=== PATIENT | male | born 1960 | race Caucasian/White ===

== ENCOUNTER → 2017-09-04 16:58 | Outpatient (CLI) | payer MEDICARE, SELFPAY | PROVIDERS: Visit Provider Internal Medicine Hematology & Oncology | DX: C90.00 Multiple myeloma not having achieved remission (principal) | CPT/HCPCS: 86850; 86900 ==

== ENCOUNTER 2018-06-25 12:58 | Inpatient (IN) | payer MEDICARE, MEDICAID, SELFPAY ==
[2018-06-25] VITALS (8 sets, daily range): BP systolic 122–134; BP diastolic 69–79; PULSE 81–95; RESP 15–26; TEMP 36.7–37.5; O2SAT 95–98; BMI 25.1; BMI 25.2; BMI 25.4
[2018-06-25] MEDS: 0.9% Normal Saline 1,000 ML 999 ML IV (15:05)
[2018-06-25 15:24] LABS: Absolute Lymphocyte Count 0.74 X10^3/ul (0.83-4.51); Absolute Neutrophil Count 3.9 X10^3/uL (2.0-7.7); Basophil# 0.01 X10^3/uL; Basophil% 0.2 % (0-1); Eosinophil# 0.06 X10^3/uL; Eosinophils% 1.2 % (0-5); Hemoglobin 12.9 g/dl (13.0-16.5); Lymphocyte # 0.74 X10^3/ul (4.0); Lymphocyte % 14.3 % (19-41); Mean Corp Hgb Conc 33.1 g/gl (32-36); Mean Corpuscular Hgb 32.3 pg (27.0-32.0); Mean Corpuscular Volume 97.5 fL (80-94); Mean Platelet Vol. 10.5 fl (6.2-12.0); Monocyte# 0.51 X10^3/uL; Monocyte% 9.8 % (0-10); Neutrophil # 3.86 X10^3/uL (2.7-7.7); Neutrophil % 74.3 % (47-70); Platelet Count 211 K/mm3 (150-450); RBC Distribution Width CV 13.3 % (11.6-14.6); RBC Distribution Width SD 47.5 fl (35.1-43.9); White Blood Count 5.2 K/mm3 (4.4-11.0)
[2018-06-25 15:27] LABS: AST(SGOT) 34 U/L (15-37); Alanine Aminotransfer ALT/SGPT 36 U/L (16-61); Albumin, Serum 3.6 g/dL (3.2-5.0); Alkaline Phosphatase 132 U/L (45-117); Anion Gap 11 (5-15); BUN 20 mg/dL (7-18); Calcium,Total 12.8 mg/dL (8.5-10.1); Chloride 104 mmol/L (98-107); Creatinine, Serum 2.49 mg/dL (0.70-1.30); EST Glomerular Filtration Rate 29 mL/min (>60); Est Glom Filt Rate - Afr Amer 35 mL/min (>60); Estimated Creatinine Clearance 32.73 ml/min; Globulin 3.6 g/dL (2.2-4.2); Glucose 95 mg/dL (74-106); Protein, Total 7.2 g/dL (6.4-8.2); Sodium Level 141 mmol/L (136-145)
[2018-06-25 15:33] LABS: POSITIVE COUNT NO; POSITIVE DIFFERENTIAL NO; POSITIVE MORPHOLOGY NO
--- NOTE | 2018-06-25 15:33 | ED.RN ---
LAB CALLED CRITICAL LAB ON THIS PT CALCIUM OF 12.8, DR STRANGE NOTIFIED, NFO GIVEN AT THIS TIME
--- NOTE | 2018-06-25 15:48 | ED.VISSUMM ---
- ER Visit Summary Date of Service: 06/25/18 Chief Complaint: Acute kidney injury History of Present Illness: The patient is a 57 M who was sent for acute kidney injury. He has a history of multiple myeloma. He has been doing well on his treatment. He had outside labs that showed an elevated creatinine and his calcium was 14.2. He has decreased appetite. Otherwise no symptoms. Physical Examination: Afebrile and vital signs unremarkable. No acute distress. Alert and oriented. Heart regular. Lungs clear. Abdomen soft. Test Results: Hematoma 12.9, BUN 20, creatinine 2.49, total bilirubin 1.3, alkaline phosphatase 132, calcium 12.8. Emergency Department Course and Treatment: Patient was treated with IV fluids. Labs were obtained. He was admitted to the hospitalist. Treatment Plan: As above Disposition: Admission Impression: 1. Acute kidney injury 2. Hypercalcemia 3. Multiple myeloma This note was generated with Speek dictation software. It may contain incorrect words, spelling, and punctuation that were not noted in review of the chart prior to signing ED Disposition - Plan for ED Patient: Chief Complaint: Abn Labs Referrals: Care Physician,No Primary [Primary Care Provider] -
--- NOTE | 2018-06-25 15:51 | ED.DCSUM_ITS ---
- ER Visit Summary Date of Service: 06/25/18 Chief Complaint: Acute kidney injury History of Present Illness: The patient is a 57 M who was sent for acute kidney injury. He has a history of multiple myeloma. He has been doing well on his treatment. He had outside labs that showed an elevated creatinine and his calcium was 14.2. He has decreased appetite. Otherwise no symptoms. Physical Examination: Afebrile and vital signs unremarkable. No acute distress. Alert and oriented. Heart regular. Lungs clear. Abdomen soft. Test Results: Hematoma 12.9, BUN 20, creatinine 2.49, total bilirubin 1.3, alkaline phosphatase 132, calcium 12.8. Emergency Department Course and Treatment: Patient was treated with IV fluids. Labs were obtained. He was admitted to the hospitalist. Treatment Plan: As above Disposition: Admission Impression: 1. Acute kidney injury 2. Hypercalcemia 3. Multiple myeloma This note was generated with CriticalBlue dictation software. It may contain incorrect words, spelling, and punctuation that were not noted in review of the chart prior to signing ED Disposition - Plan for ED Patient: Chief Complaint: Abn Labs Referrals: Care Physician,No Primary [Primary Care Provider] -
--- NOTE | 2018-06-25 16:22 | PCM.HP.STD ---
Problem List (1) DANIEL (acute kidney injury) Status: Acute (2) Hypercalcemia Status: Acute History of Present Illness Date of Admission: 06/25/18 Chief Complaint: weakness The patient is a 57 year old M with multiple myeloma, who is been feeling weak for the past several weeks. Had some lab work today that was alarmed urgency room. In the emergency room, patient was noted to have a calcium of 12.8 and a creatinine of 2.49. No baseline lab work is available in our electronic medical record. Patient's has noted that he has a different speech, that it is more slurred. Patient notes that he has been weaker and requiring the use of a walker. Patient be admitted for further evaluation and treatment of his hypercalcemia and presumed acute kidney injury. [] Past Medical History Medical History: Medical History (Last Updated 06/25/18 @ 16:24 by Clarence Morales DO) Multiple myeloma C90.00 Allergies hydrocodone Adverse Reaction (Verified 06/25/18 12:58) Other Home Medications: Ambulatory Orders Medication Instructions Recorded Aspirin/Caffeine [Back-Body Pain 1 tab PO DAILY 06/25/18 Reliever Caplet] Gabapentin [Neurontin] 300 mg PO TID 06/25/18 Oxycodone HCl/Acetaminophen 2 tab PO Q4H PRN PRN 06/25/18 [Oxycodone-Acetaminophen 5-325] Potassium Chloride 20 meq PO DAILY 06/25/18 Smoking Status: Never smoker Tobacco Use: Non-smoker Alcohol: Occasional Drugs: None - *Family History Maternal History Items: Unknown - Patient is adopted Review of Systems Constitutional: Denies: Anorexia, Chills, Fever Eyes: Denies: Blurred vision, Double vision HEENT: Denies: Head Aches, Sinus Congestion, Sinus Drainage Cardiovascular: Denies: Chest Pain, Palpitations Respiratory: Denies: Cough, Shortness of breath at rest, Sputum production Gastrointestinal: Denies: Abdominal Pain, Nausea, Vomiting Genitourinary: Denies: Dysuria Musculoskeletal: Denies: Joint Pain, Joint Tenderness Skin: Denies: Rash, Wounds Neurological: Reports: Balance problems. Denies: Blurred vision, Double vision Psychiatric: Denies: Anxiety, Depression Endocrine: Denies: Change in Body Habitus, Heat/ Cold Intolerance Hematologic/ Lymphatic: Denies: Easy Bruising, Easy Bleeding, Hx of blood clot Comment: A 10 point review of systems were negative except as mentioned in the history of present illness and the other review of systems. VTE Information - Inpt Only VTE Present on Admission: No VTE Pharm Prophylaxis ordered?: Yes Patient Problems: Active and Suspected Problems DANIEL (acute kidney injury) (Acute) Hypercalcemia (Acute) - Physical Exam General: Alert, Cooperative, No apparent distress HEENT: Atraumatic, PERRLA, EOMI, Normocephalic Oral: Moist Mucosa, - - Edentulous Neck: No Nodes, Thyroid Normal Size and Texture Lungs: Clear to auscultation, Normal air movement, No rhonchi, No wheeze Cardiovascular: Regular rate, Regular Rhythm, Normal S1, Normal S2, No murmurs Abdomen: Bowel Sounds Present, Soft, Non Tender, Non-Distended, No Hepato-splenomegaly Extremities: No edema, No Calf Tenderness Skin: No rashes, No breakdown Musculoskeletal: No Tenderness to Palpation of Joints or Extremities, No Muscle Wasting Neurological: Cranial nerves II-XII grossly intact, Motor Exam 5/5 strength throughout, Muscle tone normal, Sensory exam intact to light touch and pain Psych/Mental Status: Normal Affect, Appropriate Vital Signs Temp Pulse Resp BP Pulse Ox 36.7 C 81 26 H 122/73 H 96 06/25/18 15:30 06/25/18 15:30 06/25/18 15:30 06/25/18 15:30 06/25/18 15:30 Oxygen Delivery Method Room Air Weight: 77.3 kg Body Mass Index (BMI) 25.1 Laboratory Tests Past 24 Hrs 06/25/18 06/25/18 15:04 15:04 WBC 5.2 RBC 4.00 L Hgb 12.9 L Hct 39.0 L MCV 97.5 H MCH 32.3 H MCHC 33.1 RDW 13.3 RDW Differential 47.5 H Plt Count 211 MPV 10.5 Immature Gran % (Auto) 0.200 Neut % (Auto) 74.3 H Lymph % (Auto) 14.3 L [place] % (Auto) 9.8 Eos % (Auto) 1.2 Baso % (Auto) 0.2 Absolute Neuts (auto) 3.9 Absolute Lymphs (auto) 0.74 L Total Counted Not Reportable Sodium 141 Potassium 4.0 Chloride 104 Carbon Dioxide 26.0 Anion Gap 11 BUN 20 H Creatinine 2.49 H Estim Creat Clear Calc 32.73 Est GFR (MDRD) Af Amer 35 L Est GFR (MDRD) Non-Af 29 L BUN/Creatinine Ratio 8.0 L Glucose 95 Calcium 12.8 H* Total Bilirubin 1.30 H AST 34 ALT 36 Alkaline Phosphatase 132 H Total Protein 7.2 Albumin 3.6 Globulin 3.6 Albumin/Globulin Ratio 1.0 Assessment/Plan All Active Problems DANIEL (acute kidney injury) (Acute) Hypercalcemia (Acute) 1. Acute hypercalcemia Likely due to his multiple myeloma Will check parathyroid hormone IV fluids with half-normal saline at 200 cc/h for 2 L 2. Acute kidney injury Presumed new as no baseline labs available to compare to at this time IV fluids Check urine studies Suspect related with the hypercalcemia If worse, consider nephrology consultation. 3. Multiple myeloma Follows with Dr. Soto Hold off on consultation at this time 4. DVT prophylaxis with heparin 5. Advanced care planning: Discussed CPR, intubation and PEG tube with patient. Patient would want all those treatments if necessary. Case discussed with his significant other at bedside. Code Visit Inpatient E&M: 10059 Init Hosp L3
[2018-06-25] MEDS: 0.45% Normal Saline 1,000 ML 200 ML IV ×2 (17:03→22:50)
[2018-06-25 17:12] LABS: PTHIN 33.7 pg/mL (18.4-80.1)
[2018-06-25 18:29] LABS: Bacteria 0 SEEN /hpf (None Seen); Mucous, Urine 0 SEEN /hpf (<or=2+); Red Blood Cells-Urine 0 SEEN /hpf (0-5); Squamous Epithelial Cells - UA 0 SEEN /hpf (0-5)
[2018-06-25 19:10] LABS: Urine Sodium 44 mmol/L (Not Establ.)
[2018-06-25 19:31] LABS: Color, Urine Yellow (Yellow); Glucose, Dipstick Normal (Normal); Ketone-Dipstick Negative (Negative); Leukocyte Esterase-Dipstick Negative /ul (Negative); Nitrite-Dipstick Negative (Negative); Occult Blood-Urine 10 /ul (Negative); Protein-Dipstick 30 mg/dl (Negative); Urine Bilirubin Dipstick Negative (Negative); Urine Clarity Clear (Clear); Urine Urobilinogen Normal (Normal)
[2018-06-25 19:41] LABS: White Blood Cells 0-5 SEEN /hpf (0-5)
[2018-06-25] MEDS: Heparin Injection (Vial) 5,000 UNIT/ML VIAL 5000 UNIT SC (21:21)
[2018-06-25] MEDS: oxyCODONE 5 MG Tablet 10 MG PO (22:58)
[2018-06-26] VITALS (9 sets, daily range): BP systolic 95–126; BP diastolic 50–71; PULSE 69–87; RESP 16–18; TEMP 36.7–37.1; O2SAT 96–97
[2018-06-26] MEDS: Heparin Injection (Vial) 5,000 UNIT/ML VIAL 5000 UNIT SC ×3 (06:17→21:05)
[2018-06-26 07:56] LABS: Anion Gap 12 (5-15); BUN 19 mg/dL (7-18); BUN/Creat Ratio 8.2 RATIO (10-20); Calcium,Total 11.6 mg/dL (8.5-10.1); Chloride 106 mmol/L (98-107); Creatinine, Serum 2.31 mg/dL (0.70-1.30); EST Glomerular Filtration Rate 31 mL/min (>60); Est Glom Filt Rate - Afr Amer 38 mL/min (>60); Estimated Creatinine Clearance 34.13 ml/min; Glucose 88 mg/dL (74-106); Magnesium 1.8 mg/dL (1.6-2.6); Potassium 3.4 mmol/L (3.5-5.1); Sodium Level 143 mmol/L (136-145)
[2018-06-26] MEDS: 0.9% Normal Saline 1,000 ML 150 ML IV ×3 (09:48→23:09)
[2018-06-26] MEDS: Furosemide 40 MG/4 ML Vial IV (09:49)
--- NOTE | 2018-06-26 09:55 | EKG12_ITS ---
Test Reason : ABNORMAL LABS Blood Pressure : / mmHG Vent. Rate : 082 BPM Atrial Rate : 082 BPM P-R Int : 166 ms QRS Dur : 094 ms QT Int : 334 ms P-R-T Axes : 070 044 052 degrees QTc Int : 390 ms Normal sinus rhythm Normal ECG Confirmed by NEAL VALDES, DION ([id number]), editor index PATRICE DENIS ([id number]) on 06/28/2018 11:01:08 AM Referred By: SONIA Confirmed By:DION DE JESUS MD
[2018-06-26 10:06] LABS: Phosphorus 3.8 mg/dL (2.5-4.9)
[2018-06-26 10:14] LABS: Vitamin D,25 Hydroxy 8.6 ng/mL (29.95-100.01)
--- NOTE | 2018-06-26 10:20 | PN_ITS ---
Patient Problems: Active and Suspected Problems (Last Updated 06/25/18 @ 16:24 by Clarence Morales DO) DANIEL (acute kidney injury) (Acute) Hypercalcemia (Acute) Subjective: Chief complaint: Follow-up after admission for acute hypercalcemia and acute kidney injury. Patient seen and examined. No acute events overnight. He denied any significant complaints. He denied abdominal pain, nausea or vomiting. He denied chest pain or shortness of breath. He has been urinating adequately. Denies fever or chills. His vital signs are stable. - Physical Exam General: Alert, Oriented x3, Cooperative, No apparent distress HEENT: Atraumatic, PERRLA, EOMI, Normocephalic Oral: Moist Mucosa, No Gingival or Mucosal Lesions/ Ulcerations Neck: Supple, No JVD, Negative Carotid Bruits, Trachea Midline, Thyroid Normal Size and Texture Lungs: Clear to auscultation, Normal air movement, No rhonchi, No wheeze, No rales Cardiovascular: Regular rate, Regular Rhythm, Normal S1, Normal S2, PMI Normal Abdomen: Bowel Sounds Present, Soft, Non Tender, Non-Distended, No Hepato- splenomegaly Extremities: No clubbing, No cyanosis, No edema Skin: No rashes, No breakdown Lymphatic: No Cervical, Supraclavicular, or Inguinal Adenopathy Neurological: Cranial nerves II-XII grossly intact, Motor Exam 5/5 strength throughout Psych/Mental Status: Normal Affect, Appropriate, Alert and oriented to time, place, person, mood and affect Vital Signs Temp Pulse Resp BP Pulse Ox 98.5 F 84 18 95/50 L 96 06/26/18 09:45 06/26/18 09:45 06/26/18 09:45 06/26/18 09:45 06/26/18 09:45 Oxygen Delivery Method Room Air Weight: 167 lb Body Mass Index (BMI) 25.4 Intake and Output for Last 24 Hours 06/24/18 06/25/18 06/26/18 23:59 23:59 23:59 Intake Total 2664 / 2664 Output Total 550 / 550 Balance 2114 / 2114 Laboratory Tests Past 24 Hrs 06/25/18 06/25/18 06/25/18 15:04 15:04 15:04 WBC 5.2 RBC 4.00 L Hgb 12.9 L Hct 39.0 L MCV 97.5 H MCH 32.3 H MCHC 33.1 RDW 13.3 RDW Differential 47.5 H Plt Count 211 MPV 10.5 Immature Gran % (Auto) 0.200 Neut % (Auto) 74.3 H Lymph % (Auto) 14.3 L [place] % (Auto) 9.8 Eos % (Auto) 1.2 Baso % (Auto) 0.2 Absolute Neuts (auto) 3.9 Absolute Lymphs (auto) 0.74 L Total Counted Not Reportable Eos Smear Total Cells Serum Viscosity Sodium 141 Potassium 4.0 Chloride 104 Carbon Dioxide 26.0 Anion Gap 11 BUN 20 H Creatinine 2.49 H Estim Creat Clear Calc 32.73 Est GFR (MDRD) Af Amer 35 L Est GFR (MDRD) Non-Af 29 L BUN/Creatinine Ratio 8.0 L Glucose 95 Calcium 12.8 H* Ionized Calcium Phosphorus Magnesium Total Bilirubin 1.30 H AST 34 ALT 36 Alkaline Phosphatase 132 H Total Protein 7.2 Total Protein (PEP) Albumin 3.6 Albumin (PEP) Globulin 3.6 Globulin (PEP) Albumin/Globulin Ratio 1.0 Albumin/Globulin (PEP) Rampu-7-Nwdfgitfi Makrt-4-Kifzkvsrd Beta Globulins Gamma Globulins M-Abimael Vitamin D 25-Hydroxy Vit D 1,25-Dihydroxy PTH Intact 33.7 Urine Color Urine Clarity Urine pH Ur Specific [place] Urine Protein Urine Glucose (UA) Urine Ketones Urine Occult Blood Urine Nitrite Urine Bilirubin Urine Urobilinogen Ur Leukocyte Esterase Urine RBC Urine WBC Ur Squamous Epith Cells Urine Bacteria Urine Mucus Ur Random Sodium Urine Creatinine 06/25/18 06/25/18 06/25/18 18:15 18:15 18:15 WBC RBC Hgb Hct MCV MCH MCHC RDW RDW Differential Plt Count MPV Immature Gran % (Auto) Neut % (Auto) Lymph % (Auto) [place] % (Auto) Eos % (Auto) Baso % (Auto) Absolute Neuts (auto) Absolute Lymphs (auto) Total Counted Eos Smear Total Cells Pending Serum Viscosity Sodium Potassium Chloride Carbon Dioxide Anion Gap BUN Creatinine Estim Creat Clear Calc Est GFR (MDRD) Af Amer Est GFR (MDRD) Non-Af BUN/Creatinine Ratio Glucose Calcium Ionized Calcium Phosphorus Magnesium Total Bilirubin AST ALT Alkaline Phosphatase Total Protein Total Protein (PEP) Albumin Albumin (PEP) Globulin Globulin (PEP) Albumin/Globulin Ratio Albumin/Globulin (PEP) Eedll-1-Yfjxktkfo Rpfzk-0-Crwdqfwnz Beta Globulins Gamma Globulins M-Abimael Vitamin D 25-Hydroxy Vit D 1,25-Dihydroxy PTH Intact Urine Color Yellow Urine Clarity Clear Urine pH 6.0 Ur Specific [place] 1.020 Urine Protein 30 H Urine Glucose (UA) Normal Urine Ketones Negative Urine Occult Blood 10 H Urine Nitrite Negative Urine Bilirubin Negative Urine Urobilinogen Normal Ur Leukocyte Esterase Negative Urine RBC 0 SEEN Urine WBC 0-5 SEEN Ur Squamous Epith Cells 0 SEEN Urine Bacteria 0 SEEN Urine Mucus 0 SEEN Ur Random Sodium Urine Creatinine 87.80 06/25/18 06/26/18 06/26/18 18:15 06:47 06:47 WBC RBC Hgb Hct MCV MCH MCHC RDW RDW Differential Plt Count MPV Immature Gran % (Auto) Neut % (Auto) Lymph % (Auto) [place] % (Auto) Eos % (Auto) Baso % (Auto) Absolute Neuts (auto) Absolute Lymphs (auto) Total Counted Eos Smear Total Cells Serum Viscosity Sodium 143 Potassium 3.4 L Chloride 106 Carbon Dioxide 25.0 Anion Gap 12 BUN 19 H Creatinine 2.31 H Estim Creat Clear Calc 34.13 Est GFR (MDRD) Af Amer 38 L Est GFR (MDRD) Non-Af 31 L BUN/Creatinine Ratio 8.2 L Glucose 88 Calcium 11.6 H Ionized Calcium Pending Phosphorus Magnesium 1.8 Total Bilirubin AST ALT Alkaline Phosphatase Total Protein Total Protein (PEP) Albumin Albumin (PEP) Globulin Globulin (PEP) Albumin/Globulin Ratio Albumin/Globulin (PEP) Rzwxr-8-Ebswyaybc Hytji-6-Sgrvxgivm Beta Globulins Gamma Globulins M-Abimael Vitamin D 25-Hydroxy Vit D 1,25-Dihydroxy PTH Intact Urine Color Urine Clarity Urine pH Ur Specific [place] Urine Protein Urine Glucose (UA) Urine Ketones Urine Occult Blood Urine Nitrite Urine Bilirubin Urine Urobilinogen Ur Leukocyte Esterase Urine RBC Urine WBC Ur Squamous Epith Cells Urine Bacteria Urine Mucus Ur Random Sodium 44 Urine Creatinine 06/26/18 06/26/18 06/26/18 06:47 08:04 08:04 WBC RBC Hgb Hct MCV MCH MCHC RDW RDW Differential Plt Count MPV Immature Gran % (Auto) Neut % (Auto) Lymph % (Auto) [place] % (Auto) Eos % (Auto) Baso % (Auto) Absolute Neuts (auto) Absolute Lymphs (auto) Total Counted Eos Smear Total Cells Serum Viscosity Pending Sodium Potassium Chloride Carbon Dioxide Anion Gap BUN Creatinine Estim Creat Clear Calc Est GFR (MDRD) Af Amer Est GFR (MDRD) Non-Af BUN/Creatinine Ratio Glucose Calcium Ionized Calcium Phosphorus 3.8 Magnesium Total Bilirubin AST ALT Alkaline Phosphatase Total Protein Total Protein (PEP) Pending Albumin Albumin (PEP) Pending Globulin Globulin (PEP) Pending Albumin/Globulin Ratio Albumin/Globulin (PEP) Pending Dgwlc-7-Dfouciezv Pending Iwmcc-1-Lnkxtciiq Pending Beta Globulins Pending Gamma Globulins Pending M-Abimael Pending Vitamin D 25-Hydroxy 8.6 L Vit D 1,25-Dihydroxy PTH Intact Urine Color Urine Clarity Urine pH Ur Specific [place] Urine Protein Urine Glucose (UA) Urine Ketones Urine Occult Blood Urine Nitrite Urine Bilirubin Urine Urobilinogen Ur Leukocyte Esterase Urine RBC Urine WBC Ur Squamous Epith Cells Urine Bacteria Urine Mucus Ur Random Sodium Urine Creatinine 06/26/18 08:04 WBC RBC Hgb Hct MCV MCH MCHC RDW RDW Differential Plt Count MPV Immature Gran % (Auto) Neut % (Auto) Lymph % (Auto) [place] % (Auto) Eos % (Auto) Baso % (Auto) Absolute Neuts (auto) Absolute Lymphs (auto) Total Counted Eos Smear Total Cells Serum Viscosity Sodium Potassium Chloride Carbon Dioxide Anion Gap BUN Creatinine Estim Creat Clear Calc Est GFR (MDRD) Af Amer Est GFR (MDRD) Non-Af BUN/Creatinine Ratio Glucose Calcium Ionized Calcium Phosphorus Magnesium Total Bilirubin AST ALT Alkaline Phosphatase Total Protein Total Protein (PEP) Albumin Albumin (PEP) Globulin Globulin (PEP) Albumin/Globulin Ratio Albumin/Globulin (PEP) Zdvkb-1-Cojyskamd Noxmn-6-Cvxpxgarx Beta Globulins Gamma Globulins M-Abimael Vitamin D 25-Hydroxy Vit D 1,25-Dihydroxy Pending PTH Intact Urine Color Urine Clarity Urine pH Ur Specific [place] Urine Protein Urine Glucose (UA) Urine Ketones Urine Occult Blood Urine Nitrite Urine Bilirubin Urine Urobilinogen Ur Leukocyte Esterase Urine RBC Urine WBC Ur Squamous Epith Cells Urine Bacteria Urine Mucus Ur Random Sodium Urine Creatinine Medical Necessity - Tobacco Use Smoking Status: Never smoker Tobacco Use: Non-smoker Assessment/Plan All Active Problems (Last Updated 06/25/18 @ 16:24 by Clarence Morales DO) DANIEL (acute kidney injury) (Acute) Hypercalcemia (Acute) This is a 57 years old male patient presented to the emergency room because of weakness for several weeks duration, had blood work that was done as outpatient and that revealed hypercalcemia and acute kidney injury and he was admitted for treatment. #1 hypercalcemia: In context of history of multiple myeloma, currently on treatment. On admission, calcium was 12.8 mg/dL with normal serum albumin indicating hypercalcemia. Phosphorus and magnesium were normal. PTH was normal as well. Vitamin D 25-hydroxy is 8.6, low. Vitamin D 125 hydroxy is pending. LFT was normal. With IV fluid therapy, calcium came down to 11.6 mg/dL today. Protein electrophoresis and immunoglobulin assay are pending. Plan: Restart IV fluids at 150 cc/h, will give 1 dose of IV Lasix, repeat CBC and BMP tomorrow morning. #2 acute kidney injury: Likely secondary to hypercalcemia. Patient has no past history of chronic kidney disease. Admission creatinine was 2.49, came down to 2.31 today, slightly improved. His urine output satisfactory. Plan to continue IV fluids as above, repeat BMP tomorrow morning. #3 multiple myeloma: Currently on treatment, follows up with Dr. Matthews as outpatient. Workup for active multiple myeloma is pending. #4 peripheral neuropathy: Continue gabapentin. #5 DVT prophylaxis: Subcu heparin. This note was generated with [employer] dictation software. It may contain incorrect words, spelling, and punctuation that were not noted in checking the note before signing. Code Visit Inpatient E&M: 92616 Subs Hosp L2
--- NOTE | 2018-06-26 10:37 | PCA ---
release of medical records faxed over to 's office to obtain patients lab work
--- NOTE | 2018-06-26 10:41 | PCA ---
lab work obtained from 's office and placed on the front of pts chart
--- NOTE | 2018-06-26 11:30 | CASEMGMT ---
REINA FONSECA Face to Face with patient for initial transition planning/care coordination assessment. RN RAYMUNDO introduced self and role at [facility]. Patient lying in bed, alert and oriented, at bedside. Patient willing to participate in assessment and is able to answer all questions appropriately. Care providers, pharmacy, and demographics verified. Patient wishes to discharge home, denies need for home health at this time. Patient states he has no further needs or concerns at this time. CM to follow for discharge planning needs that may arise. PCP: Brittany Specialists: [facility] Pharmacy: [facility] Insurance: [facility] Prescription Benefit: Yes Living Will/HPOA: None LNOK: Living Arrangements: Patient lives with in home with bed and bath on first floor. Transportation: self/ DME/HHC: Patient denies need for DME Disposition Plan: Patient to discharge home with family support and follow-up plans in place. Eliane HARMAN, RN, CM
[2018-06-26] MEDS: Gabapentin 300 MG Capsule PO (17:14)
[2018-06-26] MEDS: Acetaminophen 325 MG Tablet 650 MG PO (18:00)
[2018-06-26] MEDS: oxyCODONE 5 MG Tablet 10 MG PO (18:00)
[2018-06-27] VITALS (7 sets, daily range): BP systolic 116–125; BP diastolic 66–75; PULSE 62–82; RESP 16–18; TEMP 36.7–37.1; O2SAT 95–98
[2018-06-27 04:29] LABS: 24HR. UA Prot. Total Volume 2800 mL; Urine Protein (24 Hour) 133.1 mg/dL (<11.9)
[2018-06-27] MEDS: 0.9% Normal Saline 1,000 ML 150 ML IV ×4 (05:23→23:19)
[2018-06-27] MEDS: Heparin Injection (Vial) 5,000 UNIT/ML VIAL 5000 UNIT SC ×3 (05:23→21:46)
[2018-06-27 07:03] LABS: Absolute Lymphocyte Count 0.57 X10^3/ul (0.83-4.51); Absolute Neutrophil Count 2.3 X10^3/uL (2.0-7.7); Basophil# 0.01 X10^3/uL; Basophil% 0.3 % (0-1); Eosinophil# 0.07 X10^3/uL; Eosinophils% 2.1 % (0-5); Hematocrit 35.7 % (40-54); Hemoglobin 11.7 g/dl (13.0-16.5); Lymphocyte # 0.57 X10^3/ul (4.0); Lymphocyte % 16.8 % (19-41); Mean Corp Hgb Conc 32.8 g/gl (32-36); Mean Corpuscular Hgb 32.3 pg (27.0-32.0); Mean Corpuscular Volume 98.6 fL (80-94); Mean Platelet Vol. 10.5 fl (6.2-12.0); Monocyte# 0.43 X10^3/uL; Monocyte% 12.7 % (0-10); Neutrophil # 2.31 X10^3/uL (2.7-7.7); Neutrophil % 68.1 % (47-70); Platelet Count 160 K/mm3 (150-450); RBC Distribution Width CV 13.4 % (11.6-14.6); RBC Distribution Width SD 48.3 fl (35.1-43.9); Red Blood Count 3.62 M/mm3 (4.6-6.2); White Blood Count 3.4 K/mm3 (4.4-11.0)
[2018-06-27 07:10] LABS: Anion Gap 11 (5-15); BUN 18 mg/dL (7-18); Calcium,Total 11.3 mg/dL (8.5-10.1); Chloride 109 mmol/L (98-107); Creatinine, Serum 2.25 mg/dL (0.70-1.30); EST Glomerular Filtration Rate 32 mL/min (>60); Est Glom Filt Rate - Afr Amer 39 mL/min (>60); Estimated Creatinine Clearance 35.04 ml/min; Glucose 85 mg/dL (74-106); Sodium Level 145 mmol/L (136-145)
[2018-06-27 07:14] LABS: Differential Indicated SCAN CRITERIA MET; POSITIVE COUNT NO; POSITIVE DIFFERENTIAL YES; POSITIVE MORPHOLOGY NO
[2018-06-27] MEDS: Gabapentin 300 MG Capsule PO ×3 (09:03→17:02)
--- NOTE | 2018-06-27 09:26 | PN_ITS ---
Patient Problems: Active and Suspected Problems (Last Updated 06/25/18 @ 16:24 by Clarence Morales DO) DANIEL (acute kidney injury) (Acute) Hypercalcemia (Acute) Subjective: Chief complaint: Follow-up after admission for acute hypercalcemia and acute kidney injury. Patient seen and examined. No acute events overnight. He is asymptomatic, no complaints. His vital signs are stable. - Physical Exam General: Alert, Oriented x3, Cooperative, No apparent distress HEENT: Atraumatic, PERRLA, EOMI, Normocephalic Oral: Moist Mucosa, No Gingival or Mucosal Lesions/ Ulcerations Neck: Supple, No JVD, Negative Carotid Bruits, Trachea Midline, Thyroid Normal Size and Texture Lungs: Clear to auscultation, No rhonchi, No wheeze, No rales, Diminished Cardiovascular: Regular rate, Regular Rhythm, Normal S2, PMI Normal Abdomen: Bowel Sounds Present, Soft, Non Tender, Non-Distended, No Hepato- splenomegaly Extremities: No clubbing, No cyanosis, No edema Skin: No rashes, No breakdown Lymphatic: No Cervical, Supraclavicular, or Inguinal Adenopathy Neurological: Cranial nerves II-XII grossly intact, Neuro grossly intact Psych/Mental Status: Normal Affect, Appropriate, Alert and oriented to time, place, person, mood and affect Vital Signs Temp Pulse Resp BP Pulse Ox 98.2 F 79 18 116/66 98 06/27/18 08:56 06/27/18 08:56 06/27/18 08:56 06/27/18 08:56 06/27/18 08:56 Oxygen Delivery Method Room Air Weight: 167 lb 1.766 oz Body Mass Index (BMI) 25.4 Intake and Output for Last 24 Hours 06/25/18 06/26/18 06/27/18 23:59 23:59 23:59 Intake Total 3008 / 3008 2349 / 2349 Output Total 3000 / 3000 500 / 500 Balance 1849 / 1849 Laboratory Tests Past 24 Hrs 06/26/18 06/26/18 06/26/18 08:04 08:04 08:04 WBC RBC Hgb Hct MCV MCH MCHC RDW RDW Differential Plt Count MPV Immature Gran % (Auto) Neut % (Auto) Lymph % (Auto) [place] % (Auto) Eos % (Auto) Baso % (Auto) Absolute Neuts (auto) Absolute Lymphs (auto) Total Counted Diff Path Review Sodium Potassium Chloride Carbon Dioxide Anion Gap BUN Creatinine Estim Creat Clear Calc Est GFR (MDRD) Af Amer Est GFR (MDRD) Non-Af BUN/Creatinine Ratio Glucose Calcium Phosphorus 3.8 Vitamin D 25-Hydroxy 8.6 L Vit D 1,25-Dihydroxy Pending Urine Collection Time Timed Urine Volume Ur Total Protein 24 Hr Urine Total Protein 06/26/18 06/27/18 06/27/18 22:20 05:30 05:30 WBC 3.4 L RBC 3.62 L Hgb 11.7 L Hct 35.7 L MCV 98.6 H MCH 32.3 H MCHC 32.8 RDW 13.4 RDW Differential 48.3 H Plt Count 160 MPV 10.5 Immature Gran % (Auto) 0.000 Neut % (Auto) 68.1 Lymph % (Auto) 16.8 L [place] % (Auto) 12.7 H Eos % (Auto) 2.1 Baso % (Auto) 0.3 Absolute Neuts (auto) 2.3 Absolute Lymphs (auto) 0.57 L Total Counted Not Reportable Diff Path Review May foll Sodium 145 Potassium 3.0 L Chloride 109 H Carbon Dioxide 25.0 Anion Gap 11 BUN 18 Creatinine 2.25 H Estim Creat Clear Calc 35.04 Est GFR (MDRD) Af Amer 39 L Est GFR (MDRD) Non-Af 32 L BUN/Creatinine Ratio 8.0 L Glucose 85 Calcium 11.3 H Phosphorus Vitamin D 25-Hydroxy Vit D 1,25-Dihydroxy Urine Collection Time 24.0 Timed Urine Volume 2800 Ur Total Protein 24 Hr 3726.8 H Urine Total Protein 133.1 H Medical Necessity - Tobacco Use Smoking Status: Never smoker Tobacco Use: Non-smoker Assessment/Plan All Active Problems (Last Updated 06/25/18 @ 16:24 by Clarence Morales DO) DANIEL (acute kidney injury) (Acute) Hypercalcemia (Acute) This is a 57 years old male patient presented to the emergency room because of weakness for several weeks duration, had blood work that was done as outpatient and that revealed hypercalcemia and acute kidney injury and he was admitted for treatment. #1 hypercalcemia: He is on IV fluids, received 1 dose of IV Lasix. Serum calcium is coming down very slowly, today's calcium is 11.3 mg/dL. Serum magnesium and phosphorus were normal. He had history of multiple myeloma, currently on treatment. On admission, calcium was 12.8 mg/dL with normal serum albumin indicating hypercalcemia. PTH was normal as well. Vitamin D 25-hydroxy is 8.6, low. Vitamin D 125 hydroxy is pending. LFT was normal. Protein electrophoresis and immunoglobulin assay are pending. Plan to continue IV fluids, encourage oral intake, repeat BMP tomorrow morning. #2 acute kidney injury: Likely secondary to hypercalcemia. Patient has no past history of chronic kidney disease. Admission creatinine was 2.49, came down to 2.25 today, continued to improve slowly his urine output satisfactory. Plan to continue IV fluids as above, repeat BMP tomorrow morning. #3 hypokalemia: Today's potassium is down to 3. Serum magnesium and phosphorus were normal. Plan to replace potassium with oral potassium chloride, repeat BMP tomorrow morning. #4 multiple myeloma: Currently on treatment, follows up with Dr. Soto as outpatient. Workup for active multiple myeloma is pending. #5 peripheral neuropathy: Continue gabapentin. #6 DVT prophylaxis: Subcu heparin. This note was generated with [employer] dictation software. It may contain incorrect words, spelling, and punctuation that were not noted in checking the note before signing. Code Visit Inpatient E&M: 24936 Subs Hosp L2
[2018-06-27 14:31] LABS: Pathologist Review Reviewed
[2018-06-27] MEDS: oxyCODONE 5 MG Tablet 10 MG PO (18:33)
[2018-06-27] MEDS: Acetaminophen 325 MG Tablet 650 MG PO (18:33)
[2018-06-28] MEDS: 0.9% Normal Saline 1,000 ML 150 ML IV ×2 (02:55→09:24)
[2018-06-28] MEDS: 0.9% NaCl Peripheral Flush Adult/Peds IV (02:58)
[2018-06-28 03:01] VITALS: BP 122/70; PULSE 78; RESP 18; TEMP 36.6; O2SAT 97
--- NOTE | 2018-06-28 03:22 | NURSING ---
This RN walked into pt's room to check his vitals and do his focused assessment and pt was sitting on side of bed with gown and blankets on floor & blood everywhere. Pt states was trying to get up to go to the bathroom/fix his blankets and stepped on IV tubing. Tubing was broken. This RN and GLAZIER SUPERVISOR assisted pt to get cleaned up. IV was actually still intact so was flushed and new bag & tubing just hung. Instructed pt to call next time he needed to get up to prevent anything from happening again. Bed alarm also on.
[2018-06-28] MEDS: Heparin Injection (Vial) 5,000 UNIT/ML VIAL 5000 UNIT SC (06:29)
[2018-06-28 06:43] LABS: Anion Gap 9 (5-15); BUN 14 mg/dL (7-18); BUN/Creat Ratio 6.8 RATIO (10-20); Calcium,Total 11.2 mg/dL (8.5-10.1); Chloride 117 mmol/L (98-107); Creatinine, Serum 2.07 mg/dL (0.70-1.30); EST Glomerular Filtration Rate 35 mL/min (>60); Est Glom Filt Rate - Afr Amer 43 mL/min (>60); Estimated Creatinine Clearance 38.09 ml/min; Glucose 78 mg/dL (74-106); Potassium 3.9 mmol/L (3.5-5.1); Sodium Level 148 mmol/L (136-145)
[2018-06-28 08:13] LABS: PROEL- A/G Ratio 1.2 (0.7-1.7); PROEL- Albumin 2.8 g/dL (2.9-4.4); PROEL- Alpha-1 Globulin 0.3 g/dL (0.0-0.4); PROEL- Alpha-2 Globulin 0.9 g/dL (0.4-1.0); PROEL- Beta Globulin 0.8 g/dL (0.7-1.3); PROEL- Gamma Globulin 0.3 g/dL (0.4-1.8); PROEL- Globulin, Total 2.3 g/dL (2.2-3.9); PROEL- TOTAL PROTEIN 5.1 g/dL (6.0-8.5)
[2018-06-28 08:43] VITALS: BP 119/73; PULSE 88; RESP 18; TEMP 36.1; O2SAT 98
[2018-06-28] MEDS: Gabapentin 300 MG Capsule PO ×3 (08:46→16:01)
[2018-06-28 09:31] LABS: Viscosity, Serum 1.4 rel.saline (1.6-1.9)
--- NOTE | 2018-06-28 11:19 | DCINST_ITS ---
- Discharge Diagnoses Current Active Problems: Current Active and Chronic Problems (Last Updated 06/25/18 @ 16:24 by Clarence Morales DO) DANIEL (acute kidney injury) (Acute) Hypercalcemia (Acute) You will use the following diet at home:: Regular Your food should be the consistency of: Regular Discharge Activity: Return to Normal Activity Weight Bearing Status: Weight bearing as tolerated Call your doctor if you observe: Fever of 101 or Higher, Shortness of breath, Dizziness, Fainting spells, Chest pain, Increased palpitations (irregular heartbeat), Uncontrolled pain Additional Instructions: Please see your family doctor in a week and have a blood work done at that time. Allergies/Adverse Reactions: Allergies hydrocodone Adverse Reaction (Verified 06/25/18 12:58) Other Medications to take at Discharge Gabapentin [Neurontin] 300 mg PO TID 06/25/18 Oxycodone HCl/Acetaminophen [Oxycodone-Acetaminophen 5-325] 2 tab PO Q4H PRN PRN 06/25/18 Potassium Chloride 20 meq PO DAILY 06/25/18 Primary Care Physician: Care Physician,No Primary [Primary Care Provider] - Please follow up with your Primary Care Physician in: 1 week. Test Results: Test results from this visit will be discussed in further detail at your follow- up appointment, if applicable. Please Follow Up With: Leonel Soto DO When: Tomorrow.
--- NOTE | 2018-06-28 14:03 | DS.PCM_ITS ---
Discharge Date and Diagnosis - Problem List Patient Problems: Active and Suspected Problems (Last Updated 06/25/18 @ 16:24 by Clarence Morales DO) DANIEL (acute kidney injury) (Acute) Hypercalcemia (Acute) Date of Admission: 06/25/18 Date of Discharge: 06/28/18 - Primary Discharge Diagnosis Active and Suspected Problems (Last Updated 06/25/18 @ 16:24 by Clarence Morales DO) #1 acute hypercalcemia, probably due to active multiple myeloma. #2 acute kidney injury. #3 hypokalemia. #4 multiple myeloma. Hospital Course and Treatment Operations: None Procedures: None Summary of Care Provided: Patient seen and examined on the day of discharge and appeared to be stable to be discharged home. He has no complaints. His vital signs are stable. The patient is a 57 year old M presented to the emergency room because of weakness for several weeks duration, had blood work done as outpatient that showed hypercalcemia and acute kidney injury. This patient had a history of multiple myeloma and he has been going under treatment as outpatient and has been following up with Dr. Soto as outpatient. Upon admission, his calcium was 12.8 mg/dL and his serum albumin was 3.6 which was normal and indicating true hypercalcemia. He was found to have serum creatinine of 2.49 mg/dL upon admission which is acute and he does not have a history of chronic kidney disease. He was treated with aggressive IV fluid for hydration as well as IV Lasix that was given 1 time. His serum PTH was normal at 33.7. Vitamin D 25- hydroxy was 8.6 which was normal. His LFT was normal. His potassium was low after admission because of hemodilution and it was replaced and corrected. His serum phosphorus and magnesium were normal. After discussion with Dr. Soto, the patient's oncologist, who recommended to do protein electrophoresis and immunoglobulin assay. With IV fluid therapy, patient's serum calcium and creatinine improved very slowly. His serum calcium came down from 12.8 down to 11.2 mg/dL. Serum creatinine came down from 2.48 down to 2.07 mg/dL. Patient remained asymptomatic, had good urine output. On the day of discharge, I discussed the case with Dr. Soto and we agreed to have patient go home today and follow-up with Dr. Soto tomorrow. Patient discharged home in a stable medical condition, aspirin discontinued because Dr. Soto mentioned that patient may need kidney biopsy, recommended to hydrate himself adequately, plan according to Dr. Matthews is to do PET scan in the near future looking for active multiple myeloma, plan to see Dr. Matthews tomorrow and follow-up with PCP in 1 week and recommended to have blood work done at that time. Patient Problems: Active and Suspected Problems (Last Updated 06/25/18 @ 16:24 by Clarence Morales DO) DANIEL (acute kidney injury) (Acute) Hypercalcemia (Acute) - Physical Exam General: Alert, Oriented x3, Cooperative, No apparent distress HEENT: Atraumatic, PERRLA, EOMI, Normocephalic Oral: Moist Mucosa, No Gingival or Mucosal Lesions/ Ulcerations Neck: Supple, No JVD, Negative Carotid Bruits, Trachea Midline, Thyroid Normal Size and Texture Lungs: Clear to auscultation, Normal air movement, No rhonchi, No wheeze, No rales Cardiovascular: Regular rate, Regular Rhythm, Normal S1, Normal S2, No murmurs Abdomen: Bowel Sounds Present, Soft, Non Tender, Non-Distended, No Hepato- splenomegaly Extremities: No clubbing, No cyanosis, No edema Skin: No rashes, No breakdown Lymphatic: No Cervical, Supraclavicular, or Inguinal Adenopathy Neurological: Cranial nerves II-XII grossly intact, Neuro grossly intact Psych/Mental Status: Normal Affect, Appropriate, Alert and oriented to time, place, person, mood and affect Vital Signs Temp Pulse Resp BP Pulse Ox 97.0 F L 88 18 119/73 98 06/28/18 08:43 06/28/18 08:43 06/28/18 08:43 06/28/18 08:43 06/28/18 08:43 Oxygen Delivery Method Room Air Weight: 167 lb 1.766 oz Body Mass Index (BMI) 25.4 Intake and Output for Last 24 Hours 06/26/18 06/27/18 06/28/18 23:59 23:59 23:59 Intake Total 3008 / 3008 4803 / 4803 3503 / 3503 Output Total 3000 / 3000 500 / 500 750 / 750 Balance 8 4303 / 4303 2753 / 2753 Laboratory Tests Past 24 Hrs 06/26/18 06/27/18 06/28/18 06:47 05:30 05:40 Diff Path Review Reviewed Serum Viscosity 1.4 L Sodium 148 H Potassium 3.9 Chloride 117 H Carbon Dioxide 22.0 Anion Gap 9 BUN 14 Creatinine 2.07 H Estim Creat Clear Calc 38.09 Est GFR (MDRD) Af Amer 43 L Est GFR (MDRD) Non-Af 35 L BUN/Creatinine Ratio 6.8 L Glucose 78 Calcium 11.2 H Total Protein (PEP) 5.1 L Albumin (PEP) 2.8 L Globulin (PEP) 2.3 Albumin/Globulin (PEP) 1.2 Kacka-2-Ufhvwvsjt 0.3 Icuvu-8-Xbjxkiupk 0.9 Beta Globulins 0.8 Gamma Globulins 0.3 L M-Abimael PEP Note Comment PEP Interpretation Comment Discharge Activity: Return to Normal Activity Weight Bearing Status: Weight bearing as tolerated Call your doctor if you observe: Fever of 101 or Higher, Shortness of breath, Dizziness, Fainting spells, Chest pain, Increased palpitations (irregular heartbeat), Uncontrolled pain Home Medications: Medications to take at Discharge Gabapentin [Neurontin] 300 mg PO TID 06/25/18 Oxycodone HCl/Acetaminophen [Oxycodone-Acetaminophen 5-325] 2 tab PO Q4H PRN PRN 06/25/18 Potassium Chloride 20 meq PO DAILY 06/25/18 Primary Care Physician: Care Physician,No Primary [Primary Care Provider] - Please follow up with your Primary Care Physician in: 1 week. Please Follow Up With: Leonel Soto DO When: Tomorrow. Disposition: Home Minutes spent on discharge:: 32 Patient Condition:: Stable Medical Necessity - Tobacco Use Smoking Status: Never smoker Tobacco Use: Non-smoker Meaningful Use Info Meaningful Use Diagnoses (Choose all that apply): None applicable Code Visit Inpatient E&M: 97883 Disch Hosp
[2018-06-28 14:21] VITALS: BP 117/66; PULSE 88; RESP 18; TEMP 36.7; O2SAT 99
[2018-06-28 15:28] LABS: Vitamin D 1,25-Dihydroxy <5.0 pg/mL (19.9-79.3)
[2018-06-28 15:50] LABS: Eosinophil Ct. Urine No Eosinophils Seen % (.)
== END 2018-06-28 18:10 | disposition home or self-care (01) | DRG 683 ==
LOC: ED 15:02 → MS3 16:07
PROVIDERS: Emergency Provider Emergency Medicine; Visit Provider Hospitalist
DX: N17.9 Acute kidney failure, unspecified (principal); C90.00 Multiple myeloma not having achieved remission; E83.52 Hypercalcemia; G62.9 Polyneuropathy, unspecified; E87.6 Hypokalemia; Z79.899 Other long term (current) drug therapy
CPT/HCPCS: 36415; 80048; 80053; 81001; 82306; 82330; 82570; 82652; 83735; 83970; 84100; 84156; 84165; 84300; 85025; 85810; 87205; 93005; 97162; 97165; 97802; 99281; J7030; A4216; J1940

== ENCOUNTER 2018-08-18 09:52 | Outpatient (CLI) | payer MEDICARE, MEDICAID, SELFPAY ==
[2018-06-25 16:36] VITALS: BMI 25.4
[2018-08-18] VITALS (10 sets, daily range): BP systolic 91–128; BP diastolic 59–85; PULSE 69–83; RESP 16–18; TEMP 36.4–36.9; O2SAT 98–100; BMI 25.2
[2018-08-18] MEDS: 0.9% NaCl Peripheral Flush Adult/Peds IV (12:21)
== END 2018-08-18 17:11 | disposition home or self-care (01) ==
LOC: MEDOUTP 09:53 → MS2 10:03
PROVIDERS: Referring Provider Internal Medicine Hematology & Oncology; Visit Provider Internal Medicine Hematology & Oncology
DX: Z51.89 Encounter for other specified aftercare (principal); D64.9 Anemia, unspecified; Z51.81 Encounter for therapeutic drug level monitoring
CPT/HCPCS: 36430; 86850; 86900; J7040; P9016; A4216

== ENCOUNTER → 2020-11-11 09:06 | Outpatient (CLI) | payer MEDICARE, SELFPAY ==
[2018-08-18 10:28] VITALS: BMI 25.2
[2020-11-11 09:27] VITALS: BP 146/67; PULSE 84; RESP 16; TEMP 36.8; O2SAT 96; BMI 26.6
== END ==
PROVIDERS: PCP Family Medicine; Referring Provider Internal Medicine Hematology & Oncology; Visit Provider Internal Medicine Hematology & Oncology
DX: C90.00 Multiple myeloma not having achieved remission (principal)
CPT/HCPCS: 36569

== ENCOUNTER 2021-03-01 12:57 | Emergency (ER) | payer MEDICARE, SELFPAY ==
[2021-03-01] VITALS (16 sets, daily range): BP systolic 96–118; BP diastolic 65–93; PULSE 85–110; RESP 18–22; TEMP 36.4–36.9; O2SAT 95–100; BMI 26.6
--- NOTE | 2021-03-01 13:25 | EX.ED.DYSGE1 ---
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 Patient reportedly is being treated for multiple myeloma. He had outpatient labs that showed platelet count was undetectable. [facility] hematology was unable to get platelets from [facility] in time for them to be given at the transfusion center. He was sent in for admission and transfusion of 2 units of platelets. Patient reportedly just got Neulasta. Dr. Soto did not feel that the patient needed a RBC transfusion.. [facility] Medical History Multiple myeloma Home Medications gabapentin 300 mg PO TID 06/25/18 [History Last Taken 06/24/18] oxycodone-acetaminophen 2 tab PO Q4H PRN PRN 06/25/18 [History Last Taken 06/24/18] potassium chloride 20 meq PO DAILY 06/25/18 [History Last Taken 06/24/18] dexamethasone 4 mg PO BID 11/11/20 [History Last Taken Unknown] Allergy/AdvReac Type Severity Reaction Status Date / Time hydrocodone AdvReac Other Verified 03/01/21 13:02 Social History Smoking Status: Never smoker ROS ROS ED Constitutional Constitutional ED: Denies chills or fever(s) Eyes Eyes: Denies change in vision ENT ENT ED: Denies sore throat Cardiovascular Cardiovascular: Denies chest pain Respiratory/Chest Respiratory/Chest: Denies cough or dyspnea Gastrointestinal Gastrointestinal: Denies abdominal pain or nausea Genitourinary Genitourinary ED: Denies dysuria Musculoskeletal Musculoskeletal: Denies back pain Integumentary Denies rash Neurologic Neurologic: Denies headache(s) Allergic/Immunologic Allergic/Immunologic ED: Denies urticaria EXAM Physical Exam Const Vital Signs: 03/01/21 12:58 Temperature 97.5 F L Temperature Source Temporal Pulse Rate 95 Respiratory Rate 18 Blood Pressure 99/74 Blood Pressure Mean 82 Pulse Ox 99 Oxygen Delivery Method Nasal Cannula Oxygen Flow Rate (L/min) 3 Positive well nourished and well developed General Appearance ED: well developed HEENT Reports normocephalic and head/scalp atraumatic Eyes PERRL and EOMs intact bilaterally Neck supple Chest Wall inspection of chest normal and palpation of chest normal Resp normal respiratory effort and clear to auscultation bilaterally Cardio regular rate and regular rhythm GI normal to inspection, nondistended, normoactive bowel sounds and non-tender Palpation: soft Extremity normal to inspection Neuro oriented x3 Sensorium / Orientation: alert Psych mental status grossly normal Skin no rashes or lesions noted MDM MDM MDM Narrative Medical decision making narrative: Patient was sent over from Dr. Soto's office. Fax does later come through showing CBC from this morning indicating platelet count less than 2. 2 units of platelets have been ordered. Unfortunately, we do have to get them from [facility] as well. This order has been initiated. Patient will be signed out to oncoming physician for final disposition pending transfusion of platelets. Discharge Plan Triage Chief Complaint: Abn Labs ED Provider: Nimisha Peterson Dx/Rx/DC Orders Clinical Impression: Thrombocytopenia Instructions: Thrombocytopenia Prescriptions: No Action oxycodone-acetaminophen 1 EACH tablet 2 tab PO Q4H PRN PRN (Reason: Pain) RF: 0 potassium chloride 20 MEQ tablet,ER particles/crystals 20 meq PO DAILY RF: 0 gabapentin 300 MG capsule 300 mg PO TID RF: 0 dexamethasone 4 mg tablet 4 mg PO BID RF: 0 Primary Care Provider: Gerard Sena Referrals: Gerard Sena MD [Primary Care Provider] - Leonel Soto DO [STAFF PHYSICIAN] - Keep Jerman appointment
[2021-03-01 14:31] LABS: Hematocrit 29.8 % (40-54); Hemoglobin 10.1 g/dL (13.0-16.5); Mean Corp Hgb Conc 33.9 g/dL (32-36); Mean Corpuscular Hgb 30.2 pg (27.0-32.0); Mean Corpuscular Volume 89.2 fL (80-94); POSITIVE COUNT YES; POSITIVE DIFFERENTIAL YES; POSITIVE MORPHOLOGY YES; RBC Distribution Width CV 16.3 % (11.6-14.6); RBC Distribution Width SD 53.8 fl (35.1-43.9); Red Blood Count 3.34 M/mm3 (4.6-6.2)
[2021-03-01 14:41] LABS: NRBC Flagged by Analyzer 0 % (0-5)
[2021-03-01 14:44] LABS: Differential Indicated SCAN CRITERIA MET
[2021-03-01 15:11] LABS: Platelet Estimate MKD DEC (ADEQ)
--- NOTE | 2021-03-01 18:21 | ED.RN ---
CALLED BLOOD BANK ON STATUS OF PLATELETS. BLOOD BANK STILL HAS NOT RECEIVED PLATELETS, UNSURE OF ESTIMATED ARRIVAL.
[2021-03-02 13:01] LABS: Pathologist Review Reviewed
== END 2021-03-01 22:49 | disposition home or self-care (01) ==
PROVIDERS: Emergency Provider Emergency Medicine; PCP Family Medicine
DX: D69.6 Thrombocytopenia, unspecified (principal); C90.00 Multiple myeloma not having achieved remission; Z79.52 Long term (current) use of systemic steroids
CPT/HCPCS: 85025; 86900; 86901; 86965; 99284; J7030; P9035; A4216

== ENCOUNTER → 2021-03-03 11:32 | Outpatient (CLI) | payer MEDICARE, SELFPAY ==
[2021-03-03 11:47] VITALS: BP 120/85; PULSE 96; RESP 16; TEMP 36.2; O2SAT 100; BMI 25.8
[2021-03-03] MEDS: 0.9% NaCl VAD Flush IV (12:10)
[2021-03-03 12:33] VITALS: BP 101/74; PULSE 95; RESP 16; TEMP 36.2; O2SAT 100
[2021-03-03 12:57] VITALS: BP 107/72; PULSE 93; RESP 16; TEMP 36.4
[2021-03-03 13:03] VITALS: BP 107/72; PULSE 93; RESP 20; TEMP 36.4
== END ==
PROVIDERS: PCP Family Medicine; Referring Provider Internal Medicine Hematology & Oncology; Visit Provider Internal Medicine Hematology & Oncology
DX: D61.810 Antineoplastic chemotherapy induced pancytopenia (principal); C90.00 Multiple myeloma not having achieved remission
CPT/HCPCS: 36430; 86900; 86901; 86965; J7040; P9035; A4216

== ENCOUNTER 2021-03-03 13:31 | Inpatient (IN) | payer MEDICARE, SELFPAY ==
[2021-03-03] VITALS (10 sets, daily range): BP systolic 93–121; BP diastolic 61–81; PULSE 56–107; RESP 14–20; TEMP 36.2–36.5; O2SAT 97–100; BMI 25.8; BMI 21.8
--- NOTE | 2021-03-03 14:05 | RAD_ITS ---
STUDY: X-RAY CHEST REASON FOR EXAM: Male, 60 years old. Confusion TECHNIQUE: Single AP portable view of the chest. COMPARISON: None. FINDINGS: Mild increased markings at the right lung base with blunting the right costophrenic angle. There is infiltrate should be ruled out. Normal size heart. Normal mediastinum and luke. Normal visualized pulmonary arteries. Normal visualized aortic arch and descending thoracic aorta. Normal visualized thoracic spine. Normal visualized ribs, clavicles, and shoulders. There is no demonstrated abnormality of the visualized soft tissue structures of the upper abdomen. RAD/Chest 1 View IMPRESSION: Findings suggestive of early right basilar infiltrate with blunting of the right costophrenic angle. Electronically Signed: Donavon Lopez MD at 14:42 EDT , Service support ,
--- NOTE | 2021-03-03 14:49 | EKG12_ITS ---
Test Reason : ABN LABS Blood Pressure : / mmHG Vent. Rate : 096 BPM Atrial Rate : 096 BPM P-R Int : 142 ms QRS Dur : 082 ms QT Int : 420 ms P-R-T Axes : 025 013 129 degrees QTc Int : 530 ms Normal sinus rhythm T wave abnormality, consider inferior ischemia T wave abnormality, consider anterolateral ischemia Prolonged QT Abnormal ECG Confirmed by LAST VALDES, BALDOMERO ([id number]), fashion editor ELI WARD ([id number]) on 03/04/2021 10:37:46 AM Referred By: ROXANN Confirmed By:BALDOMERO NI MD
--- NOTE | 2021-03-03 14:51 | EDS_ITS ---
HPI History of Present Illness Chief Complaint: Abn Labs Informant: patient and family Onset/Context/Timing Onset: Days Context: Gradual Onset Timing: Continuous Current Severity: Mild Maximum Severity: Mild Narrative Narrative: 60-year-old male brought in by his family for a sepsis work-up. Has a history of multiple myeloma had chemotherapy about a month ago. And has had chemotherapy multiple times over the last decade. He sees a local primary care physician and oncologist for the [facility]. He has had abnormal labs and has been hypotensive and he sent him in for further evaluation. Patient himself denies any complaints. Recently was transfused blood yesterday. Prior similar symptoms: No Recent Illness/Hospitalization: Yes [facility] Medical History Multiple myeloma Home Medications gabapentin 300 mg PO TID 06/25/18 [History Last Taken 06/24/18] oxycodone-acetaminophen 2 tab PO Q4H PRN PRN 06/25/18 [History Last Taken 06/24/18] potassium chloride 20 meq PO DAILY 06/25/18 [History Last Taken 06/24/18] acyclovir 200 mg PO BID 03/03/21 [History Last Taken Unknown] levofloxacin 500 mg PO DAILY 03/03/21 [History Last Taken Unknown] ondansetron 8 mg PO PRN PRN 03/03/21 [History Last Taken Unknown] oxycodone 10 mg PO Q6H PRN PRN 03/03/21 [History Last Taken Unknown] pantoprazole 40 mg PO DAILY 03/03/21 [History Last Taken Unknown] promethazine 25 mg PO PRN PRN 03/03/21 [History Last Taken Unknown] Allergy/AdvReac Type Severity Reaction Status Date / Time hydrocodone AdvReac Other Verified 03/03/21 13:31 Social History Smoking Status: Never smoker ROS ROS ED ROS Narrative Denies fever chills, shortness of breath, abdominal pain or headache. Review of Systems ROS Unobtainable: Denies due to encephalopathy Constitutional Constitutional ED: Denies chills or fever(s) Eyes Eyes: Denies change in vision ENT ENT ED: Denies ear pain or sore throat Cardiovascular Cardiovascular: Denies chest pain Respiratory/Chest Respiratory/Chest: Denies cough or dyspnea Gastrointestinal Gastrointestinal: Denies abdominal pain, diarrhea, nausea or vomiting Genitourinary Genitourinary ED: Denies dysuria Musculoskeletal Musculoskeletal: Denies myalgias Integumentary Denies rash Neurologic Neurologic: Denies headache(s) Psychiatric Psychiatric: Denies depression Endocrine Endocrinology: Denies polyuria Allergic/Immunologic Allergic/Immunologic ED: Denies urticaria EXAM Physical Exam Narrative Exam Narrative: 60-year-old male hypotensive. Confused per family. HEENT exam unremarkable. No signs of trauma. Neck nontender no lymphadenopathy no meningismus. Lungs clear to auscultation. Heart regular rhythm rate about 60 no murmur. Abdomen soft nontender. Moving all 4 extremities. Bruising throughout hi s left elbow area from recent blood draws. Neurologically is awake. He answers questions and follows commands. At times he is confused. No focal motor deficits. Const Vital Signs: 03/03/21 13:32 03/03/21 14:48 03/03/21 16:45 Temperature 97.1 F L Temperature Source Temporal Pulse Rate 56 L Respiratory Rate 19 H Respiratory Effort Normal Respiratory Pattern Normal Blood Pressure 93/73 Blood Pressure Mean 79 Pulse Ox 100 97 Oxygen Delivery Method Nasal Cannula Nasal Cannula Oxygen Flow Rate (L/min) 3 3 03/03/21 16:49 03/03/21 17:00 Temperature 97.2 F L 97.2 F L Temperature Source Oral Oral Pulse Rate 97 100 Respiratory Rate 20 H 15 Respiratory Effort Respiratory Pattern Blood Pressure 115/78 109/81 H Blood Pressure Mean 90 90 Pulse Ox 98 100 Oxygen Delivery Method Nasal Cannula Nasal Cannula Oxygen Flow Rate (L/min) 3 3 Positive well nourished and well developed; Negative for obese, cachectic, contractures or unkempt General Appearance ED: well developed and NAD; Negative for unkempt, cachectic or contractures Nutritional Appearance: Negative for cachectic or obese HEENT Reports moist mucous membranes Negative for trauma or tenderness Eyes PERRL and EOMs intact bilaterally Neck no lymphadenopathy, supple and no JVD General: Negative for tenderness Chest Wall inspection of chest normal and palpation of chest normal Resp normal respiratory effort and clear to auscultation bilaterally Auscultation: Negative for rales, rhonchi, wheezes or diminished lung sounds Cardio regular rate, regular rhythm, S1 normal heart sound, S2 normal heart sound and no murmurs GI normal to inspection, nondistended, normoactive bowel sounds, non-tender, non- distended and no masses Auscultation: normoactive bowel sounds Palpation: soft; Negative for tender or guarding Back/Spine no CVA tenderness General Back: Negative for CVA tenderness Cervical Spine: Negative for cervical spine tenderness Extremity normal to inspection General Extremety ED: Negative for edema or tenderness General Extremity: Negative for edema Neuro No oriented x3 and CN's II-XII intact bilaterally Sensorium / Orientation: alert; Negative for orientation impaired, lethargic or stuporous Motor Exam: strength 5/5 throughout Psych mental status grossly normal Appearance: Negative for unkempt Skin no rashes or lesions noted and no wounds Skin Narrative: Bruising left arm. MDM MDM MDM Narrative Medical decision making narrative: 60-year-old male on chemotherapy for multiple myeloma. Sent in for abnormal labs. Also hypotensive. Undergo a septic work-up. Most likely needs admitted. Neutropenic patient with right lower lobe pneumonia. Currently on chemotherapy for multiple myeloma. Will be started on IV antibiotics and admitted. Lab Data Attestation: I reviewed the patient's lab results. Lab results narrative: White count is 0. Hemoglobin of 8 he has a history of chronic anemia. Electrolytes show a gap of 6 normal creatinine. Liver enzymes unremarkable. Lactic acid of 1.6. PT INR and PTT are 18, 1 and 34. Chest x- ray shows a right lower lobe infiltrate. Patient's hemoglobin is lower than what has been most recently it was 10. Labs: Laboratory Results - last 24 hr 03/03/21 03/03/21 03/03/21 15:50 15:50 15:50 WBC 0.0 L* RBC 2.71 L Hgb 8.1 L Hct 25.4 L MCV 93.7 D MCH 29.9 MCHC 31.9 L D RDW Std Deviation 57.4 H RDW Coeff of Nicky 16.5 H Plt Count 14 L* MPV 10.1 Immature Gran % (Auto) 0.000 Neut % (Auto) 100.0 H Lymph % (Auto) 0.0 L [place] % (Auto) 0.0 Eos % (Auto) 0.0 Baso % (Auto) 0.0 Absolute Neuts (auto) 0.0 L Absolute Lymphs (auto) 0.00 L Nucleated RBC % 0 Differential Comment SCANNED Diff Path Review May foll PT INR APTT Sodium 139 Potassium 3.6 Chloride 105 Carbon Dioxide 28.0 Anion Gap 6 BUN 11 Creatinine 0.53 L Estim Creat Clear Calc 143.40 Est GFR (MDRD) Af Amer 205 Est GFR (MDRD) Non-Af 169 BUN/Creatinine Ratio 20.8 H Glucose 125 H Lactic Acid 1.6 Calcium 7.4 L Total Bilirubin 1.10 H AST 22 ALT 48 Alkaline Phosphatase 115 Troponin I High Sens 21 Total Protein 5.3 L Albumin 2.3 L Globulin 3.0 Albumin/Globulin Ratio 0.8 L 03/03/21 15:50 WBC RBC Hgb Hct MCV MCH MCHC RDW Std Deviation RDW Coeff of Nicky Plt Count MPV Immature Gran % (Auto) Neut % (Auto) Lymph % (Auto) [place] % (Auto) Eos % (Auto) Baso % (Auto) Absolute Neuts (auto) Absolute Lymphs (auto) Nucleated RBC % Differential Comment Diff Path Review PT 18.2 H INR 1.6 APTT 34.5 Sodium Potassium Chloride Carbon Dioxide Anion Gap BUN Creatinine Estim Creat Clear Calc Est GFR (MDRD) Af Amer Est GFR (MDRD) Non-Af BUN/Creatinine Ratio Glucose Lactic Acid Calcium Total Bilirubin AST ALT Alkaline Phosphatase Troponin I High Sens Total Protein Albumin Globulin Albumin/Globulin Ratio Radiography Chest X-Ray - ED: 1 View and Right Infiltrate Diagnostic Testing: Radiology Impression Chest X-Ray 03/03/21 14:05 IMPRESSION: Findings suggestive of early right basilar infiltrate with blunting of the right costophrenic angle. Electronically Signed: Donavon Lopez MD at 14:42 EDT , Service support , Brain CT 03/03/21 16:30 IMPRESSION: Chronic involutional changes of the brain. No acute hemorrhage Lytic and lucent calvarial lesions consistent with patient''s history of multiple myeloma Electronically Signed: Juan A Crawford MD at 17:08 EDT , Service support , Portable single view chest x-ray interpreted by myself and the radiologist shows right lower lobe infiltrates. Rhythm Strip Rhythm Strip: Sinus Rhythm Rate: 96 Ectopy: None EKG Initial EKG: Attestation: I personally reviewed and interpreted this EKG as follows: Interpretation: Sinus Rhythm and No Acute Injury Pattern Comments: Sinus rhythm. . Inverted T waves in V2 V3 V4 V5 and 6. This is changed from prior EKG from June 2018. Prior EKG tracings: available for review Prior: Changed Critical Care Time Critical Care Time: Yes Critical care time (excluding procedures): 30-74 minutes, Including time spent:, Discussing w/Patient &/or Family/Typesetting Machine Tender, Discussing w/Consultants, Arranging Admission or Transfer, Performing Direct Patient Care at Bedside and - (32 min) Discharge Plan Triage Chief Complaint: Abn Labs ED Provider: Marcin Kurtz Dx/Rx/DC Orders Clinical Impression: Multiple myeloma, Pneumonia, Sepsis, Acute hypotension Prescriptions: No Action oxycodone-acetaminophen 1 EACH tablet 2 tab PO Q4H PRN PRN (Reason: Pain) RF: 0 potassium chloride 20 MEQ tablet,ER particles/crystals 20 meq PO DAILY RF: 0 gabapentin 300 MG capsule 300 mg PO TID RF: 0 ondansetron 8 mg tablet,disintegrating 8 mg PO PRN PRN (Reason: Nausea) RF: 0 promethazine 25 mg tablet 25 mg PO PRN PRN (Reason: Nausea) RF: 0 acyclovir 200 mg capsule 200 mg PO BID RF: 0 levofloxacin 500 mg tablet 500 mg PO DAILY RF: 0 pantoprazole 40 mg tablet,delayed release (DR/EC) 40 mg PO DAILY RF: 0 oxycodone 10 mg tablet 10 mg PO Q6H PRN PRN (Reason: Pain) RF: 0 Primary Care Provider: Gerard Sena Referrals: Gerard Sena MD [Primary Care Provider] -
[2021-03-03 16:14] LABS: Hematocrit 25.4 % (40-54); Hemoglobin 8.1 g/dL (13.0-16.5); Mean Corp Hgb Conc 31.9 g/dL (32-36); Mean Corpuscular Hgb 29.9 pg (27.0-32.0); Mean Corpuscular Volume 93.7 fL (80-94); Mean Platelet Vol. 10.1 fl (6.2-12.0); NRBC Flagged by Analyzer 0 % (0-5); Neutrophil # 0.01 X10^3/uL (2.7-7.7); POSITIVE COUNT YES; POSITIVE DIFFERENTIAL YES; POSITIVE MORPHOLOGY YES; Platelet Count 14 K/mm3 (150-450); RBC Distribution Width CV 16.5 % (11.6-14.6); RBC Distribution Width SD 57.4 fl (35.1-43.9); Red Blood Count 2.71 M/mm3 (4.6-6.2)
[2021-03-03 16:21] LABS: ALB/GLOB Ratio 0.8 RATIO (0.9-2.4); AST(SGOT) 22 U/L (15-37); Alanine Aminotransfer ALT/SGPT 48 U/L (16-61); Albumin, Serum 2.3 g/dL (3.2-5.0); Alkaline Phosphatase 115 U/L (45-117); Anion Gap 6 (5-15); BUN 11 mg/dL (7-18); BUN/Creat Ratio 20.8 RATIO (10-20); Calcium,Total 7.4 mg/dL (8.5-10.1); Chloride 105 mmol/L (98-107); Creatinine, Serum 0.53 mg/dL (0.70-1.30); EST Glomerular Filtration Rate 169 mL/min (>60); Est Glom Filt Rate - Afr Amer 205 mL/min (>60); Glucose 125 mg/dL (74-106); Potassium 3.6 mmol/L (3.5-5.1); Protein, Total 5.3 g/dL (6.4-8.2); Sodium Level 139 mmol/L (136-145); Troponin-I HS 21 pg/mL (3.0-78.0)
[2021-03-03 16:25] LABS: International Normalized Ratio 1.6; Prothrombin Time (Protime)PT. 18.2 SECONDS (11.7-14.9)
[2021-03-03 16:27] LABS: Differential Indicated SCAN CRITERIA MET; Lactic Acid 1.6 mmol/L (0.4-1.9)
--- NOTE | 2021-03-03 16:30 | CT_ITS ---
STUDY: CT BRAIN WITHOUT CONTRAST REASON FOR EXAM: Male, 60 years old. Mental status change RADIATION DOSAGE (If Supplied By Facility): CTDIvol = ( 44.99 ) mGy, DLP = ( 762.36 ) mGycm TECHNIQUE: Transaxial CT imaging of the brain was performed without administration of intravenous contrast material. Individualized dose optimization techniques were used for this CT. COMPARISON: No relevant priors. FINDINGS: Normal soft tissue structures. Lytic lucencies consistent with patient''s history of multiple myeloma. There are erosive lesions through the calvarium in the left frontal and left parietal regions. Normal size ventricles and extra-axial spaces for the patient''s age. Normal white matter tracts of the cerebral hemispheres. Normal basal ganglia and thalami. Normal brainstem. Normal cerebellum. There is no intracranial hemorrhage. There are no findings of an acute ischemic infarction. Normal visualized paranasal sinuses. CT/Brain/Head without Contrast IMPRESSION: Chronic involutional changes of the brain. No acute hemorrhage Lytic and lucent calvarial lesions consistent with patient''s history of multiple myeloma Electronically Signed: Juan A Crawford MD at 17:08 EDT , Service support ,
[2021-03-03 16:43] LABS: Partial Thromboplast Time 34.5 Seconds (24.1-36.2)
[2021-03-03 16:49] LABS: Differential Comment SCANNED
[2021-03-03 17:52] LABS: Bacteria 0 SEEN /hpf (None Seen); Red Blood Cells-Urine 0 SEEN /hpf (0-5)
[2021-03-03 17:58] LABS: Color, Urine Amber (Yellow); Glucose, Dipstick 250 mg/dl (Normal); Ketone-Dipstick 5 mg/dl (Negative); Leukocyte Esterase-Dipstick 25 /ul (Negative); Nitrite-Dipstick Negative (Negative); Occult Blood-Urine 10 /ul (Negative); Protein-Dipstick 30 mg/dl (Negative); Urine Bilirubin Dipstick Negative (Negative); Urine Clarity Clear (Clear); Urine Urobilinogen Normal (Normal)
--- NOTE | 2021-03-03 18:02 | NURSING ---
PCU OLEGHE SEPSIS, PANCYTOPENIA, HYPOTENSION
[2021-03-03 18:12] LABS: Mucous, Urine 1+ /hpf (<or=2+); Squamous Epithelial Cells - UA 0-5 SEEN /hpf (0-5); White Blood Cells 0-5 SEEN /hpf (0-5)
--- NOTE | 2021-03-03 19:07 | HP.PCM_ITS ---
HPI - General General Date of Admission: 03/03/21 HPI Narrative EDGARDO CORREA, is a 60 M with a history of multiple myeloma who is on chemotherapy and who presents with mental status changes and abnormal labs. Presented to the oncology office with complaints of change in mental status and giving suspicion of sepsis patient was sent to the hospital. Here found to have profound neutropenia with white cell count of 0, low platelets of 14 and hemoglobin of about 8.1. Patient and spouse deny any headache or neck stiffness. But there has been confusion and disorientation and change in personality. Patient is essentially bedbound. [facility] Medical History Multiple myeloma Home Medications gabapentin 300 mg PO DAILY 06/25/18 [History Last Taken 03/03/21] oxycodone-acetaminophen 2 tab PO Q4H PRN PRN 06/25/18 [History Last Taken 03/02/21] potassium chloride 20 meq PO BID 06/25/18 [History Last Taken 03/03/21] Vitamin B-12 1 tab PO/SL DAILY 03/03/21 [History Last Taken 03/03/21] acyclovir 400 mg PO BID 03/03/21 [History Last Taken 03/03/21] levofloxacin 500 mg PO DAILY 03/03/21 [History Last Taken 03/03/21] ondansetron 8 mg PO PRN PRN 03/03/21 [History Last Taken 03/03/21] oxycodone 10 mg PO Q6H PRN PRN 03/03/21 [History Last Taken Unknown] pantoprazole 40 mg PO DAILY 03/03/21 [History Last Taken 03/03/21] Allergy/AdvReac Type Severity Reaction Status Date / Time hydrocodone AdvReac Other Verified 03/03/21 13:31 Social History Smoking Status: Never smoker ROS ROS Narrative Denies any chest pain or shortness of breath. Denies any nausea vomiting or diarrhea. Denies any lower extremity swelling. All other systems reviewed and essentially negative. Vital Signs Vital Signs Vital Signs: 03/03/21 13:32 03/03/21 14:48 03/03/21 16:45 Temperature 36.2 C L Temperature Source Temporal Pulse Rate 56 L Respiratory Rate 19 H Respiratory Effort Normal Respiratory Pattern Normal Blood Pressure 93/73 Blood Pressure Mean 79 Pulse Ox 100 97 Oxygen Delivery Method Nasal Cannula Nasal Cannula Oxygen Flow Rate (L/min) 3 3 03/03/21 16:49 03/03/21 17:00 03/03/21 18:00 Temperature 36.2 C L 36.2 C L 36.3 C L Temperature Source Oral Oral Oral Pulse Rate 97 100 100 Respiratory Rate 20 H 15 15 Respiratory Effort Respiratory Pattern Blood Pressure 115/78 109/81 H 104/78 Blood Pressure Mean 90 90 86 Pulse Ox 98 100 100 Oxygen Delivery Method Nasal Cannula Nasal Cannula Nasal Cannula Oxygen Flow Rate (L/min) 3 3 3 Weight Weight: 77.111 kg Body Mass Index (BMI) 25.8 Physical Exam Narrative General. Acutely and chronically ill looking, poorly kempt, depressed appearing, disoriented, lethargic, psychomotor retardation HEENT. Oral mucosa dry, conjunctiva pale Neck. Neck is supple without any stiffness or rigidity. Heart. First and second heart sounds heard. No murmurs. Lungs. Lungs clear to auscultation. Abdomen. Soft and full. Moves with respiration. No undue tenderness. Extremities. No pedal edema. Skin. Scattered and occasional petechiae and ecchymosis. 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 Cranial nerves II through XII grossly intact. Results Lab / Micro Data Result Diagrams: 03/03/21 15:50 03/03/21 15:50 Labs: Laboratory Results - last 24 hr 03/03/21 15:50: WBC 0.0 L*, RBC 2.71 L, Hgb 8.1 L, Hct 25.4 L, MCV 93.7 D, MCH 29.9, MCHC 31.9 L D, RDW Std Deviation 57.4 H, RDW Coeff of Nicky 16.5 H, Plt Count 14 L*, MPV 10.1, Immature Gran % (Auto) 0.000, Neut % (Auto) 100.0 H, Lymph % (Auto) 0.0 L, [place] % (Auto) 0.0, Eos % (Auto) 0.0, Baso % (Auto) 0.0, Absolute Neuts (auto) 0.0 L, Absolute Lymphs (auto) 0.00 L, Nucleated RBC % 0, Differential Comment SCANNED, Diff Path Review October foll 03/03/21 15:50: Sodium 139, Potassium 3.6, Chloride 105, Carbon Dioxide 28.0, Anion Gap 6, BUN 11, Creatinine 0.53 L, Estim Creat Clear Calc 143.40, Est GFR (MDRD) Af Amer 205, Est GFR (MDRD) Non-Af 169, BUN/Creatinine Ratio 20.8 H, Glucose 125 H, Calcium 7.4 L, Total Bilirubin 1.10 H, AST 22, ALT 48, Alkaline Phosphatase 115, Troponin I High Sens 21, Total Protein 5.3 L, Albumin 2.3 L, Globulin 3.0, Albumin/Globulin Ratio 0.8 L 03/03/21 15:50: Lactic Acid 1.6 03/03/21 15:50: PT 18.2 H, INR 1.6, APTT 34.5 03/03/21 17:47: Urine Color [place], Urine Clarity Clear, Urine pH 7.0, Ur Specific [place] 1.010, Urine Protein 30 H, Urine Glucose (UA) 250 H, Urine Ketones 5 H, Urine Occult Blood 10 H, Urine Nitrite Negative, Urine Bilirubin Negative, Urine Urobilinogen Normal, Ur Leukocyte Esterase 25 H, Urine RBC 0 SEEN, Urine WBC 0-5 SEEN, Ur Squamous Epith Cells 0-5 SEEN, Urine Bacteria 0 SEEN, Urine Mucus 1+ Micro: Microbiology 03/03/21 16:50 Nasal Secretion SARS-CoV-2 Antigen (Rapid) - Final Rhythm Strip Rhythm Strip: Sinus Rhythm Rate: 96 Ectopy: None Radiology Impression Chest X-Ray 03/03/21 14:05 IMPRESSION: Findings suggestive of early right basilar infiltrate with blunting of the right costophrenic angle. Electronically Signed: Donavon Lopez MD at 14:42 EDT , Service support , Brain CT 03/03/21 16:30 IMPRESSION: Chronic involutional changes of the brain. No acute hemorrhage Lytic and lucent calvarial lesions consistent with patient''s history of multiple myeloma Electronically Signed: Juan A Crawford MD at 17:08 EDT , Service support , Assessment & Plan Assessment/Plan (1) Neutropenic sepsis: PLAN: Patient has profound neutropenia with white cell count of 0. Will presume neutropenic sepsis giving mental status changes. Treat with IV antibiotics. Will start patient on Neulasta. Consult infectious disease. Neutropenic precautions. (2) Pancytopenia: PLAN: Pancytopenia with profound leukopenia and thrombocytopenia. We will start Neulasta as stated above, transfused with unit of platelets and transfused with packed red blood cells for hemoglobin less than 7. Consult hematology oncology. (3) Acute encephalopathy: PLAN: Given profound neutropenia will need to rule out meningitis or meningoencephalitis. Lumbar puncture contraindicated given thrombocytopenia. Will treat empirically with IV Rocephin, ampicillin and vancomycin. Continue oral acyclovir. Infectious disease consultation. (4) Multiple myeloma: PLAN: On chemotherapy for this. Consult oncology. Charges/Coding Visit Charges Inpatient E&M: 32660 Init Hosp L3
[2021-03-03] MEDS: 0.9% Normal Saline 1,000 ML 999 ML IV (19:30)
--- NOTE | 2021-03-03 20:41 | PCS.PANDOC ---
PANDEMIC DOCUMENTATION INITIATED: Date: 02/01/2021 Time: 190
[2021-03-03] MEDS: TBO-FILGRASTIM 480 MCG/0.8 ML ML SC (22:18)
[2021-03-03] MEDS: Acyclovir 200 MG Capsule 400 MG PO (22:24)
[2021-03-04] VITALS (16 sets, daily range): BP systolic 100–130; BP diastolic 73–99; PULSE 98–110; RESP 18–20; TEMP 36.3–36.9; O2SAT 97–100
--- NOTE | 2021-03-04 01:30 | PCM.RX.CS ---
Consult Pharmacy has been consulted to manage selected antiobiotic: Vancomycin Type of Consult: New start Suspected Infection: Sepsis Prior Doses of Antibiotics Received/Current Regimen: Medications Vancomycin HCl 750 mg/ Sodium (Chloride) 265 mls @ 250 mls/hr IV Q8H ELIAS Discontinued Medications Vancomycin HCl 1,250 mg/ (Sodium Chloride) 275 mls @ 167 mls/hr IV X1 ONE Stop: 03/03/21 21:38 Last Admin: 03/04/21 00:25 Dose: Infused Labs: Sodium 139 mmol/L (136-145) 03/03/21 15:50 Potassium 3.6 mmol/L (3.5-5.1) 03/03/21 15:50 Chloride 105 mmol/L (98-107) 03/03/21 15:50 Carbon Dioxide 28.0 mmol/L (21.0-32.0) 03/03/21 15:50 Anion Gap 6 (5-15) 03/03/21 15:50 BUN 11 mg/dL (7-18) 03/03/21 15:50 Creatinine 0.53 mg/dL (0.70-1.30) L 03/03/21 15:50 Est GFR (MDRD) Af Amer 205 mL/min (>60) 03/03/21 15:50 Est GFR (MDRD) Non-Af 169 mL/min (>60) 03/03/21 15:50 BUN/Creatinine Ratio 20.8 RATIO (10-20) H 03/03/21 15:50 Glucose 125 mg/dL (74-106) H 03/03/21 15:50 Microbiology: Microbiology 03/03/21 16:50 Nasal Secretion SARS-CoV-2 Antigen (Rapid) - Final Weight used for dosin.1 kg Estimated Creatinine Clearance: 143 Goal Trough: 15-20 mcg/mL Pharmacy Plan for Drug Dosing: Pharmacy Service will continue to monitor and adjust dosing as required. Follow-Up Labs: Trough Vancomycin Labs to be done on [date and time ordered]: 03/04/21 @2200
[2021-03-04] MEDS: 0.9% Saline Lock 10 ML Syringe IV (07:07)
[2021-03-04 07:25] LABS: Hematocrit 26.1 % (40-54); Hemoglobin 8.5 g/dL (13.0-16.5); Mean Corp Hgb Conc 32.6 g/dL (32-36); Mean Corpuscular Hgb 30.1 pg (27.0-32.0); Mean Corpuscular Volume 92.6 fL (80-94); Mean Platelet Vol. 9.4 fl (6.2-12.0); NRBC Flagged by Analyzer 0 % (0-5); Neutrophil # 0.01 X10^3/uL (2.7-7.7); POSITIVE COUNT YES; POSITIVE DIFFERENTIAL YES; POSITIVE MORPHOLOGY YES; RBC Distribution Width CV 16.4 % (11.6-14.6); Red Blood Count 2.82 M/mm3 (4.6-6.2)
[2021-03-04 07:30] LABS: Differential Indicated SCAN CRITERIA MET
[2021-03-04 07:33] LABS: Platelet Count 18 K/mm3 (150-450)
[2021-03-04 07:40] LABS: ALB/GLOB Ratio 0.7 RATIO (0.9-2.4); AST(SGOT) 25 U/L (15-37); Alanine Aminotransfer ALT/SGPT 45 U/L (16-61); Albumin, Serum 2.2 g/dL (3.2-5.0); Alkaline Phosphatase 128 U/L (45-117); Anion Gap 8 (5-15); BUN 7 mg/dL (7-18); BUN/Creat Ratio 20.8 RATIO (10-20); Calcium,Total 7.3 mg/dL (8.5-10.1); Chloride 105 mmol/L (98-107); Creatinine, Serum 0.34 mg/dL (0.70-1.30); EST Glomerular Filtration Rate 284 mL/min (>60); Est Glom Filt Rate - Afr Amer 343 mL/min (>60); Estimated Creatinine Clearance 212.75 ml/min; Globulin 3.1 g/dL (2.2-4.2); Glucose 110 mg/dL (74-106); Magnesium 1.8 mg/dL (1.6-2.6); Phosphorus 1.9 mg/dL (2.5-4.9); Potassium 2.9 mmol/L (3.5-5.1); Protein, Total 5.3 g/dL (6.4-8.2); Sodium Level 140 mmol/L (136-145)
[2021-03-04 08:12] LABS: Platelet Estimate MKD DEC (ADEQ)
[2021-03-04] MEDS: Acyclovir 200 MG Capsule 400 MG PO ×2 (10:23→21:24)
[2021-03-04] MEDS: Potassium Chloride Oral Tablet 20 MEQ PO ×2 (10:23→17:27)
[2021-03-04] MEDS: TBO-FILGRASTIM 480 MCG/0.8 ML ML SC (10:23)
[2021-03-04] MEDS: Gabapentin 300 MG Capsule PO (10:23)
--- NOTE | 2021-03-04 10:33 | WOUNDNOTE ---
wound photo: left buttock/ cleft
--- NOTE | 2021-03-04 10:43 | PCM.PROGNOTE ---
Documented by User: Shannon Stewart NP-C 03/04/21 11:17 Subjective Subjective Patient seen and examined. Patient states he feels mildly better today. Patient continues to complain of feeling disoriented and tired. Per nursing patient has runny mucoidal stools. Objective Data Objective Data Vital Signs: Vital Signs Temp Pulse Resp BP Pulse Ox 97.4 F L 104 H 18 109/74 97 03/04/21 10:20 03/04/21 10:20 03/04/21 10:20 03/04/21 10:20 03/04/21 10:20 Oxygen Flow Rate (L/min) 3 Oxygen Delivery Method Room Air Weight: 143 lb 8.335 oz Body Mass Index (BMI) 21.8 Intake & Output: Intake and Output for Last 24 Hours 03/02/21 03/03/21 03/04/21 23:59 23:59 23:59 Intake Total 1405 / 1505 1014 / 1014 Balance 1405 / 1505 1014 / 1014 Lab / Micro Data Result Diagrams: 03/04/21 07:15 03/04/21 07:15 Labs: Laboratory Results - last 24 hr 03/03/21 15:50: WBC 0.0 L*, RBC 2.71 L, Hgb 8.1 L, Hct 25.4 L, MCV 93.7 D, MCH 29.9, MCHC 31.9 L D, RDW Std Deviation 57.4 H, RDW Coeff of Nicky 16.5 H, Plt Count 14 L*, MPV 10.1, Immature Gran % (Auto) 0.000, Neut % (Auto) 100.0 H, Lymph % (Auto) 0.0 L, [place] % (Auto) 0.0, Eos % (Auto) 0.0, Baso % (Auto) 0.0, Absolute Neuts (auto) 0.0 L, Absolute Lymphs (auto) 0.00 L, Nucleated RBC % 0, Differential Comment SCANNED, Diff Path Review October03/03/21 15:50: Sodium 139, Potassium 3.6, Chloride 105, Carbon Dioxide 28.0, Anion Gap 6, BUN 11, Creatinine 0.53 L, Estim Creat Clear Calc 143.40, Est GFR (MDRD) Af Amer 205, Est GFR (MDRD) Non-Af 169, BUN/Creatinine Ratio 20.8 H, Glucose 125 H, Calcium 7.4 L, Total Bilirubin 1.10 H, AST 22, ALT 48, Alkaline Phosphatase 115, Troponin I High Sens 21, Total Protein 5.3 L, Albumin 2.3 L, Globulin 3.0, Albumin/Globulin Ratio 0.8 L 03/03/21 15:50: Lactic Acid 1.6 03/03/21 15:50: PT 18.2 H, INR 1.6, APTT 34.5 03/03/21 17:47: Urine Color Shannon, Urine Clarity Clear, Urine pH 7.0, Ur Specific [place] 1.010, Urine Protein 30 H, Urine Glucose (UA) 250 H, Urine Ketones 5 H, Urine Occult Blood 10 H, Urine Nitrite Negative, Urine Bilirubin Negative, Urine Urobilinogen Normal, Ur Leukocyte Esterase 25 H, Urine RBC 0 SEEN, Urine WBC 0-5 SEEN, Ur Squamous Epith Cells 0-5 SEEN, Urine Bacteria 0 SEEN, Urine Mucus 1+ 03/04/21 07:15: WBC 0.0 L*, RBC 2.82 L, Hgb 8.5 L, Hct 26.1 L, MCV 92.6, MCH 30.1, MCHC 32.6, RDW Std Deviation 56.0 H, RDW Coeff of Nicky 16.4 H, Plt Count 18 L*, MPV 9.4, Immature Gran % (Auto) 0.000, Neut % (Auto) 100.0 H, Lymph % (Auto) 0.0 L, [place] % (Auto) 0.0, Eos % (Auto) 0.0, Baso % (Auto) 0.0, Absolute Neuts (auto) 0.0 L, Absolute Lymphs (auto) 0.00 L, Nucleated RBC % 0, Differential Comment COMMENT, Diff Path Review October soumya, Platelet Estimate MKD 03/04/21 07:15: Sodium 140, Potassium 2.9 L, Chloride 105, Carbon Dioxide 27.0, Anion Gap 8, BUN 7, Creatinine 0.34 L, Estim Creat Clear Calc 212.75, Est GFR (MDRD) Af Amer 343, Est GFR (MDRD) Non-Af 284, BUN/Creatinine Ratio 20.8 H, Glucose 110 H, Calcium 7.3 L, Phosphorus 1.9 L, Magnesium 1.8, Total Bilirubin 1.10 H, AST 25, ALT 45, Alkaline Phosphatase 128 H, Total Protein 5.3 L, Albumin 2.2 L, Globulin 3.1, Albumin/Globulin Ratio 0.7 L Micro: Microbiology 03/03/21 16:50 Nasal Secretion SARS-CoV-2 Antigen (Rapid) - Final Radiography Diagnostic Testing: Radiology Impression Chest X-Ray 03/03/21 14:05 IMPRESSION: Findings suggestive of early right basilar infiltrate with blunting of the right costophrenic angle. Electronically Signed: Donavon Lopez MD at 14:42 EDT , Service support , Brain CT 03/03/21 16:30 IMPRESSION: Chronic involutional changes of the brain. No acute hemorrhage Lytic and lucent calvarial lesions consistent with patient''s history of multiple myeloma Electronically Signed: Juan A Crawford MD at 17:08 EDT , Service support , Rhythm Strip Rhythm Strip: Sinus Rhythm Rate: 96 Ectopy: None Physical Exam Const alert and no apparent distress General Appearance: cooperative Orientation / Consciousness: oriented to person and oriented to place HEENT normocephalic and head/scalp atraumatic Eyes conjunctivae normal and no scleral icterus Neck supple and no JVD General: trachea midline Resp normal respiratory effort Auscultation: diminished lung sounds Cardio regular rate, regular rhythm, S1 normal heart sound and S2 normal heart sound Peripheral Pulses: pulses 2+ throughout GI normal to inspection, nondistended, normoactive bowel sounds, soft to palpation and non-tender Extremity normal capillary refill and no clubbing, cyanosis or edema General Extremity: no tenderness to palpation of joints or extremities Skin General Skin Exam: no breakdown and turgor normal Lesions: no lesions Rashes: no rashes Neuro no focal motor deficits and no sensory deficits noted Speech: speech normal Motor Exam: general weakness Psych cooperative and speech normal Thought Process: confused Assessment & Plan Assessment/Plan (1) Multiple myeloma: (2) Neutropenic sepsis: PLAN: 1. Neutropenic sepsis -Patient continues to have neutropenia with white cell count of 0 -Neutropenic precautions ordered -Continue Neulasta -Continue antibiotic therapy -Infectious disease consulted 2. Pancytopenia -Will continue Neulasta -Consult hematology/oncology -Platelets improved from 14-18 today, trend CBC -Patient received 1 unit platelets 03/03/2021 we will transfuse second unit today. 3. Acute encephalopathy -Due to thrombocytopenia we will continue to treat empirically with Rocephin, ampicillin, vancomycin due to inability to perform lumbar puncture. -Patient mental status has improved, while patient continues to be confused. 4. Multiple myeloma -Patient currently undergoing chemotherapy -Consult oncology 5. Diarrhea -Possibly secondary to antibiotics however will obtain enteric panel and C. difficile DVT prophylaxis-SCDs This patient was seen by Shannon Stewart NP-C under the supervision of Dr. Morales Documented by User: Dr. Clarence Morales, DO 03/04/21 15:29 Subjective Subjective Feels well. Objective Data Lab / Micro Data Result Diagrams: 03/04/21 07:15 03/04/21 07:15 Physical Exam Const Constitutional Narrative: disheveled. Eyes Eyes Narrative: no icterus Neck Neck Narrative: no meningismus Resp normal respiratory effort, normal air movement and clear to auscultation bilaterally Cardio regular rate, regular rhythm, S1 normal heart sound and S2 normal heart sound GI normal to inspection, nondistended, normoactive bowel sounds, non-tender and non-distended Assessment & Plan Assessment/Plan (1) Neutropenic sepsis: (2) Pancytopenia: PLAN: 1. Neutropenic fever He related with a right lower lobe infiltrate. Doubt any meningitis but patient is on ampicillin, ceftriaxone and vancomycin. Follow-up cultures Infectious disease on consultation 2. Pancytopenia Started on Neulasta Monitor labs Charges/Coding Visit Charges Inpatient E&M: 36624 Subs Hosp L2
--- NOTE | 2021-03-04 11:45 | CASEMGMT ---
REINA FONSECA Face to Face with patient for initial transition planning/care coordination assessment. REINA FONSECA introduced self and role at [facility]. Patient lying in bed, alert and oriented, at bedside. , Alexa, willing to participate in assessment and is able to answer all questions appropriately. Care providers, pharmacy, and demographics verified. Patient wishes to discharge home with HHC. Per , Dr. Soto's office was working on setting HHC up with [facility]. states she has no further needs or concerns at this time. CM to follow for discharge planning needs that may arise. PCP: Nathen Specialists: Brittany, oncologist Preferred Pharmacy: [facility] Insurance: [facility] Prescription Benefit: yes Living Will/HPOA: yes, Alexa Jimenez LNOK: Living Arrangements: Patient lives with in a single story home with ramp. assists patient with care. Transportation: DME/HHC: Patient has shower chair, BSC, walker, wheelchair, oxygen 3 lpm through [facility] with portability. Patient has been to [facility] previous. REINA FONSECA called [facility] and referral sent for review. would also like hospital bed with low air loss mattress. CM will assist with hospital bed and HHC. Disposition Plan: Patient to discharge home with HHC, family support, and follow-up plans in place. Eliane HARMAN, RN, CM
[2021-03-04 13:13] LABS: Pathologist Review Reviewed
[2021-03-04] MEDS: Ensure Clear 120 ML Liquid PO ×2 (13:49→17:27)
--- NOTE | 2021-03-04 15:32 | CASEMGMT ---
Call from Haydee at [facility] and she states they have not decided on acceptance yet and this RN CM to f/u with her tomorrow. SStjoão HUANG CM
--- NOTE | 2021-03-04 16:48 | PCM.CONS.GEN ---
Assessment & Plan Assessment/Plan (1) Multiple myeloma: (2) Acute encephalopathy: PLAN: Encephalopathy and pancytopenia. Covid rapid neg, unvaccinated. Mental status slightly improved. Wbc is 0. Oncology consulted. On empiric bacterial meningitis coverage with vanc/amp/ceftriaxone. Doubt meningitis due to clinical stability, will stop ampicillin. Will follow, thank you (3) Pancytopenia: HPI Consult Data Date of Consult: 03/04/21 HPI Narrative HPI Narrative: EDGARDO CORREA, is a 60 M with multiple myeloma, on chemo, presented with acute onset altered mental status, pancytopenia. No fever, no focal complaints. Most of history obtained from family at bedside. No neck pain. No abd pain, no oral pain. No dysuria. No cough or SOB. Unvaccinated for covid. Came to ED, covid neg, cxs sent, admitted on vanc/amp/ceftriaxone. Slightly better mental status this AM. Full ROS performed and neg except as noted above. [facility] Medical History History of renal dialysis Kidney disease Multiple myeloma Non-smoker On home oxygen therapy Tumor of lung Home Medications gabapentin 300 mg PO DAILY 06/25/18 [History Last Taken 03/03/21] oxycodone-acetaminophen 2 tab PO Q4H PRN PRN 06/25/18 [History Last Taken 03/02/21] potassium chloride 20 meq PO BID 06/25/18 [History Last Taken 03/03/21] Vitamin B-12 1 tab PO/SL DAILY 03/03/21 [History Last Taken 03/03/21] acyclovir 400 mg PO BID 03/03/21 [History Last Taken 03/03/21] levofloxacin 500 mg PO DAILY 03/03/21 [History Last Taken 03/03/21] ondansetron 8 mg PO PRN PRN 03/03/21 [History Last Taken 03/03/21] oxycodone 10 mg PO Q6H PRN PRN 03/03/21 [History Last Taken Unknown] pantoprazole 40 mg PO DAILY 03/03/21 [History Last Taken 03/03/21] Allergy/AdvReac Type Severity Reaction Status Date / Time hydrocodone AdvReac Other Verified 03/03/21 13:31 Lactose Intolerant AdvReac Diarrhea Uncoded 03/04/21 11:35 Social History Smoking Status: Never smoker Physical Exam Const Constitutional Narrative: oriented x1 General Appearance: lethargic HEENT head/scalp atraumatic Eyes PERRL and EOMs intact bilaterally Neck supple and No nodes Resp normal air movement and clear to auscultation bilaterally Cardio regular rate and regular rhythm GI normal to inspection, nondistended, normoactive bowel sounds Extremity no clubbing, cyanosis or edema Skin no rashes or lesions noted Neuro CN's II-XII intact bilaterally Lab / Micro Data Result Diagrams: 03/04/21 07:15 03/04/21 07:15 Labs: Laboratory Results - last 24 hr 03/03/21 15:50: WBC 0.0 L*, RBC 2.71 L, Hgb 8.1 L, Hct 25.4 L, MCV 93.7 D, MCH 29.9, MCHC 31.9 L D, RDW Std Deviation 57.4 H, RDW Coeff of Nicky 16.5 H, Plt Count 14 L*, MPV 10.1, Immature Gran % (Auto) 0.000, Neut % (Auto) 100.0 H, Lymph % (Auto) 0.0 L, [place] % (Auto) 0.0, Eos % (Auto) 0.0, Baso % (Auto) 0.0, Absolute Neuts (auto) 0.0 L, Absolute Lymphs (auto) 0.00 L, Nucleated RBC % 0, Differential Comment SCANNED, Diff Path Review Reviewed 03/03/21 17:47: Urine Color Shannon, Urine Clarity Clear, Urine pH 7.0, Ur Specific [place] 1.010, Urine Protein 30 H, Urine Glucose (UA) 250 H, Urine Ketones 5 H, Urine Occult Blood 10 H, Urine Nitrite Negative, Urine Bilirubin Negative, Urine Urobilinogen Normal, Ur Leukocyte Esterase 25 H, Urine RBC 0 SEEN, Urine WBC 0-5 SEEN, Ur Squamous Epith Cells 0-5 SEEN, Urine Bacteria 0 SEEN, Urine Mucus 1+ 03/04/21 07:15: WBC 0.0 L*, RBC 2.82 L, Hgb 8.5 L, Hct 26.1 L, MCV 92.6, MCH 30.1, MCHC 32.6, RDW Std Deviation 56.0 H, RDW Coeff of Nicky 16.4 H, Plt Count 18 L*, MPV 9.4, Immature Gran % (Auto) 0.000, Neut % (Auto) 100.0 H, Lymph % (Auto) 0.0 L, Will % (Auto) 0.0, Eos % (Auto) 0.0, Baso % (Auto) 0.0, Absolute Neuts (auto) 0.0 L, Absolute Lymphs (auto) 0.00 L, Nucleated RBC % 0, Differential Comment COMMENT, Diff Path Review October foll, Platelet Estimate MKD 03/04/21 07:15: Sodium 140, Potassium 2.9 L, Chloride 105, Carbon Dioxide 27.0, Anion Gap 8, BUN 7, Creatinine 0.34 L, Estim Creat Clear Calc 212.75, Est GFR (MDRD) Af Amer 343, Est GFR (MDRD) Non-Af 284, BUN/Creatinine Ratio 20.8 H, Glucose 110 H, Calcium 7.3 L, Phosphorus 1.9 L, Magnesium 1.8, Total Bilirubin 1.10 H, AST 25, ALT 45, Alkaline Phosphatase 128 H, Total Protein 5.3 L, Albumin 2.2 L, Globulin 3.1, Albumin/Globulin Ratio 0.7 L Micro: Microbiology 03/04/21 09:02 Stool Enteric Bacteriology - Final 03/04/21 09:02 Stool C. difficile DNA Amplification - Final 03/03/21 17:47 Urine, Clean Catch Urine Culture - Preliminary Coag Negative Staph 03/03/21 16:50 Nasal Secretion SARS-CoV-2 Antigen (Rapid) - Final Rhythm Strip Rhythm Strip: Sinus Rhythm Rate: 96 Ectopy: None Radiology Impression Brain CT 03/03/21 16:30 IMPRESSION: Chronic involutional changes of the brain. No acute hemorrhage Lytic and lucent calvarial lesions consistent with patient''s history of multiple myeloma Electronically Signed: Juan A Crawford MD at 17:08 EDT , Service support ,
--- NOTE | 2021-03-04 17:13 | PCM.CONS.B ---
Consult Date of Consult: 03/04/[address] Soto with recurrent multiple myeloma presented with acute mental status change and pancytopenia secondary to recent chemotherapy treatment. My final recommendation will be communicated to the nursing team and by electronic medical records. HPI Carol CORREA, is a 60 M with a history of multiple myeloma who is on first cycle of VD-PACE salvage chemotherapy for refractory multiple myeloma who presents with mental status changes and pancytopenia. Presented to the oncology office with complaints of change in mental status and giving suspicion of sepsis patient was sent to the hospital yesterday. Here found to have profound neutropenia with white cell count of 0,0 low platelets of 14 and hemoglobin of about 8.1. Patient and spouse deny any headache or neck stiffness. But there has been confusion and disorientation and change in personality as yesterday. Patient is essentially bedbound. He received platelet transfusion and and his CT brain on admission showed no bleed. He was cultured for sepsis and started empiric antibiotic this morning. ID was consulted. Patient appeared to be confused but respond appropriately to questions. He denied bleeding, bruising, hemoptysis, hematemesis, blood per rectum or melena. He also denied coughing, diarrhea, nausea or vomiting. He has no headaches or any seizure activity. Covid test was negative [facility] Medical History Multiple myeloma Home Medications gabapentin 300 mg PO DAILY 06/25/18 [History Last Taken 03/03/21] oxycodone-acetaminophen 2 tab PO Q4H PRN PRN 06/25/18 [History Last Taken 03/02/21] potassium chloride 20 meq PO BID 06/25/18 [History Last Taken 03/03/21] Vitamin B-12 1 tab PO/SL DAILY 03/03/21 [History Last Taken 03/03/21] acyclovir 400 mg PO BID 03/03/21 [History Last Taken 03/03/21] levofloxacin 500 mg PO DAILY 03/03/21 [History Last Taken 03/03/21] ondansetron 8 mg PO PRN PRN 03/03/21 [History Last Taken 03/03/21] oxycodone 10 mg PO Q6H PRN PRN 03/03/21 [History Last Taken Unknown] pantoprazole 40 mg PO DAILY 03/03/21 [History Last Taken 03/03/21] Allergy/AdvReac Type Severity Reaction Status Date / Time hydrocodone AdvReac Other Verified 03/03/21 13:31 Social History Smoking Status: Never smoker ROS ROS Narrative Denies any chest pain or shortness of breath. Denies any nausea vomiting or diarrhea. Denies any lower extremity swelling. All other systems reviewed and essentially negative. Vital Signs Vital Signs Vital Signs: 03/03/21 13:32 03/03/21 14:48 03/03/21 16:45 Temperature 36.2 C L Temperature Source Temporal Pulse Rate 56 L Respiratory Rate 19 H Respiratory Effort Normal Respiratory Pattern Normal Blood Pressure 93/73 Blood Pressure Mean 79 Pulse Ox 100 97 Oxygen Delivery Method Nasal Cannula Nasal Cannula Oxygen Flow Rate (L/min) 3 3 03/03/21 16:49 03/03/21 17:00 03/03/21 18:00 Temperature 36.2 C L 36.2 C L 36.3 C L Temperature Source Oral Oral Oral Pulse Rate 97 100 100 Respiratory Rate 20 H 15 15 Respiratory Effort Respiratory Pattern Blood Pressure 115/78 109/81 H 104/78 Blood Pressure Mean 90 90 86 Pulse Ox 98 100 100 Oxygen Delivery Method Nasal Cannula Nasal Cannula Nasal Cannula Oxygen Flow Rate (L/min) 3 3 3 Weight Weight: 77.111 kg Body Mass Index (BMI) 25.8 Physical Exam General. Acutely and chronically ill looking, poorly kempt, depressed appearing, disoriented, psychomotor retardation HEENT. Oral mucosa dry, conjunctiva pale Neck. Neck is supple without any stiffness or rigidity. Heart. First and second heart sounds heard. No murmurs. Lungs. Lungs clear to auscultation. Abdomen. Soft and full. Moves with respiration. No undue tenderness. Extremities. No pedal edema. Skin. Scattered and occasional petechiae and ecchymosis. [employer] D[employer]ER. Confused and disoriented. Cranial nerves II through XII grossly intact. Results Lab / Micro Data Result Diagrams: 03/03/21 15:50 document embedded image 03/03/21 15:50 document embedded image Labs:Laboratory Results - last 24 hr 03/03/21 15:50: WBC 0.0 L*, RBC 2.71 L, Hgb 8.1 L, Hct 25.4 L, MCV 93.7 D, MCH 29.9, MCHC 31.9 L D, RDW Std Deviation 57.4 H, RDW Coeff of Nicky 16.5 H, Plt Count 14 L*, MPV 10.1, Immature Gran % (Auto) 0.000, Neut % (Auto) 100.0 H, Lymph % (Auto) 0.0 L, [place] % (Auto) 0.0, Eos % (Auto) 0.0, Baso % (Auto) 0.0, Absolute Neuts (auto) 0.0 L, Absolute Lymphs (auto) 0.00 L, Nucleated RBC % 0, Differential Comment SCANNED, Diff Path Review October foll 03/03/21 15:50: Sodium 139, Potassium 3.6, Chloride 105, Carbon Dioxide 28.0, Anion Gap 6, BUN 11, Creatinine 0.53 L, Estim Creat Clear Calc 143.40, Est GFR (MDRD) Af Amer 205, Est GFR (MDRD) Non-Af 169, BUN/Creatinine Ratio 20.8 H, Glucose 125 H, Calcium 7.4 L, Total Bilirubin 1.10 H, AST 22, ALT 48, Alkaline Phosphatase 115, Troponin I High Sens 21, Total Protein 5.3 L, Albumin 2.3 L, Globulin 3.0, Albumin/Globulin Ratio 0.8 L 03/03/21 15:50: Lactic Acid 1.6 03/03/21 15:50: PT 18.2 H, INR 1.6, APTT 34.5 03/03/21 17:47: Urine Color Shannon, Urine Clarity Clear, Urine pH 7.0, Ur Specific [place] 1.010, Urine Protein 30 H, Urine Glucose (UA) 250 H, Urine Ketones 5 H, Urine Occult Blood 10 H, Urine Nitrite Negative, Urine Bilirubin Negative, Urine Urobilinogen Normal, Ur Leukocyte Esterase 25 H, Urine RBC 0 SEEN, Urine WBC 0-5 SEEN, Ur Squamous Epith Cells 0-5 SEEN, Urine Bacteria 0 SEEN, Urine Mucus 1+ Micro:Microbiology 03/03/21 16:50 Nasal Secretion SARS-CoV-2 Antigen (Rapid) - Final Rhythm Strip Rhythm Strip: Sinus Rhythm Rate: 96 Ectopy: None Radiology Impression Chest X-Ray 03/03/21 14:05 IMPRESSION: Findings suggestive of early right basilar infiltrate with blunting of the right costophrenic angle. Electronically Signed: Donavon Lopez MD at 14:42 EDT , Service support , Brain CT 03/03/21 16:30 IMPRESSION: Chronic involutional changes of the brain. No acute hemorrhage Lytic and lucent calvarial lesions consistent with patient''s history of multiple myeloma Electronically Signed: Juan A Crawford MD at 17:08 EDT , Service support , Assessment & Plan Assessment/Plan Assessment & Plan Assessment/Plan (1) Multiple myeloma: PLAN: He had chemotherapy a week ago with severe pancytopenia probably secondary to multiple courses of treatment in the past. Plan: -Continue supportive care with blood transfusion; hemoglobin less than 7 gm/gl -Continue Neupogen 480mcg sq daily until neutropenia resolves (2) Thrombocytopenia: PLAN: Secondary to chemotherapy -No evidence of DIC or coagulopathy Plan: -Transfuse with pheresis platelet for platelet < 20,000 or evidence of bleeding (3) Acquired pancytopenia: PLAN: Secondary to chemotherapy Plan: -Continue supportive care (4) Neutropenia: PLAN: Possible sepsis on broad-spectrum antibiotics Plan: -Follow-up with ID and continue antibiotic therapy until neutropenia resolves (5) Acute encephalopathy: PLAN: Metabolic encephalopathy and possible sepsis -Possible delirium Plan: -Follow neuro exam and mental status check. -Agree with current medical management. -Replace potassium and phosphorus.
[2021-03-04 23:01] LABS: Vancomycin, Trough Level 24.6 ug/mL (5.0-15.0)
--- NOTE | 2021-03-04 23:45 | PCM.RX.CS ---
Consult Pharmacy has been consulted to manage selected antiobiotic: Vancomycin Type of Consult: Follow-up Suspected Infection: Sepsis Prior Doses of Antibiotics Received/Current Regimen: Medications Discontinued Medications Vancomycin HCl 750 mg/ Sodium (Chloride) 265 mls @ 250 mls/hr IV Q8H ELIAS Last Admin: 03/04/21 17:27 Dose: Infused Labs: Sodium 140 mmol/L (136-145) 03/04/21 07:15 Potassium 2.9 mmol/L (3.5-5.1) L 03/04/21 07:15 Chloride 105 mmol/L (98-107) 03/04/21 07:15 Carbon Dioxide 27.0 mmol/L (21.0-32.0) 03/04/21 07:15 Anion Gap 8 (5-15) 03/04/21 07:15 BUN 7 mg/dL (7-18) 03/04/21 07:15 Creatinine 0.34 mg/dL (0.70-1.30) L 03/04/21 07:15 Est GFR (MDRD) Af Amer 343 mL/min (>60) 03/04/21 07:15 Est GFR (MDRD) Non-Af 284 mL/min (>60) 03/04/21 07:15 BUN/Creatinine Ratio 20.8 RATIO (10-20) H 03/04/21 07:15 Glucose 110 mg/dL (74-106) H 03/04/21 07:15 Vancomycin Trough 24.6 ug/mL (5.0-15.0) H 03/04/21 22:22 Microbiology: Microbiology 03/04/21 09:02 Stool Enteric Bacteriology - Final 03/04/21 09:02 Stool C. difficile DNA Amplification - Final 03/03/21 17:47 Urine, Clean Catch Urine Culture - Preliminary Coag Negative Staph 03/03/21 16:50 Nasal Secretion SARS-CoV-2 Antigen (Rapid) - Final Weight used for dosin.1 kg Estimated Creatinine Clearance: 213 Goal Trough: 15-20 mcg/mL Pharmacy Plan for Drug Dosing: Vancomycin trough level drawn 6.75hrs post-dose came back high at 24.6. With improvement in renal function, if anything a low level would have been expected. The 750mg q8h order was cancelled. A random level will be drawn 0700 to determine further dosing. Pharmacy Service will continue to monitor and adjust dosing as required. Follow-Up Labs: Trough Vancomycin - random Labs to be done on [date and time ordered]: 03/05/21 @0700
[2021-03-05] VITALS (9 sets, daily range): BP systolic 91–127; BP diastolic 51–91; PULSE 106–132; RESP 18–20; TEMP 36.4–36.9; O2SAT 98–100
[2021-03-05 08:05] LABS: Hematocrit 26.9 % (40-54); Hemoglobin 8.7 g/dL (13.0-16.5); Mean Corp Hgb Conc 32.3 g/dL (32-36); Mean Corpuscular Hgb 29.6 pg (27.0-32.0); Mean Corpuscular Volume 91.5 fL (80-94); Mean Platelet Vol. 12.4 fl (6.2-12.0); NRBC Flagged by Analyzer 0 % (0-5); Neutrophil # 0.01 X10^3/uL (2.7-7.7); POSITIVE COUNT YES; POSITIVE DIFFERENTIAL YES; Platelet Count 22 K/mm3 (150-450); RBC Distribution Width CV 16.3 % (11.6-14.6); RBC Distribution Width SD 55.3 fl (35.1-43.9); Red Blood Count 2.94 M/mm3 (4.6-6.2)
[2021-03-05 08:09] LABS: Differential Indicated SCAN CRITERIA MET
[2021-03-05 08:20] LABS: ALB/GLOB Ratio 0.8 RATIO (0.9-2.4); AST(SGOT) 14 U/L (15-37); Alanine Aminotransfer ALT/SGPT 35 U/L (16-61); Albumin, Serum 2.4 g/dL (3.2-5.0); Alkaline Phosphatase 123 U/L (45-117); Anion Gap 8 (5-15); BUN 14 mg/dL (7-18); BUN/Creat Ratio 14.5 RATIO (10-20); Calcium,Total 7.4 mg/dL (8.5-10.1); Chloride 106 mmol/L (98-107); Creatinine, Serum 0.97 mg/dL (0.70-1.30); EST Glomerular Filtration Rate 84 mL/min (>60); Est Glom Filt Rate - Afr Amer 102 mL/min (>60); Estimated Creatinine Clearance 74.57 ml/min; Globulin 3.2 g/dL (2.2-4.2); Glucose 129 mg/dL (74-106); Potassium 2.4 mmol/L (3.5-5.1); Protein, Total 5.6 g/dL (6.4-8.2); Sodium Level 141 mmol/L (136-145)
[2021-03-05] MEDS: TBO-FILGRASTIM 480 MCG/0.8 ML ML SC (09:15)
[2021-03-05] MEDS: Ensure Clear 120 ML Liquid PO ×3 (09:15→16:21)
[2021-03-05] MEDS: Gabapentin 300 MG Capsule PO (09:16)
[2021-03-05] MEDS: Potassium Chloride Oral Tablet 20 MEQ 40 MEQ PO ×2 (09:16→16:21)
--- NOTE | 2021-03-05 09:28 | PCM.RX.CS ---
Consult Pharmacy has been consulted to manage selected antiobiotic: Vancomycin Type of Consult: Follow-up Labs: Sodium 141 mmol/L (136-145) 03/05/21 07:20 Potassium 2.4 mmol/L (3.5-5.1) L* 03/05/21 07:20 Chloride 106 mmol/L (98-107) 03/05/21 07:20 Carbon Dioxide 27.0 mmol/L (21.0-32.0) 03/05/21 07:20 Anion Gap 8 (5-15) 03/05/21 07:20 BUN 14 mg/dL (7-18) 03/05/21 07:20 Creatinine 0.97 mg/dL (0.70-1.30) 03/05/21 07:20 Est GFR (MDRD) Af Amer 102 mL/min (>60) 03/05/21 07:20 Est GFR (MDRD) Non-Af 84 mL/min (>60) 03/05/21 07:20 BUN/Creatinine Ratio 14.5 RATIO (10-20) 03/05/21 07:20 Glucose 129 mg/dL (74-106) H 03/05/21 07:20 Vancomycin Trough 24.6 ug/mL (5.0-15.0) H 03/04/21 22:22 Random Vancomycin 19.0 ug/mL (0.0-15.0) H 03/05/21 07:20 Microbiology: Microbiology 03/03/21 17:47 Urine, Clean Catch Urine Culture - Final Staphylococcus epidermidis 03/04/21 09:02 Stool Enteric Bacteriology - Final 03/04/21 09:02 Stool C. difficile DNA Amplification - Final 03/03/21 16:50 Nasal Secretion SARS-CoV-2 Antigen (Rapid) - Final Goal Trough: 15-20 mcg/mL Pharmacy Plan for Drug Dosing: VANCOMYCIN LEVEL RECEIVED Current Vancomycin Dose: 750mg q8h (0630,1430,2230) currently held due to elevated trough Number of Doses Received: Vancomycin Level: random level resulted at 19.0 Hours Since Last Dose: 16 hours Renal Function: SrCr 0.34 Renal Function Trend: stable Lab/Micro: Vancomycin Plan/Comments: recommend changing to 750mg q12h starting 03/05/21 at 1000. trough before the 3rd dose Pending Level: 03/06/21 at 0930 Pharmacy Service will continue to monitor and adjust dosing as required. Follow-Up Labs: Trough Vancomycin - 03/06/21 at 0930
[2021-03-05] MEDS: Acyclovir 200 MG Capsule 400 MG PO ×2 (10:21→21:31)
[2021-03-05] MEDS: Loperamide 2 MG Capsule PO ×2 (10:21→13:57)
--- NOTE | 2021-03-05 10:43 | PN_ITS ---
Documented by User: Shannon Stewart NP-C 03/05/21 10:55 Subjective Subjective Patient seen and examined. Patient states he is feeling better than he did yesterday. Patiently currently sitting in bed eating breakfast. Patient denies complaints at this time Objective Data Objective Data Vital Signs: Vital Signs Temp Pulse Resp BP Pulse Ox 98.3 F 119 H 18 114/91 H 99 03/05/21 09:15 03/05/21 09:15 03/05/21 09:15 03/05/21 09:15 03/05/21 09:15 Oxygen Flow Rate (L/min) 3 Oxygen Delivery Method Room Air Weight: 143 lb 8.335 oz Body Mass Index (BMI) 21.8 Intake & Output: Intake and Output for Last 24 Hours 03/03/21 03/04/21 03/05/21 23:59 23:59 23:59 Intake Total 1405 / 1505 2029.25 / 2029.25 50 / 50 Output Total 125 / 125 Balance 1405 / 1505 1904.25 / 1904.25 50 / 50 Lab / Micro Data Result Diagrams: 03/05/21 07:20 03/05/21 07:20 Labs: Laboratory Results - last 24 hr 03/03/21 15:50: Diff Path Review Reviewed 03/03/21 17:47: Urine Color Shannon, Urine Clarity Clear, Urine pH 7.0, Ur Specific Savage 1.010, Urine Protein 30 H, Urine Glucose (UA) 250 H, Urine Ketones 5 H, Urine Occult Blood 10 H, Urine Nitrite Negative, Urine Bilirubin Negative, Urine Urobilinogen Normal, Ur Leukocyte Esterase 25 H, Urine RBC 0 SEEN, Urine WBC 0-5 SEEN, Ur Squamous Epith Cells 0-5 SEEN, Urine Bacteria 0 SEEN, Urine Mucus 1+ 03/04/21 22:22: Vancomycin Trough 24.6 H 03/05/21 07:20: WBC 0.0 L*, RBC 2.94 L, Hgb 8.7 L, Hct 26.9 L, MCV 91.5, MCH 29.6, MCHC 32.3, RDW Std Deviation 55.3 H, RDW Coeff of Nicky 16.3 H, Plt Count 22 L*, MPV 12.4 H, Immature Gran % (Auto) 0.000, Neut % (Auto) 100.0 H, Lymph % (Auto) 0.0 L, [place] % (Auto) 0.0, Eos % (Auto) 0.0, Baso % (Auto) 0.0, Absolute Neuts (auto) 0.0 L, Absolute Lymphs (auto) 0.00 L, Nucleated RBC % 0, Differential Comment , Diff Path Review October foll 03/05/21 07:20: Sodium 141, Potassium 2.4 L*, Chloride 106, Carbon Dioxide 27.0, Anion Gap 8, BUN 14, Creatinine 0.97, Estim Creat Clear Calc 74.57, Est GFR (MDRD) Af Amer 102, Est GFR (MDRD) Non-Af 84, BUN/Creatinine Ratio 14.5, Glucose 129 H, Calcium 7.4 L, Total Bilirubin 1.10 H, AST 14 L, ALT 35, Alkaline Phosphatase 123 H, Total Protein 5.6 L, Albumin 2.4 L, Globulin 3.2, Albumin/Gl obulin Ratio 0.8 L 03/05/21 07:20: Random Vancomycin 19.0 H Micro: Microbiology 03/03/21 17:47 Urine, Clean Catch Urine Culture - Final Staphylococcus epidermidis 03/04/21 09:02 Stool Enteric Bacteriology - Final 03/04/21 09:02 Stool C. difficile DNA Amplification - Final 03/03/21 16:50 Nasal Secretion SARS-CoV-2 Antigen (Rapid) - Final Rhythm Strip Rhythm Strip: Sinus Rhythm Rate: 96 Ectopy: None Physical Exam Const alert General Appearance: cooperative Orientation / Consciousness: oriented to person and oriented to place HEENT normocephalic and head/scalp atraumatic Eyes conjunctivae normal and no scleral icterus Neck supple and no JVD General: trachea midline Resp normal respiratory effort, normal air movement and clear to auscultation bilaterally Cardio regular rate, regular rhythm, S1 normal heart sound and S2 normal heart sound Rate: tachycardic Peripheral Pulses: pulses 2+ throughout GI normal to inspection, nondistended, normoactive bowel sounds, soft to palpation and non-tender Extremity normal capillary refill and no clubbing, cyanosis or edema General Extremity: no tenderness to palpation of joints or extremities Skin General Skin Exam: no breakdown and turgor normal Lesions: no lesions Rashes: no rashes Neuro no focal motor deficits and no sensory deficits noted Speech: speech normal Motor Exam: general weakness Psych thought process normal, cooperative and affect normal Appearance: appropriate Assessment & Plan Assessment/Plan (1) Neutropenic sepsis: PLAN: 1. Neutropenic sepsis -Patient continues to have neutropenia with white cell count of 0 -Neutropenic precautions ordered -Continue Neulasta -Continue antibiotic therapy -Infectious disease consulted 2. Pancytopenia -Will continue Neulasta -Oncology following,platelet transfusion for less than 20,000/evidence of bleeding. -Patient received 1 unit platelets 03/03/2021 we will transfuse second unit today. Platelets continue to increase, 22,000 today 3. Hypokalemia -Potassium 2.3 today, down from 2.9 yesterday despite potassium replacement -Potassium chloride 40 mEq IV ordered in addition to patient home dose potassium chloride 40 mEq twice daily p.o. 4. Acute encephalopathy -Due to thrombocytopenia we will continue to treat empirically with Rocephin, ampicillin, vancomycin due to inability to perform lumbar puncture. -Patient mental status has improved, while patient continues to be confused. 5. Multiple myeloma -Patient currently undergoing chemotherapy -Oncology following, recommends blood transfusion for hgb less than 7 and to continue neupogen until neutropenia resolves. 6. Diarrhea -Possibly secondary to antibiotics however will obtain enteric panel and C. difficile DVT prophylaxis-SCDs This patient was seen by GATITO Mike under the supervision of Dr. Morales Documented by User: Dr. Clarence Morales DO 03/05/21 16:17 Objective Data Lab / Micro Data Result Diagrams: 03/05/21 07:20 03/05/21 07:20 Charges/Coding Addendum Addendum: Patient seen and examined independently. Data and vitals reviewed. I agree with the above note by the nurse practitioner. Patient states that he is feeling well at this time. Physical exam: No acute distress and afebrile. Left facial droop. Heart rate regular rate and rhythm plus S1-S2 without a murmurs Rubs. Lungs Are Clear to Auscultation Bilaterally. Abdomen Is Soft Nontender Nondistended Normal Bowel Sounds. Extremities Are in the Sinus Clubbing or Edema. Assessment and Plan 1. Neutropenic fever He related with a right lower lobe infiltrate. Doubt any meningitis but patient is on ceftriaxone and vancomycin. Follow-up cultures. UCx showing S. epidermidis Infectious disease on consultation 2. Pancytopenia 2/2 chemotherapy Started on Neulasta transfuse for Hg <7, plt < 10k Monitor labs 3. Hypokalemia replace 4. Multiple myeloma follow up with oncology for resumption of chemotherapy Visit Charges Inpatient E&M: 94175 Subs Hosp L2
--- NOTE | 2021-03-05 11:00 | CASEMGMT ---
Per Haydee at [facility], they cannot accept pt at this time. SStjoão HUANG CM
[2021-03-05] MEDS: Potassium Chloride 10mEq/100mL 10 MEQ/100 ML IV.SOLN. 100 MEQ IV BOLUS ×4 (11:41→15:05)
[2021-03-05] MEDS: Menthol/Lanolin/Calamine/Znox 113 GM Tube 1 APPLIC TOPICAL ×2 (13:58→21:28)
[2021-03-05 14:38] LABS: Pathologist Review Reviewed
--- NOTE | 2021-03-05 16:07 | PCM.PN.ID ---
Physical Exam Narrative Feeling about the same, mental status a little better. No cough, no abd pain, no sore throat. Const no apparent distress General Appearance: cooperative Resp normal air movement and clear to auscultation bilaterally Cardio regular rate and regular rhythm GI normal to inspection, nondistended, normoactive bowel sounds Skin no rashes or lesions noted ID ID: Route of nutrition/ use of supplements: [] Nutritional Intake: [] IV Site: [] Cedillo Catheter: [] Assessment & Plan Assessment/Plan (1) Multiple myeloma: (2) Acute encephalopathy: PLAN: Encephalopathy and pancytopenia. Covid rapid neg, unvaccinated. Mental status slightly improved. Wbc is 0. Oncology consulted. On empiric coverage with vanc/ceftriaxone. Doubt meningitis due to clinical stability. Will follow, d/w Dr. Mayes (3) Pancytopenia:
[2021-03-06] VITALS (13 sets, daily range): BP systolic 94–107; BP diastolic 72–84; PULSE 91–121; RESP 18–20; TEMP 36.2–36.9; O2SAT 98–100
[2021-03-06] MEDS: Menthol/Lanolin/Calamine/Znox 113 GM Tube 1 APPLIC TOPICAL ×3 (06:06→22:27)
[2021-03-06 06:35] LABS: Hematocrit 29.3 % (40-54); Hemoglobin 9.2 g/dL (13.0-16.5); Mean Corp Hgb Conc 31.4 g/dL (32-36); Mean Corpuscular Hgb 29.6 pg (27.0-32.0); Mean Corpuscular Volume 94.2 fL (80-94); NRBC Flagged by Analyzer 0 % (0-5); Neutrophil # 0.01 X10^3/uL (2.7-7.7); POSITIVE COUNT YES; POSITIVE DIFFERENTIAL YES; POSITIVE MORPHOLOGY YES; RBC Distribution Width CV 17.2 % (11.6-14.6); RBC Distribution Width SD 59.4 fl (35.1-43.9); Red Blood Count 3.11 M/mm3 (4.6-6.2)
[2021-03-06 06:48] LABS: Differential Indicated SCAN CRITERIA MET; Platelet Count 12 K/mm3 (150-450)
--- NOTE | 2021-03-06 06:51 | NURSING ---
Pts primary rn aware of wbc of 0.01 and plts of 12 at this time.
[2021-03-06 07:05] LABS: Differential Comment SCANNED; Platelet Estimate MKD DEC (ADEQ)
[2021-03-06 07:15] LABS: ALB/GLOB Ratio 0.7 RATIO (0.9-2.4); AST(SGOT) 8 U/L (15-37); Alanine Aminotransfer ALT/SGPT 25 U/L (16-61); Albumin, Serum 2.4 g/dL (3.2-5.0); Alkaline Phosphatase 129 U/L (45-117); Anion Gap 8 (5-15); BUN 36 mg/dL (7-18); BUN/Creat Ratio 18.8 RATIO (10-20); Calcium,Total 7.8 mg/dL (8.5-10.1); Chloride 111 mmol/L (98-107); Creatinine, Serum 1.92 mg/dL (0.70-1.30); EST Glomerular Filtration Rate 38 mL/min (>60); Est Glom Filt Rate - Afr Amer 46 mL/min (>60); Estimated Creatinine Clearance 37.67 ml/min; Globulin 3.6 g/dL (2.2-4.2); Glucose 130 mg/dL (74-106); Potassium 3.3 mmol/L (3.5-5.1); Sodium Level 143 mmol/L (136-145)
[2021-03-06] MEDS: 0.9% Saline Lock 10 ML Syringe IV (09:57)
[2021-03-06] MEDS: Gabapentin 300 MG Capsule PO (09:58)
[2021-03-06] MEDS: Potassium Chloride Oral Tablet 20 MEQ 40 MEQ PO (09:58)
[2021-03-06] MEDS: Acyclovir 200 MG Capsule 400 MG PO ×2 (09:58→22:24)
[2021-03-06 10:01] LABS: Vancomycin, Trough Level 32.2 ug/mL (5.0-15.0)
[2021-03-06] MEDS: Ensure Clear 120 ML Liquid PO ×2 (10:06→22:27)
--- NOTE | 2021-03-06 10:59 | PCM.RX.CS ---
Consult Pharmacy has been consulted to manage selected antiobiotic: Vancomycin Type of Consult: Follow-up Labs: Sodium 143 mmol/L (136-145) 03/06/21 06:24 Potassium 3.3 mmol/L (3.5-5.1) L 03/06/21 06:24 Chloride 111 mmol/L (98-107) H 03/06/21 06:24 Carbon Dioxide 24.0 mmol/L (21.0-32.0) 03/06/21 06:24 Anion Gap 8 (5-15) 03/06/21 06:24 BUN 36 mg/dL (7-18) H 03/06/21 06:24 Creatinine 1.92 mg/dL (0.70-1.30) H 03/06/21 06:24 Est GFR (MDRD) Af Amer 46 mL/min (>60) L 03/06/21 06:24 Est GFR (MDRD) Non-Af 38 mL/min (>60) L 03/06/21 06:24 BUN/Creatinine Ratio 18.8 RATIO (10-20) 03/06/21 06:24 Glucose 130 mg/dL (74-106) H 03/06/21 06:24 Vancomycin Trough 32.2 ug/mL (5.0-15.0) H 03/06/21 09:22 Random Vancomycin 19.0 ug/mL (0.0-15.0) H 03/05/21 07:20 Microbiology: Microbiology 03/03/21 15:50 Blood Culture (Wb) - Arm Left Blood Culture - Preliminary No growth in 48 hours. 03/03/21 19:20 Blood Culture (Wb) - Anticubital Left Blood Culture - Preliminary No growth in 48 hours. 03/03/21 17:47 Urine, Clean Catch Urine Culture - Final Staphylococcus epidermidis 03/04/21 09:02 Stool Enteric Bacteriology - Final 03/04/21 09:02 Stool C. difficile DNA Amplification - Final 03/03/21 16:50 Nasal Secretion SARS-CoV-2 Antigen (Rapid) - Final Goal Trough: 15-20 mcg/mL Pharmacy Plan for Drug Dosing: VANCOMYCIN LEVEL RECEIVED Current Vancomycin Dose: 750mg IV Q12hr Number of Doses Received: 2 Vancomycin Level: 32.2 Hours Since Last Dose: 12hr Renal Function: 1.92 / 37 ml/min Renal Function Trend: significant increase in SCr over the past 24hrs Lab/Micro: pending Vancomycin Plan/Comments: The patient had an elevated trough which resulted in a value of 32.2 (12hrs from last dose). Of note, the patient had a significant decrease in renal function over the past 24hrs. Will hold vancomycin at this time and check a random vancomycin trough in 24hrs and assess dosing at that time. Pending Level: *RANDOM* level 03/07/21 with AM labs Pharmacy Service will continue to monitor and adjust dosing as required.
--- NOTE | 2021-03-06 11:34 | US_ITS ---
STUDY: RENAL ULTRASOUND - COMPLETE REASON FOR EXAM: Male, 60 years old. worsening kidney function TECHNIQUE: Ultrasound evaluation of the kidneys was performed with real-time and static dutton-scale imaging. COMPARISON: None. FINDINGS: RIGHT KIDNEY: Normal location of the right kidney, which is normal in size. The right kidney measures 10.8 x 5.9 x 6.2 cm. There is a normal cortex of the right kidney. The renal cortex measures 1.2 cm. There is no right renal mass or cyst. There are no right renal calculi. There is no right hydronephrosis. DISTAL RIGHT URETER: There is non-visualization of the distal right ureter. There is no demonstrated right ureterovesical junction calculus. There is no demonstrated right ureteral jet. LEFT KIDNEY: Normal location of the left kidney, which is normal in size. The left kidney measures 9.2 x 5.5 x 4.9 cm. There is diffuse thinning of the renal cortex. The renal cortex measures 0.9 cm. There is no left renal mass or cyst. There are no left renal calculi. There is an extra-renal pelvis of the left kidney. There is no distention of the renal calyces. DISTAL LEFT URETER: There is non-visualization of the distal left ureter. There is no demonstrated left ureterovesical junction calculus. There is no demonstrated left ureteral jet. AORTA: There is obscuration of the abdominal aorta by overlying bowel gas I.V.C.: The IVC is obscured. BLADDER: There is a Cedillo balloon catheter in the urinary bladder. There are no demonstrated bladder calculi. US/Kidney and Bladder IMPRESSION: Left extrarenal pelvis. Electronically Signed: Ray Ackerman MD at 15:55 EDT , Service support ,
[2021-03-06] MEDS: TBO-FILGRASTIM 480 MCG/0.8 ML ML SC (12:48)
--- NOTE | 2021-03-06 13:04 | PN_ITS ---
Documented by User: Shannon Stewart NP-Arlyn 03/06/21 13:17 Subjective Subjective Patient seen and examined. Patient continues to have altered mental status however this waxes and wanes with patient being more alert at times. Patient at bedside updated on patient condition, lab results, plan and is agre eable. Objective Data Objective Data Vital Signs: Vital Signs Temp Pulse Resp BP Pulse Ox 98.5 F 110 H 20 H 94/72 98 03/06/21 09:55 03/06/21 09:55 03/06/21 09:55 03/06/21 09:55 03/06/21 09:55 Oxygen Flow Rate (L/min) 3 Oxygen Delivery Method Room Air Weight: 143 lb 8.335 oz Body Mass Index (BMI) 21.8 Intake & Output: Intake and Output for Last 24 Hours 03/04/21 03/05/21 03/06/21 23:59 23:59 23:59 Intake Total 2029.25 / 2029.25 1400 / 1400 0 / 0 Output Total 125 / 125 0 / 0 Balance 1904.25 / 1904.25 1400 / 1400 0 / 0 Lab / Micro Data Result Diagrams: 03/06/21 06:24 03/06/21 06:24 Labs: Laboratory Results - last 24 hr 03/04/21 07:15: Diff Path Review Reviewed 03/06/21 06:24: WBC 0.0 L*, RBC 3.11 L, Hgb 9.2 L, Hct 29.3 L, MCV 94.2 H, MCH 29.6, MCHC 31.4 L, RDW Std Deviation 59.4 H, RDW Coeff of Nicky 17.2 H, Plt Count 12 L*, MPV 11.0, Immature Gran % (Auto) 0.000, Neut % (Auto) 100.0 H, Lymph % (Auto) 0.0 L, [place] % (Auto) 0.0, Eos % (Auto) 0.0, Baso % (Auto) 0.0, Absolute Neuts (auto) 0.0 L, Absolute Lymphs (auto) 0.00 L, Nucleated RBC % 0, Diff erential Comment SCANNED, Diff Path Review October, Platelet Estimate MKD 03/06/21 06:24: Sodium 143, Potassium 3.3 L, Chloride 111 H, Carbon Dioxide 24.0, Anion Gap 8, BUN 36 H, Creatinine 1.92 H, Estim Creat Clear Calc 37.67, Est GFR (MDRD) Af Amer 46 L, Est GFR (MDRD) Non-Af 38 L, BUN/Creatinine Ratio 18.8, Glucose 130 H, Calcium 7.8 L, Total Bilirubin 0.90, AST 8 L, ALT 25, Alkaline Phosphatase 129 H, Total Protein 6.0 L, Albumin 2.4 L, Globulin 3.6, Albumin/Globulin Ratio 0.7 L 03/06/21 09:22: Vancomycin Trough 32.2 H Micro: Microbiology 03/03/21 15:50 Blood Culture (Wb) - Arm Left Blood Culture - Preliminary No growth in 48 hours. 03/03/21 19:20 Blood Culture (Wb) - Anticubital Left Blood Culture - Preliminary No growth in 48 hours. 03/03/21 17:47 Urine, Clean Catch Urine Culture - Final Staphylococcus epidermidis 03/04/21 09:02 Stool Enteric Bacteriology - Final 03/04/21 09:02 Stool C. difficile DNA Amplification - Final 03/03/21 16:50 Nasal Secretion SARS-CoV-2 Antigen (Rapid) - Final Rhythm Strip Rhythm Strip: Sinus Rhythm Rate: 96 Ectopy: None Physical Exam Narrative General. Acutely and chronically ill looking, poorly kempt, depressed appearing, disoriented, lethargic, psychomotor retardation HEENT. Oral mucosa dry, conjunctiva pale Neck. Neck is supple without any stiffness or rigidity. Heart. First and second heart sounds heard. No murmurs. Lungs. Lungs clear to auscultation. Abdomen. Soft and full. Moves with respiration. No undue tenderness. Extremities. No pedal edema. Skin. Scattered and occasional petechiae and ecchymosis. 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 Cranial nerves II through XII grossly intact. Const alert and no apparent distress Constitutional Narrative: disheveled. General Appearance: cooperative Orientation / Consciousness: oriented to person and oriented to place HEENT normocephalic and head/scalp atraumatic Eyes conjunctivae normal and no scleral icterus Eyes Narrative: no icterus Neck supple and no JVD Neck Narrative: no meningismus General: trachea midline Resp normal respiratory effort, normal air movement and clear to auscultation bilaterally Auscultation: diminished lung sounds Cardio regular rate, regular rhythm, S1 normal heart sound and S2 normal heart sound Rate: tachycardic Peripheral Pulses: pulses 2+ throughout GI normal to inspection, nondistended, normoactive bowel sounds, soft to palpation, non-tender and non-distended Extremity normal capillary refill and no clubbing, cyanosis or edema General Extremity: no tenderness to palpation of joints or extremities Skin General Skin Exam: no breakdown and turgor normal Lesions: no lesions Rashes: no rashes Neuro no focal motor deficits and no sensory deficits noted Speech: speech normal Motor Exam: general weakness Psych thought process normal, cooperative, affect normal and speech normal Appearance: appropriate Thought Process: confused Assessment & Plan Assessment/Plan (1) Neutropenic sepsis: PLAN: 1. Neutropenic sepsis -Patient continues to have neutropenia with white cell count of 0 hemoglobin continues to improve -Neutropenic precautions ordered -Continue Neulasta -Continue vancomycin and ceftriaxone -Infectious disease following -PICC line will be placed due to patient lost IV access and unable to reestablish 2. Acute kidney injury -Possibly secondary to the administration of vancomycin however due to patient noted abdominal distention as well will obtain kidney ultrasound. If ultrasound normal plan to start gentle IV hydration at 75 ml/hr -We will hold vancomycin today repeat Vanco trough ordered for 03/07/2021 -Repeat CMP ordered for a.m. 3. Pancytopenia -Will continue Neulasta -Oncology following,platelet transfusion for less than 20,000/evidence of ble eding. -Patient received 1 unit platelets 03/03/2021 we will transfuse second unit today. Platelets decreased to 12,000 today, no signs symptoms of active bleeding. Once IV access is reestablished will order platelets. 4. Hypokalemia -Potassium 3.3, continue BID replacement 5. Acute encephalopathy -Due to thrombocytopenia we will continue to treat empirically with Rocephin, vancomycin due to inability to perform lumbar puncture. -Patient mental status has improved, while patient continues to be confused. 6. Multiple myeloma -Patient currently undergoing chemotherapy -Oncology following, recommends blood transfusion for hgb less than 7 and to continue neupogen until neutropenia resolves. 7. Diarrhea -Cdiff and enteric panel negative -improved DVT prophylaxis-SCDs This patient was seen by GATITO Mike under the supervision of Dr. Morales Documented by User: Dr. Clarence Morales DO 03/06/21 16:53 Objective Data Lab / Micro Data Result Diagrams: 03/06/21 06:24 03/06/21 06:24 Charges/Coding Addendum Addendum: Patient seen and examined independently. Data and vitals reviewed. I agree with the above note by the nurse practitioner. Patient denies any current issues but difficult to understand him. Urinary retention for greater than 100 cc. Patient was turned on his side getting his diaper change and was moaning. Speech is mumbled but patient's states that that is typical for him when he gets sick. Heart rate regular rate and rhythm plus S1-S2 any murmurs Or rubs. Lungs are clear to auscultation bilaterally. Abdomen is distended Assessment and Plan 1. Neutropenic fever He related with a right lower lobe infiltrate. Doubt any meningitis but patient is on ceftriaxone and vancomycin. Follow-up cultures. UCx showing S. epidermidis Infectious disease on consultation 2. Pancytopenia 2/2 chemotherapy Started on Neulasta transfuse for Hg <7, plt < 10k. 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 Monitor labs 3. Hypokalemia replace 4. Multiple myeloma follow up with oncology for resumption of chemotherapy 5. Acute kidney injury Might be postobstructive as patient was having profound urinary retention Catheter placed Start tamsulosin
[2021-03-06] MEDS: Tamsulosin HCl 0.4 MG Capsule PO (22:25)
[2021-03-07] VITALS (15 sets, daily range): BP systolic 75–118; BP diastolic 52–90; PULSE 87–125; RESP 18–30; TEMP 36.1–37; O2SAT 92–100
--- NOTE | 2021-03-07 00:37 | NURSING ---
No IV site unable to get access on dayshift. resident assistant to come in and insert a PICC. resident assistant didn't come in tonight ATB ceftriaxone not given.
--- NOTE | 2021-03-07 01:41 | NURSING ---
This was in patient room to help reposition the patient. This nurse told patient that I was going to do a assessment on him when the blood pressure started pumping on the left arm put started panicking. I was able to get patient to calm down after removing the blood pressure cuff off arm. Patient started vomiting and the color was a green bile color 150 mL in canister and a large amount on his gown and green pad. LS clear and diminished. Doctor made aware that patient had a vomiting episode and when we turn side to side patient mumbles I cannot breathe. Patient cleaned up and HOB elevated at 30 degrees. VS Bp 116/82, RR-20, Temp 97.8 temporal, HR 104. Doctor gave verbal order to start a IV in his foot to be able to give IV zofran. Asked doctor if he would like a KUB on patient response no.
[2021-03-07] MEDS: proCHLORPERazine 10 MG/2 ML Vial 5 MG IM (03:11)
--- NOTE | 2021-03-07 03:13 | EKG12_ITS ---
Test Reason : CP Blood Pressure : / mmHG Vent. Rate : 118 BPM Atrial Rate : 118 BPM P-R Int : 120 ms QRS Dur : 080 ms QT Int : 358 ms P-R-T Axes : 041 002 124 degrees QTc Int : [address] & T wave abnormality, consider anterolateral ischemia Abnormal ECG When compared with ECG of 03-MAR-2021 15:03, No significant change was found Confirmed by LAST VALDES, BALDOMERO ([id number]), rewrite editor SEJAL FLOWERS ([id number]) on 03/09/2021 2:13:06 PM Referred By: LARISSA Confirmed By:BALDOMERO NI MD
[2021-03-07] MEDS: Menthol/Lanolin/Calamine/Znox 113 GM Tube 1 APPLIC TOPICAL ×3 (05:32→22:34)
[2021-03-07 05:56] LABS: Hematocrit 26.1 % (40-54); Hemoglobin 8.6 g/dL (13.0-16.5); Mean Corpuscular Hgb 30.2 pg (27.0-32.0); Mean Corpuscular Volume 91.6 fL (80-94); NRBC Flagged by Analyzer 0 % (0-5); Neutrophil # 0.02 X10^3/uL (2.7-7.7); POSITIVE COUNT YES; POSITIVE DIFFERENTIAL YES; POSITIVE MORPHOLOGY YES; Platelet Count 4 K/mm3 (150-450); RBC Distribution Width CV 17.4 % (11.6-14.6); RBC Distribution Width SD 58.4 fl (35.1-43.9); Red Blood Count 2.85 M/mm3 (4.6-6.2)
[2021-03-07 06:01] LABS: Differential Indicated SCAN CRITERIA MET
[2021-03-07 06:22] LABS: ALB/GLOB Ratio 0.6 RATIO (0.9-2.4); AST(SGOT) 11 U/L (15-37); Alanine Aminotransfer ALT/SGPT 19 U/L (16-61); Albumin, Serum 2.3 g/dL (3.2-5.0); Alkaline Phosphatase 120 U/L (45-117); Anion Gap 11 (5-15); BUN 53 mg/dL (7-18); BUN/Creat Ratio 31.4 RATIO (10-20); Calcium,Total 8.6 mg/dL (8.5-10.1); Chloride 113 mmol/L (98-107); Creatinine, Serum 1.69 mg/dL (0.70-1.30); EST Glomerular Filtration Rate 44 mL/min (>60); Est Glom Filt Rate - Afr Amer 53 mL/min (>60); Globulin 3.8 g/dL (2.2-4.2); Glucose 128 mg/dL (74-106); Potassium 3.1 mmol/L (3.5-5.1); Protein, Total 6.1 g/dL (6.4-8.2); Sodium Level 145 mmol/L (136-145)
[2021-03-07 06:25] LABS: Vancomycin, Random Level 24.2 ug/mL (0.0-15.0)
[2021-03-07 06:48] LABS: Microcytosis 1+; Tear Drop Cell RARE
[2021-03-07 06:49] LABS: Anisocytosis 1+
--- NOTE | 2021-03-07 07:19 | PCM.RX.CS ---
Consult Pharmacy has been consulted to manage selected antiobiotic: Vancomycin Type of Consult: Follow-up Labs: Sodium 145 mmol/L (136-145) 03/07/21 05:18 Potassium 3.1 mmol/L (3.5-5.1) L 03/07/21 05:18 Chloride 113 mmol/L (98-107) H 03/07/21 05:18 Carbon Dioxide 21.0 mmol/L (21.0-32.0) 03/07/21 05:18 Anion Gap 11 (5-15) 03/07/21 05:18 BUN 53 mg/dL (7-18) H 03/07/21 05:18 Creatinine 1.69 mg/dL (0.70-1.30) H 03/07/21 05:18 Est GFR (MDRD) Af Amer 53 mL/min (>60) L 03/07/21 05:18 Est GFR (MDRD) Non-Af 44 mL/min (>60) L 03/07/21 05:18 BUN/Creatinine Ratio 31.4 RATIO (10-20) H 03/07/21 05:18 Glucose 128 mg/dL (74-106) H 03/07/21 05:18 Vancomycin Trough 32.2 ug/mL (5.0-15.0) H 03/06/21 09:22 Random Vancomycin 24.2 ug/mL (0.0-15.0) H 03/07/21 05:18 Microbiology: Microbiology 03/03/21 15:50 Blood Culture (Wb) - Arm Left Blood Culture - Preliminary No growth in 48 hours. 03/03/21 19:20 Blood Culture (Wb) - Anticubital Left Blood Culture - Preliminary No growth in 48 hours. 03/03/21 17:47 Urine, Clean Catch Urine Culture - Final Staphylococcus epidermidis 03/04/21 09:02 Stool Enteric Bacteriology - Final 03/04/21 09:02 Stool C. difficile DNA Amplification - Final 03/03/21 16:50 Nasal Secretion SARS-CoV-2 Antigen (Rapid) - Final Goal Trough: 15-20 mcg/mL Pharmacy Plan for Drug Dosing: VANCOMYCIN LEVEL RECEIVED Current Vancomycin Dose: ON HOLD - Was previously on 750mg IV Q12h Number of Doses Received: on hold Vancomycin Level: 24.2 Hours Since Last Dose: ~32hr Renal Function: 1.69 / 43 mL/min Renal Function Trend: slight improvement in renal function from yesterday Lab/Micro: UCx growing staph epi w/ multiple resistance. sens to vancomycin Vancomycin Plan/Comments: Trough still elevated despite not having any vancomycin doses yesterday. Will hold another day and obtain a random trough level with AM labs to determine dosing at that time. Once trough is below 20, will resume vancomycin. Will continue to monitor. Pending Level: *RANDOM* level 03/08/21 with AM labs Pharmacy Service will continue to monitor and adjust dosing as required.
--- NOTE | 2021-03-07 07:47 | RAD_ITS ---
STUDY: X-RAY - ABDOMEN/PELVIS REASON FOR EXAM: Male, 60 years old. emesis TECHNIQUE: Single AP view of the abdomen / pelvis. COMPARISON: None. FINDINGS: Normal visualized lung bases. Moderate colonic distention. The visualized liver, spleen and kidneys are grossly normal in size and morphology. Normal soft tissue structures. Normal visualized osseous structures. RAD/Abdomen Single View (Portable) IMPRESSION: Moderate colonic distention. Electronically Signed: Joseph Waite MD at 12:42 EDT Tel , Service support ,
[2021-03-07] MEDS: 0.9% Normal Saline 1,000 ML 125 ML IV ×2 (10:25→18:42)
[2021-03-07] MEDS: TBO-FILGRASTIM 480 MCG/0.8 ML ML SC (10:29)
[2021-03-07] MEDS: Ondansetron 4 MG/2 ML Vial IV (10:29)
--- NOTE | 2021-03-07 13:38 | PCM.PROGNOTE ---
Documented by User: Shannon Stewart NP-Arlyn 03/07/21 14:09 Subjective Subjective Patient seen and examined. Patient laying in bed, no distress noted patient lethargic and more confused today. Patient denies complaints at this time. Objective Data Objective Data Vital Signs: Vital Signs Temp Pulse Resp BP Pulse Ox 97.7 F L 118 H 30 H 91/70 98 03/07/21 08:03 03/07/21 08:03 03/07/21 08:03 03/07/21 08:03 03/07/21 08:03 Oxygen Flow Rate (L/min) 3 Oxygen Delivery Method Room Air Weight: 143 lb 8.335 oz Body Mass Index (BMI) 21.8 Intake & Output: Intake and Output for Last 24 Hours 03/05/21 03/06/21 03/07/21 23:59 23:59 23:59 Intake Total 1400 / 1400 600 / 600 Output Total 0 / 0 1600 / 1600 1200 / 1200 Balance 1400 / 1400 -1000 / -1000 -1200 / -1200 Lab / Micro Data Result Diagrams: 03/07/21 05:18 03/07/21 05:18 Labs: Laboratory Results - last 24 hr 03/07/21 05:18: WBC 0.0 L*, RBC 2.85 L, Hgb 8.6 L, Hct 26.1 L, MCV 91.6, MCH 30.2, MCHC 33.0 D, RDW Std Deviation 58.4 H, RDW Coeff of Nicky 17.4 H, Plt Count 4 L*, Immature Gran % (Auto) 0.000, Neut % (Auto) 100.0 H, Lymph % (Auto) 0.0 L, [place] % (Auto) 0.0, Eos % (Auto) 0.0, Baso % (Auto) 0.0, Absolute Neuts (auto) 0.0 L, Absolute Lymphs (auto) 0.00 L, Nucleated RBC % 0, Diff Path Review May foll, Anisocytosis 1+, Microcytosis 1+, Tear Drop Cells RARE 03/07/21 05:18: Sodium 145, Potassium 3.1 L, Chloride 113 H, Carbon Dioxide 21.0, Anion Gap 11, BUN 53 H, Creatinine 1.69 H, Estim Creat Clear Calc 42.80, Est GFR (MDRD) Af Amer 53 L, Est GFR (MDRD) Non-Af 44 L, BUN/Creatinine Ratio 31.4 H, Glucose 128 H, Calcium 8.6, Total Bilirubin 1.30 H, AST 11 L, ALT 19, Alkaline Phosphatase 120 H, Total Protein 6.1 L, Albumin 2.3 L, Globulin 3.8, Albumin/Globulin Ratio 0.6 L 03/07/21 05:18: Random Vancomycin 24.2 H 03/07/21 08:12: Blood Type O POSITIVE Micro: Microbiology 03/03/21 15:50 Blood Culture (Wb) - Arm Left Blood Culture - Preliminary No growth in 48 hours. 03/03/21 19:20 Blood Culture (Wb) - Anticubital Left Blood Culture - Preliminary No growth in 48 hours. 03/03/21 17:47 Urine, Clean Catch Urine Culture - Final Staphylococcus epidermidis 03/04/21 09:02 Stool Enteric Bacteriology - Final 03/04/21 09:02 Stool C. difficile DNA Amplification - Final 03/03/21 16:50 Nasal Secretion SARS-CoV-2 Antigen (Rapid) - Final Radiography Diagnostic Testing: Radiology Impression Renal Ultrasound 03/06/21 11:34 IMPRESSION: Left extrarenal pelvis. Electronically Signed: Ray Ackerman MD at 15:55 EDT , Service support , KUB X-Ray 03/07/21 07:47 IMPRESSION: Moderate colonic distention. Electronically Signed: Joseph Waite MD at 12:42 EDT Tel , Service support , Rhythm Strip Rhythm Strip: Sinus Rhythm Rate: 96 Ectopy: None Physical Exam Const no apparent distress General Appearance: cooperative Orientation / Consciousness: oriented to person, oriented to place and lethargic HEENT normocephalic and head/scalp atraumatic Eyes conjunctivae normal and no scleral icterus Neck supple and no JVD General: trachea midline Resp normal respiratory effort, normal air movement and clear to auscultation bilaterally Auscultation: diminished lung sounds Cardio regular rate, regular rhythm, S1 normal heart sound and S2 normal heart sound Rate: tachycardic Peripheral Pulses: pulses 2+ throughout GI non-tender Inspection: abdominal distention Auscultation: hypoactive bowel sounds Extremity normal capillary refill and no clubbing, cyanosis or edema General Extremity: no tenderness to palpation of joints or extremities Skin General Skin Exam: no breakdown and turgor normal Lesions: no lesions Rashes: no rashes Neuro no focal motor deficits and no sensory deficits noted Speech: speech normal Motor Exam: general weakness Psych cooperative, affect normal and speech normal Appearance: appropriate Thought Process: confused Assessment & Plan Assessment/Plan (1) Neutropenic sepsis: PLAN: 1. Neutropenic sepsis -Patient continues to have neutropenia with white cell count of 0 -Neutropenic precautions ordered -Continue Neulasta -Continue vancomycin and ceftriaxone -Infectious disease following -PICC line unable to be placed due to low platelet count however PICC nurse placed peripheral IV 20-gauge in left AC and states if patient continues to need PICC once platelets are replaced and elevated to call for PICC placement at that time. 2. Colonic distention, unknown cause -KUB obtained due to increased abdominal distention, demonstrates moderate colonic distention. -Kidney ultrasound normal -NPO ordered -Barium enema ordered 2. Acute kidney injury -Possibly secondary to the administration of vancomycin -Kidney ultrasound obtained yesterday negative for acute findings however bladder scan was performed prior to kidney ultrasound by RN who noted to have bladder distention. Cedillo catheter placed with 1300 mL immediate return, maintained with adequate output -BUN and creatinine improved, normal saline ordered 125ml/hr -Continue to hold vancomycin 03/07/2021, random trough ordered in a.m. -Repeat CMP ordered for a.m. 3. Pancytopenia -Will continue Neulasta -Oncology following,platelet transfusion for less than 20,000/evidence of bleeding. -Unable to transfuse platelets yesterday due to lack of IV access and no notification from PICC nurse that PICC was unable to be placed yesterday. Patient platelet level 4000 today 2 units platelets ordered. CBC ordered for a.m. 4. Hypokalemia -Potassium 3.1, continue BID replacement 5. Acute encephalopathy -Due to thrombocytopenia we will continue to treat empirically with Rocephin, vancomycin due to inability to perform lumbar puncture. -Patient increased confusion and lethargy today 6. Multiple myeloma -Patient currently undergoing chemotherapy -Oncology following, recommends blood transfusion for hgb less than 7 and to continue neupogen until neutropenia resolves. 7. Diarrhea -Cdiff and enteric panel negative -improved DVT prophylaxis-SCDs This patient was seen by Shannon Stewart, [facility]-C under the supervision of Dr. Morales Documented by User: Dr. Clarence Morales DO 03/07/21 15:22 Objective Data Lab / Micro Data Result Diagrams: 03/07/21 05:18 03/07/21 05:18 Charges/Coding Addendum Addendum: Patient seen and examined independently. Data and vitals reviewed. I agree with the above note by the nurse practitioner. Emesis today. Catheter placed. Confused. Afebrile. HRRR S1S2. LCTAB. Abd distended high pitched BS. EXT w/o CCE. A/P: 1. Neutropenic fever He related with a right lower lobe infiltrate. Doubt any meningitis but patient is on ceftriaxone and vancomycin. Follow-up cultures. UCx showing S. epidermidis Infectious disease on consultation 2. Pancytopenia 2/2 chemotherapy Started on Neulasta transfuse for Hg <7, plt < 10k. Those herbarium worker recommended transfusion for platelets less than 20,000. Monitor labs Platelets even lower, will transfuse 3. Hypokalemia replace 4. Multiple myeloma follow up with oncology for resumption of chemotherapy 5. Acute kidney injury Might be postobstructive as patient was having profound urinary retention Catheter placed Start tamsulosin Improving 6. Volvulus v [place]'s syndrome NPO Barium enema, if relieves or passes through, then may be [place]. If volvulus, non-operable. Prognosis: guarded. High concernr for decompensation. Visit Charges Inpatient E&M: 30492 Subs Hosp L2
[2021-03-08] VITALS (10 sets, daily range): BP systolic 94–140; BP diastolic 63–119; PULSE 82–101; RESP 18–28; TEMP 36.2–36.7; O2SAT 95–100
[2021-03-08] MEDS: 0.9% Normal Saline 1,000 ML 125 ML IV ×3 (03:07→23:25)
[2021-03-08] MEDS: Menthol/Lanolin/Calamine/Znox 113 GM Tube 1 APPLIC TOPICAL ×3 (06:11→20:19)
[2021-03-08 06:30] LABS: Vancomycin, Random Level 15.2 ug/mL (0.0-15.0)
[2021-03-08 07:41] LABS: Hematocrit 22.8 % (40-54); Hemoglobin 7.3 g/dL (13.0-16.5); Mean Corpuscular Volume 93.8 fL (80-94); Mean Platelet Vol. 13.6 fl (6.2-12.0); NRBC Flagged by Analyzer 0 % (0-5); Neutrophil # 0.01 X10^3/uL (2.7-7.7); POSITIVE COUNT YES; POSITIVE DIFFERENTIAL YES; RBC Distribution Width CV 17.3 % (11.6-14.6); RBC Distribution Width SD 59.7 fl (35.1-43.9); Red Blood Count 2.43 M/mm3 (4.6-6.2)
[2021-03-08 07:57] LABS: ALB/GLOB Ratio 0.6 RATIO (0.9-2.4); AST(SGOT) 8 U/L (15-37); Alanine Aminotransfer ALT/SGPT 21 U/L (16-61); Albumin, Serum 2.2 g/dL (3.2-5.0); Alkaline Phosphatase 96 U/L (45-117); Anion Gap 8 (5-15); BUN 48 mg/dL (7-18); BUN/Creat Ratio 39.7 RATIO (10-20); Calcium,Total 8.3 mg/dL (8.5-10.1); Chloride 120 mmol/L (98-107); Creatinine, Serum 1.21 mg/dL (0.70-1.30); EST Glomerular Filtration Rate 65 mL/min (>60); Est Glom Filt Rate - Afr Amer 79 mL/min (>60); Estimated Creatinine Clearance 59.78 ml/min; Globulin 3.7 g/dL (2.2-4.2); Glucose 126 mg/dL (74-106); Potassium 2.5 mmol/L (3.5-5.1); Protein, Total 5.9 g/dL (6.4-8.2); Sodium Level 153 mmol/L (136-145)
[2021-03-08 08:05] LABS: Differential Indicated SCAN CRITERIA MET; Platelet Count 27 K/mm3 (150-450)
[2021-03-08 08:23] LABS: Platelet Estimate MKD DEC (ADEQ); Red Cell Morphology NORM C+C NORMAL (NORM C&C)
--- NOTE | 2021-03-08 08:35 | PN.ONC_ITS ---
Subjective Subjective Off O2. Continues to have diarrhea. He thinks twice a day. Oriented to place and year. Physical Exam Const alert General Appearance: comfortable HEENT HEENT Narrative: Thrush. Eyes no scleral icterus Lymph Lymphatic: no lymphadenopathy noted Chest Chest: symmetrical chest wall rise Cardio regular rhythm GI GI Narrative: Distended and tympanic throughout. Vital Signs Temperature 97.8 F 03/08/21 08:03 Temperature Source Oral 03/08/21 08:03 Pulse Rate 101 H 03/08/21 08:03 Pulse Strength Weak (1+) 03/06/21 10:00 Respiratory Rate 28 H 03/08/21 08:12 Respiratory Effort 03/08/21 08:12 Respiratory Depth Shallow 03/08/21 08:12 Respiratory Pattern Normal 03/08/21 08:12 Blood Pressure 140/119 H 03/08/21 08:03 Blood Pressure Mean 126 03/08/21 08:03 Blood Pressure Source Monitor 03/08/21 08:03 Blood Pressure Position Semi-Fowlers 03/08/21 08:03 Blood Pressure Location Left Arm 03/08/21 08:03 Pulse Ox 98 03/08/21 08:03 Oxygen Delivery Method Room Air 03/08/21 08:12 Oxygen Flow Rate (L/min) 3 03/04/21 08:25 Laboratory Results - last 24 hr 03/07/21 08:12: Blood Type O POSITIVE 03/07/21 20:27: Plt Count 28 L* 03/08/21 04:35: Random Vancomycin 15.2 H 03/08/21 04:35: WBC 0.0 L*, RBC 2.43 L, Hgb 7.3 L, Hct 22.8 L, MCV 93.8, MCH 30.0, MCHC 32.0, RDW Std Deviation 59.7 H, RDW Coeff of Nicky 17.3 H, Plt Count 27 L*, MPV 13.6 H, Immature Gran % (Auto) 0.000, Neut % (Auto) 100.0 H, Lymph % (Auto) 0.0 L, [place] % (Auto) 0.0, Eos % (Auto) 0.0, Baso % (Auto) 0.0, Absolute Neuts (auto) 0.0 L, Absolute Lymphs (auto) 0.00 L, Nucleated RBC % 0, Differential Comment COMMENT, Diff Path Review May foll, Platelet Estimate MKD DEC, RBC Morphology NORM C+C 03/08/21 04:35: Sodium 153 H, Potassium 2.5 L*, Chloride 120 H, Carbon Dioxide 25.0, Anion Gap 8, BUN 48 H, Creatinine 1.21, Estim Creat Clear Calc 59.78, Est GFR (MDRD) Af Amer 79, Est GFR (MDRD) Non-Af 65, BUN/Creatinine Ratio 39.7 H, Glucose 126 H, Calcium 8.3 L, Total Bilirubin 1.10 H, AST 8 L, ALT 21, Alkaline Phosphatase 96, Total Protein 5.9 L, Albumin 2.2 L, Globulin 3.7, Albumin/Globulin Ratio 0.6 L Diagnostic Data Chest X-Ray 03/03/21 14:05 IMPRESSION: Findings suggestive of early right basilar infiltrate with blunting of the right costophrenic angle. Electronically Signed: Donavon Lopez MD at 14:42 EDT , Service support , Brain CT 03/03/21 16:30 IMPRESSION: Chronic involutional changes of the brain. No acute hemorrhage Lytic and lucent calvarial lesions consistent with patient''s history of multiple myeloma Electronically Signed: Juan A Crawford MD at 17:08 EDT , Service support , Renal Ultrasound 03/06/21 11:34 IMPRESSION: Left extrarenal pelvis. Electronically Signed: Ray Ackerman MD at 15:55 EDT , Service support , KUB X-Ray 03/07/21 07:47 IMPRESSION: Moderate colonic distention. Electronically Signed: Joseph Waite MD at 12:42 EDT Tel , Service support , Assessment & Plan Assessment/Plan (1) Thrombocytopenia: (2) Multiple myeloma: (3) Sepsis: (4) Neutropenia: (5) Acute encephalopathy: PLAN: Hemodynamically stable and off O2. Still with profound thrombocytopenia and neutropenia. Continue supportive care with transfusion plts if <20K continue Neupogen daily. Will follow.
--- NOTE | 2021-03-08 09:08 | PCM.RX.CS ---
Consult Pharmacy has been consulted to manage selected antiobiotic: Vancomycin Type of Consult: Follow-up Suspected Infection: Sepsis Labs: Sodium 153 mmol/L (136-145) H 03/08/21 04:35 Potassium 2.5 mmol/L (3.5-5.1) L* 03/08/21 04:35 Chloride 120 mmol/L (98-107) H 03/08/21 04:35 Carbon Dioxide 25.0 mmol/L (21.0-32.0) 03/08/21 04:35 Anion Gap 8 (5-15) 03/08/21 04:35 BUN 48 mg/dL (7-18) H 03/08/21 04:35 Creatinine 1.21 mg/dL (0.70-1.30) 03/08/21 04:35 Est GFR (MDRD) Af Amer 79 mL/min (>60) 03/08/21 04:35 Est GFR (MDRD) Non-Af 65 mL/min (>60) 03/08/21 04:35 BUN/Creatinine Ratio 39.7 RATIO (10-20) H 03/08/21 04:35 Glucose 126 mg/dL (74-106) H 03/08/21 04:35 Vancomycin Trough 32.2 ug/mL (5.0-15.0) H 03/06/21 09:22 Random Vancomycin 15.2 ug/mL (0.0-15.0) H 03/08/21 04:35 Microbiology: Microbiology 03/03/21 15:50 Blood Culture (Wb) - Arm Left Blood Culture - Preliminary No growth in 48 hours. 03/03/21 19:20 Blood Culture (Wb) - Anticubital Left Blood Culture - Preliminary No growth in 48 hours. 03/03/21 17:47 Urine, Clean Catch Urine Culture - Final Staphylococcus epidermidis 03/04/21 09:02 Stool Enteric Bacteriology - Final 03/04/21 09:02 Stool C. difficile DNA Amplification - Final 03/03/21 16:50 Nasal Secretion SARS-CoV-2 Antigen (Rapid) - Final Goal Trough: 15-20 mcg/mL Pharmacy Plan for Drug Dosing: VANCOMYCIN LEVEL RECEIVED Current Vancomycin Dose: current dose held due to elevated trough. previous dose was 750mg q12 Number of Doses Received: Vancomycin Level: 15.2 Hours Since Last Dose: 55 Renal Function: SrCr 1.21 Renal Function Trend: CrCl is improving Lab/Micro: Vancomycin Plan/Comments: recommend restarting Vancomycin at 750mg q24h. will check trough before the 2nd dose to make sure pt is clearing. Pending Level: 03/09/21 at 0930 Pharmacy Service will continue to monitor and adjust dosing as required. Follow-Up Labs: Trough Vancomycin - 03/09/21 at 0930
[2021-03-08] MEDS: proCHLORPERazine 10 MG/2 ML Vial 5 MG IM (10:17)
--- NOTE | 2021-03-08 10:39 | CASEMGMT ---
Per Dr. Morales and palliative screening, palliative referral faxed and call to palliative to notify of referral. Order placed. Melanie HUANG CM
[2021-03-08] MEDS: 0.9% Saline Lock 10 ML Syringe IV ×2 (10:46→14:42)
[2021-03-08] MEDS: TBO-FILGRASTIM 480 MCG/0.8 ML ML SC (10:49)
[2021-03-08 12:34] LABS: Pathologist Review Reviewed
[2021-03-08 12:45] LABS: Pathologist Review Reviewed
--- NOTE | 2021-03-08 12:53 | PN_ITS ---
Documented by User: Shannon Stewart NP-C 03/08/21 13:03 Subjective Subjective Patient seen and examined. Patient lethargic but arousable to voice. Patient remains confused and disoriented. Objective Data Objective Data Vital Signs: Vital Signs Temp Pulse Resp BP Pulse Ox 97.7 F L 91 26 H 114/82 H 95 03/08/21 11:37 03/08/21 12:43 03/08/21 11:37 03/08/21 11:37 03/08/21 11:37 Oxygen Flow Rate (L/min) 3 Oxygen Delivery Method Room Air Weight: 143 lb 8.335 oz Body Mass Index (BMI) 21.8 Intake & Output: Intake and Output for Last 24 Hours 03/06/21 03/07/21 03/08/21 23:59 23:59 23:59 Intake Total 600 / 600 1450 / 1450 0 / 2050 Output Total 1600 / 1600 1650 / 1950 1100 / 1100 Balance -1000 / -1000 -200 / -500 950 / 950 Lab / Micro Data Result Diagrams: 03/08/21 04:35 03/08/21 04:35 Labs: Laboratory Results - last 24 hr 03/05/21 07:20: Diff Path Review Reviewed 03/06/21 06:24: Diff Path Review Reviewed 03/07/21 08:12: Blood Type O POSITIVE 03/07/21 20:27: Plt Count 28 L* 03/08/21 04:35: Random Vancomycin 15.2 H 03/08/21 04:35: WBC 0.0 L*, RBC 2.43 L, Hgb 7.3 L, Hct 22.8 L, MCV 93.8, MCH 30.0, MCHC 32.0, RDW Std Deviation 59.7 H, RDW Coeff of Nicky 17.3 H, Plt Count 27 L*, MPV 13.6 H, Immature Gran % (Auto) 0.000, Neut % (Auto) 100.0 H, Lymph % (Auto) 0.0 L, [place] % (Auto) 0.0, Eos % (Auto) 0.0, Baso % (Auto) 0.0, Absolute Neuts (auto) 0.0 L, Absolute Lymphs (auto) 0.00 L, Nucleated RBC % 0, Differential Comment COMMENT, Diff Path Review May foll, Platelet Estimate MKD DEC, RBC Morphology NORM C+C 03/08/21 04:35: Sodium 153 H, Potassium 2.5 L*, Chloride 120 H, Carbon Dioxide 25.0, Anion Gap 8, BUN 48 H, Creatinine 1.21, Estim Creat Clear Calc 59.78, Est GFR (MDRD) Af Amer 79, Est GFR (MDRD) Non-Af 65, BUN/Creatinine Ratio 39.7 H, Glucose 126 H, Calcium 8.3 L, Total Bilirubin 1.10 H, AST 8 L, ALT 21, Alkaline Phosphatase 96, Total Protein 5.9 L, Albumin 2.2 L, Globulin 3.7, Albumin/Globulin Ratio 0.6 L Micro: Microbiology 03/03/21 15:50 Blood Culture (Wb) - Arm Left Blood Culture - Preliminary No growth in 48 hours. 03/03/21 19:20 Blood Culture (Wb) - Anticubital Left Blood Culture - Preliminary No growth in 48 hours. 03/03/21 17:47 Urine, Clean Catch Urine Culture - Final Staphylococcus epidermidis 03/04/21 09:02 Stool Enteric Bacteriology - Final 03/04/21 09:02 Stool C. difficile DNA Amplification - Final 03/03/21 16:50 Nasal Secretion SARS-CoV-2 Antigen (Rapid) - Final Rhythm Strip Rhythm Strip: Sinus Rhythm Rate: 96 Ectopy: None Physical Exam Const no apparent distress Constitutional Narrative: disheveled. General Appearance: cooperative Orientation / Consciousness: oriented to person and lethargic HEENT normocephalic and head/scalp atraumatic Eyes conjunctivae normal and no scleral icterus Eyes Narrative: no icterus Neck supple and no JVD Neck Narrative: no meningismus General: trachea midline Resp normal respiratory effort, normal air movement and clear to auscultation bilaterally Auscultation: diminished lung sounds Cardio regular rate, regular rhythm, S1 normal heart sound and S2 normal heart sound Peripheral Pulses: pulses 2+ throughout GI non-tender Inspection: abdominal distention Auscultation: hypoactive bowel sounds Extremity normal capillary refill and no clubbing, cyanosis or edema General Extremity: no tenderness to palpation of joints or extremities Skin General Skin Exam: no breakdown and turgor normal Lesions: no lesions Rashes: no rashes Neuro no focal motor deficits and no sensory deficits noted Speech: speech normal Motor Exam: general weakness Psych cooperative, affect normal and speech normal Appearance: appropriate Thought Process: confused Assessment & Plan Assessment/Plan (1) Neutropenic sepsis: PLAN: 1. Neutropenic sepsis -Patient continues to have neutropenia with white cell count of 0 -Neutropenic precautions ordered -Continue Neulasta -Continue vancomycin and ceftriaxone -Infectious disease following -PICC line unable to be placed due to low platelet count however PICC nurse placed peripheral IV 20-gauge in left AC. Will reevaluate for PICC placement if needed 2. Colonic distention, unknown cause -KUB obtained due to increased abdominal distention, demonstrates moderate colonic distention. -Kidney ultrasound normal -NPO ordered -Barium enema ordered 2. Acute kidney injury -Resolved -Repeat CMP ordered for a.m., will monitor BUN and creatinine closely with reinitiation of vancomycin 3. Pancytopenia -Will continue Neulasta -Oncology following,platelet transfusion for less than 20,000/evidence of bleeding[place] [address] today, CBC daily 4. Hypokalemia -Potassium 2.5, continue BID replacement -Potassium chloride 40 mEq IV ordered -CMP ordered for a.m. 5. Acute encephalopathy -Due to thrombocytopenia we will continue to treat empirically with Rocephin, vancomycin due to inability to perform lumbar puncture. -Patient increased confusion and lethargy today 6. Multiple myeloma -Patient currently undergoing chemotherapy -Oncology following, recommends blood transfusion for hgb less than 7 and to continue neupogen until neutropenia resolves. 7. Diarrhea -Cdiff and enteric panel negative -improved DVT prophylaxis-SCDs This patient was seen by Shannon Stewart, [facility]-C under the supervision of Dr. Morales Documented by User: Dr. Clarence Morales, 03/08/21 15:46 Subjective Subjective Patient still confused but states that he appears to be more alert today. Objective Data Lab / Micro Data Result Diagrams: 03/08/21 04:35 03/08/21 04:35 Physical Exam Const Constitutional Narrative: Awake. Afebrile. Still has some garbled speech. Neck supple Resp normal respiratory effort, normal air movement and clear to auscultation bilaterally Cardio regular rate, regular rhythm, S1 normal heart sound and S2 normal heart sound GI soft to palpation GI Narrative: Distended. Taut. Nontender. Hypoactive bowel sounds. Extremity normal capillary refill and no clubbing, cyanosis or edema General Extremity: no tenderness to palpation of joints or extremities Skin General Skin Exam: turgor normal Rashes: no rashes Neuro no sensory deficits noted Speech: speech abnormal Psych affect normal Appearance: appropriate Assessment & Plan Assessment/Plan (1) Neutropenic fever: (2) Neutropenia: QUALIFIERS: Neutropenia type: other drug-induced Qualified Code(s): D70.2 - Other drug-induced agranulocytosis (3) DANIEL (acute kidney injury): (4) Ileus: PLAN: 1. Neutropenic fever * May be related with a right lower lobe infiltrate. * Doubt any meningitis but patient is on ceftriaxone and vancomycin. * Follow-up cultures. UCx showing S. epidermidis * Infectious disease on consultation 2. Pancytopenia * 2/2 chemotherapy * Started on Neulasta * transfuse for Hg <7, plt < 10k * Monitor labs * Oncology following 4. Ileus * Barium enema attempted today but could not get past the rectum. CT scan was ordered * CT scan showed distention of colon down to the level of the rectum as well as multiple mildly dilated small bowel loops with air-fluid levels. * Concern for volvulus v [place]. Poor surgical candidate given prior performance status, especially now with pancytopenia. * Poor candidate for NG given thrombocytopenia. 3. Urinary retention * cabrera placed 4. Hypokalemia replace 5. Multiple myeloma follow up with oncology for resumption of chemotherapy 6. Prognosis: * guarded to poor * DW pt's (prior to CT). Overall, pt appears poor. She is potentially open to hospice, but will confer with oncology. Charges/Coding Visit Charges Inpatient E&M: 97512 Subs Hosp L3
[2021-03-08 12:54] LABS: Pathologist Review Reviewed
--- NOTE | 2021-03-08 13:47 | NURSING ---
Pt to radiology via [facility]
--- NOTE | 2021-03-08 14:00 | RAD.NOTE ---
Canceled BE per Dr Lopez. Unable to insert BE tip into the rectum. PIT CLERK informed of inability to complete exam.
--- NOTE | 2021-03-08 14:34 | CT_ITS ---
STUDY: CT ABDOMEN AND PELVIS WITHOUT CONTRAST REASON FOR EXAM: Male, 60 years old. Multiple myeloma. Abdominal distention. RADIATION DOSAGE (If Supplied By Facility): CTDIvol = ( 7.30 ) mGy, DLP = ( 373.76 ) mGycm TECHNIQUE: Transaxial images were obtained from the dome of the diaphragm to the symphysis pubis without oral contrast, and without intravenous contrast. Sagittal and coronal images were reconstructed. Individualized dose optimization techniques were used for this CT. COMPARISON: None. FINDINGS: Patchy infiltrates are seen at the right lung base with thickening of the right major and minor fissures. Mild degree of increased markings at the left lung base. 3 pulmonary nodules are seen in the posterior medial segment of the right lower lobe. The largest measures 1.1 cm. Coronary artery calcification. Normal liver. Normal gallbladder and extrahepatic biliary system. Normal spleen. Normal pancreas. Normal bilateral adrenal glands. Normal right kidney. Normal left kidney. Normal visualized stomach. Normal small intestine. There is gaseous and fluid distention of the colon down to the level of the rectum. There is mild dilatation of the small bowel loops with air-fluid levels. The appendix is visualized and appears normal. There is scattered atherosclerotic calcification of the abdominal aorta, without a demonstrated aneurysm. Normal inferior vena cava. Normal retroperitoneum. A HUERTA catheter is seen within the empty urinary bladder. There is a small umbilical hernia containing fat. Small left inguinal hernia containing fat. Heterogeneous appearance of the visualized thoracic and lumbar vertebrae with the multiple lytic lesions in keeping with the known multiple myeloma. This also evidence of loss of height of multiple vertebrae. CT/Abdomen/Pelvis without Cont IMPRESSION: There is distention of the colon down to the level of the rectum as well as multiple mildly dilated small bowel loops with air-fluid levels. Ileus should BE ruled out. Findings within the axial skeleton and keep with known multiple myeloma as described. There is also evidence of destruction of the sacrum. Electronically Signed: Donavon Lopez MD at 15:18 EDT , Service support ,
[2021-03-08] MEDS: Potassium Chloride 10mEq/100mL 10 MEQ/100 ML IV.SOLN. 100 MEQ IV BOLUS ×4 (14:42→20:14)
--- NOTE | 2021-03-08 14:55 | PCM.CONS.P ---
Assessment & Plan Assessment/Plan (1) Debility: (2) Neutropenic sepsis: (3) Acquired pancytopenia: (4) Acute encephalopathy: (5) Multiple myeloma: QUALIFIERS: Multiple myeloma remission status: not in remission Qualified Code(s): C90.00 - Multiple myeloma not having achieved remission (6) Thrombocytopenia: (7) Ileus: (8) Hypokalemia: PLAN: 60-year-old male with 20-year history of multiple myeloma, currently on chemotherapy and patient of Dr. Soto's. Seen today for palliative consultation for symptom management of profound weakness, overall decline, and debility. He possibly has an ileus. 1. Debility and weakness: He is not doing well with chemotherapy. He is now severely neutropenic. See below. 2. Neutropenic sepsis/pancytopenia/thrombocytopenia/multiple myeloma: Blood pressures have stabilized. He is lethargic today. Afebrile. Respiratory rate varying 20-28. Essentially bedbound at baseline, very weak otherwise. Receiving Granix. Tylenol as needed. Zofran as needed. Continues with IV antibiotics and fluids. Patient significant other, Alexa, is asking if Dr. Soto is recommending stopping treatment. She is wanting the patient to be comfortable and states they have talked about hospice in the past and she feels he is ready. I did explain hospice and palliative services to the patient and Alexa. They verbalized understanding and would like to speak with oncology prior to making any decisions regarding which service to go with. The patient would be hospice appropriate if he would decide he no longer wants to receive treatment for his multiple myeloma. It is unclear what is going on with his bowel as well. He is not a surgical candidate secondary to neutropenia. Thank you for the opportunity to participate in this patient's care, please do not hesitate to contact [facility] with any further questions or concerns. Palliative direct line is [phone]. We will follow up after further discussion with oncology. Greater than 50% of F2F visit dedicated to education and counseling of palliative care services, medications, comorbid conditions and potential assistance with management, and plan of care moving forward. Again, we will touch base tomorrow. Start time: 1456 End time: 1604 HPI Consult Data Date of Consult: 03/08/21 HPI Narrative HPI Narrative: EDGARDO CORREA, is a 60 M, patient of Dr. Soto, who presents to [facility] 03/03/2021 at the recommendation of his oncologist, patient was hypotensive and had some abnormal labs. Patient has multiple myeloma and completed chemotherapy approximately 1 week ago. He has been dealing with his cancer and chemo for over 10 years. He is essentially bedbound recently and has had increased confusion. Patient was admitted for sepsis related to neutropenia, pneumonia, and multiple myeloma. CT of the brain showed lytic and lucent calvarial lesions consistent with his history of multiple myeloma. Patient noted to have profound neutropenia with a white cell count of 0 and platelets 14. He was started on Neulasta and transfused with a unit of platelets and PRBCs. Hematology/oncology was consulted and saw the patient 03/04. He was also given IV antibiotics and infectious disease was consulted. It was recommended he stay on antibiotics until neutropenia resolved. His electrolytes were replaced and he is receiving physical therapy. Kidney ultrasound was obtained due to abdominal/colonic distention, which was normal. He was ordered a barium enema. The patient had an abdominal/pelvis CT today, results are pending. Nursing reports patient has a lot of anxiety gets worked up easily over things. Patient lives at home with his , Alexa Correa, in a single-story home with a ramp. assists him with care and takes him to his appointments. Again, patient is essentially bedbound. DME in the home include shower chair, BSC, walker, wheelchair, 3 L of oxygen through [employer]. has been inquiring about a hospital bed with low air loss mattress. Plan is to discharge patient home with home health care, family support, and possibly palliative care. Patient uses [facility] for pharmacy. Patient seen and examined. His significant other is at the bedside. She reports that she is waiting to hear from oncology to figure out the game plan as he is not a surgical candidate for his bowel issues. She would like to know if oncology is recommending stopping treatment, she brought up hospice services. She took care of her [id number] on hospice and is very familiar with services. We did discuss the differences between palliative and hospice care and the benefits/limitations of each. The patient does remain confused, it is difficult to understand him as he is mumbling words. He has been having some diarrhea, however Alexa states he has had IBS and basically diarrhea for the past 10 years since he was on chemotherapy. No current nausea or vomiting. He has some generalized edema, abdomen is somewhat distended but nontender. Bowel sounds appear to be hypoactive. He is cachectic. FOR[facility]LY [facility], [facility] Medical History History of renal dialysis Kidney disease Multiple myeloma Non-smoker On home oxygen therapy Tumor of lung Home Medications gabapentin 300 mg PO DAILY 06/25/18 [History Last Taken 03/03/21] oxycodone-acetaminophen 2 tab PO Q4H PRN PRN 06/25/18 [History Last Taken 03/02/21] potassium chloride 20 meq PO BID 06/25/18 [History Last Taken 03/03/21] Vitamin B-12 1 tab PO/SL DAILY 03/03/21 [History Last Taken 03/03/21] acyclovir 400 mg PO BID 03/03/21 [History Last Taken 03/03/21] levofloxacin 500 mg PO DAILY 03/03/21 [History Last Taken 03/03/21] ondansetron 8 mg PO PRN PRN 03/03/21 [History Last Taken 03/03/21] oxycodone 10 mg PO Q6H PRN PRN 03/03/21 [History Last Taken Unknown] pantoprazole 40 mg PO DAILY 03/03/21 [History Last Taken 03/03/21] Allergy/AdvReac Type Severity Reaction Status Date / Time hydrocodone AdvReac Other Verified 03/03/21 13:31 Lactose Intolerant AdvReac Diarrhea Uncoded 03/04/21 11:35 Social History Smoking Status: Never smoker ROS ROS Narrative Review of systems otherwise negative from a constitutional, HEENT, respiratory, cardiovascular, GI, genitourinary, musculoskeletal, skin, neurologic, psychiatric and hematologic system unless stated above. Physical Exam Const no apparent distress General Appearance: cooperative, lethargic, ill appearing and frail HEENT normocephalic and head/scalp atraumatic Neck supple General: trachea midline Resp normal respiratory effort Effort and Inspection: symmetric chest movement Auscultation: diminished lung sounds Cardio regular rate, regular rhythm, S1 normal heart sound and S2 normal heart sound GI non-tender Inspection: abdominal distention Auscultation: hypoactive bowel sounds Palpation: firm Extremity General Extremity: atrophy Skin General Skin Exam: ecchymosis, petechiae and purpura Neuro moves all extremities and no focal motor deficits Neuro Narrative: generalized weakness but following commands Psych Speech: soft and other mumbling, difficult to ascertain words Thought Process: confused
[2021-03-08 15:45] LABS: Platelet Count 28 K/mm3 (150-450)
[2021-03-08 15:53] LABS: Pathologist Review Reviewed
--- NOTE | 2021-03-08 16:32 | NURSING ---
This RN reviewed SN charting
[2021-03-09] VITALS (23 sets, daily range): BP systolic 75–109; BP diastolic 49–76; PULSE 31–111; RESP 18–20; TEMP 36.1–36.7; O2SAT 96–100
[2021-03-09] MEDS: Menthol/Lanolin/Calamine/Znox 113 GM Tube 1 APPLIC TOPICAL ×3 (05:29→21:20)
[2021-03-09] MEDS: 0.9% Normal Saline 1,000 ML 125 ML IV ×2 (06:46→22:26)
[2021-03-09 07:20] LABS: Hemoglobin 6.6 g/dL (13.0-16.5); Mean Corp Hgb Conc 31.4 g/dL (32-36); Mean Corpuscular Hgb 29.7 pg (27.0-32.0); Mean Corpuscular Volume 94.6 fL (80-94); NRBC Flagged by Analyzer 0 % (0-5); Neutrophil # 0.02 X10^3/uL (2.7-7.7); POSITIVE COUNT YES; POSITIVE DIFFERENTIAL YES; POSITIVE MORPHOLOGY YES; Platelet Count 11 K/mm3 (150-450); RBC Distribution Width CV 18.1 % (11.6-14.6); RBC Distribution Width SD 61.7 fl (35.1-43.9); Red Blood Count 2.22 M/mm3 (4.6-6.2)
[2021-03-09 07:25] LABS: Differential Indicated SCAN CRITERIA MET
[2021-03-09 08:08] LABS: ALB/GLOB Ratio 0.5 RATIO (0.9-2.4); AST(SGOT) 13 U/L (15-37); Alanine Aminotransfer ALT/SGPT 20 U/L (16-61); Albumin, Serum 1.9 g/dL (3.2-5.0); Alkaline Phosphatase 81 U/L (45-117); Anion Gap 10 (5-15); BUN 50 mg/dL (7-18); BUN/Creat Ratio 36.8 RATIO (10-20); Calcium,Total 7.8 mg/dL (8.5-10.1); Chloride 124 mmol/L (98-107); Creatinine, Serum 1.36 mg/dL (0.70-1.30); EST Glomerular Filtration Rate 57 mL/min (>60); Est Glom Filt Rate - Afr Amer 69 mL/min (>60); Estimated Creatinine Clearance 53.19 ml/min; Globulin 3.5 g/dL (2.2-4.2); Glucose 121 mg/dL (74-106); Potassium 2.5 mmol/L (3.5-5.1); Protein, Total 5.4 g/dL (6.4-8.2); Sodium Level 154 mmol/L (136-145)
[2021-03-09 08:25] LABS: Magnesium 1.6 mg/dL (1.6-2.6)
--- NOTE | 2021-03-09 10:30 | NURSING ---
This RN taking over care of patient at this time.
[2021-03-09] MEDS: TBO-FILGRASTIM 480 MCG/0.8 ML ML SC (10:33)
[2021-03-09] MEDS: Potassium Chloride 10mEq/100mL 10 MEQ/100 ML IV.SOLN. 100 MEQ IV BOLUS ×4 (10:38→14:28)
--- NOTE | 2021-03-09 10:47 | PCM.PN.ID ---
Physical Exam Narrative Awake, tracking, more lethargic this AM than previous Const Orientation / Consciousness: lethargic HEENT HEENT Narrative: No thrush Resp normal air movement and clear to auscultation bilaterally Cardio regular rate and regular rhythm GI normal to inspection, nondistended, normoactive bowel sounds Skin no rashes or lesions noted ID ID: Route of nutrition/ use of supplements: [] Nutritional Intake: [] IV Site: [] Cedillo Catheter: [] Assessment & Plan Assessment/Plan (1) Multiple myeloma: QUALIFIERS: Multiple myeloma remission status: not in remission Qualified Code(s): C90.00 - Multiple myeloma not having achieved remission (2) Acute encephalopathy: PLAN: Encephalopathy and pancytopenia. Covid rapid neg, unvaccinated. Ucx with MR-CoNS. Mental status slightly improved. Wbc is 0. Oncology consulted. On empiric coverage with vanc/ceftriaxone. Doubt meningitis due to clinical stability. Will follow (3) Pancytopenia:
[2021-03-09 11:21] LABS: Vancomycin, Trough Level 17.2 ug/mL (5.0-15.0)
--- NOTE | 2021-03-09 11:44 | PCM.RX.CS ---
Consult Pharmacy has been consulted to manage selected antiobiotic: Vancomycin Type of Consult: Follow-up Prior Doses of Antibiotics Received/Current Regimen: current dose is 750mg IV q24h Labs: Sodium 154 mmol/L (136-145) H 03/09/21 06:45 Potassium 2.5 mmol/L (3.5-5.1) L* 03/09/21 06:45 Chloride 124 mmol/L (98-107) H 03/09/21 06:45 Carbon Dioxide 20.0 mmol/L (21.0-32.0) L 03/09/21 06:45 Anion Gap 10 (5-15) 03/09/21 06:45 BUN 50 mg/dL (7-18) H 03/09/21 06:45 Creatinine 1.36 mg/dL (0.70-1.30) H 03/09/21 06:45 Est GFR (MDRD) Af Amer 69 mL/min (>60) 03/09/21 06:45 Est GFR (MDRD) Non-Af 57 mL/min (>60) L 03/09/21 06:45 BUN/Creatinine Ratio 36.8 RATIO (10-20) H 03/09/21 06:45 Glucose 121 mg/dL (74-106) H 03/09/21 06:45 Vancomycin Trough 17.2 ug/mL (5.0-15.0) H 03/09/21 10:05 Random Vancomycin 15.2 ug/mL (0.0-15.0) H 03/08/21 04:35 Microbiology: Microbiology 03/03/21 15:50 Blood Culture (Wb) - Arm Left Blood Culture - Final No growth in 5 days. 03/03/21 19:20 Blood Culture (Wb) - Anticubital Left Blood Culture - Final No growth in 5 days. 03/03/21 17:47 Urine, Clean Catch Urine Culture - Final Staphylococcus epidermidis 03/04/21 09:02 Stool Enteric Bacteriology - Final 03/04/21 09:02 Stool C. difficile DNA Amplification - Final 03/03/21 16:50 Nasal Secretion SARS-CoV-2 Antigen (Rapid) - Final Weight used for dosin.1 kg Estimated Creatinine Clearance: 53ml/min Pharmacy Plan for Drug Dosing: The vanc trough drawn today was 17.2 (drawn approximately 22 hours after the previous dose). It would have been slightly lower if drawn closer to the 24 hour vance. Since it is within goal range, will continue with same dosing. Will repeat a trough level per policy in 2 days. Pharmacy Service will continue to monitor and adjust dosing as required. Follow-Up Labs: Trough Vancomycin Labs to be done on [date and time ordered]: 03/11/21 11:30
--- NOTE | 2021-03-09 13:27 | PN_ITS ---
Documented by User: GATITO Mike 03/09/21 13:44 Subjective Subjective Patient seen and examined. Pt is lethargic and sleeping in bed, no distress noted. Patient is arousable but confused. Objective Data Objective Data Vital Signs: Vital Signs Temp Pulse Resp BP Pulse Ox 97.6 F L 88 20 H 109/74 97 03/09/21 12:30 03/09/21 12:58 03/09/21 12:58 03/09/21 12:58 03/09/21 12:58 Oxygen Flow Rate (L/min) 4 Oxygen Delivery Method Room Air Weight: 143 lb 8.335 oz Body Mass Index (BMI) 21.8 Intake & Output: Intake and Output for Last 24 Hours 03/07/21 03/08/21 03/09/21 23:59 23:59 23:59 Intake Total 1450 / 1450 3620 / 3620 67 / Output Total 1650 / 1950 1400 / 1675 475 / 475 Balance -200 / -500 2220 / 1945 1506.67 / 1506.67 Lab / Micro Data Result Diagrams: 03/09/21 06:45 03/09/21 06:45 Labs: Laboratory Results - last 24 hr 03/07/21 20:27: Plt Count 28 L* 03/08/21 04:35: Diff Path Review Reviewed 03/08/21 04:35: Phosphorus 3.0 03/09/21 06:45: WBC 0.0 L*, RBC 2.22 L, Hgb 6.6 L, Hct 21.0 L, MCV 94.6 H, MCH 29.7, MCHC 31.4 L, RDW Std Deviation 61.7 H, RDW Coeff of Nicky 18.1 H, Plt Count 11 L*, MPV TNP, Immature Gran % (Auto) 0.000, Neut % (Auto) 100.0 H, Lymph % (Auto) 0.0 L, Republic % (Auto) 0.0, Eos % (Auto) 0.0, Baso % (Auto) 0.0, Absolute Neuts (auto) 0.0 L, Absolute Lymphs (auto) 0.00 L, Nucleated RBC % 0, Diff Path Review May 03/09/21 06:45: Sodium 154 H, Potassium 2.5 L*, Chloride 124 H, Carbon Dioxide 20.0 L, Anion Gap 10, BUN 50 H, Creatinine 1.36 H, Estim Creat Clear Calc 53.19, Est GFR (MDRD) Af Amer 69, Est GFR (MDRD) Non-Af 57 L, BUN/Creatinine Ratio 36.8 H, Glucose 121 H, Calcium 7.8 L, Total Bilirubin 1.10 H, AST 13 L, ALT 20, Alkaline Phosphatase 81, Total Protein 5.4 L, Albumin 1.9 L, Globulin 3.5, Albumin/Globulin Ratio 0.5 L 03/09/21 06:45: Magnesium 1.6 03/09/21 10:05: Vancomycin Trough 17.2 H Micro: Microbiology 03/03/21 15:50 Blood Culture (Wb) - Arm Left Blood Culture - Final No growth in 5 days. 03/03/21 19:20 Blood Culture (Wb) - Anticubital Left Blood Culture - Final No growth in 5 days. 03/03/21 17:47 Urine, Clean Catch Urine Culture - Final Staphylococcus epidermidis 03/04/21 09:02 Stool Enteric Bacteriology - Final 03/04/21 09:02 Stool C. difficile DNA Amplification - Final 03/03/21 16:50 Nasal Secretion SARS-CoV-2 Antigen (Rapid) - Final Radiography Diagnostic Testing: Radiology Impression Abdomen/Pelvis CT 03/08/21 14:34 IMPRESSION: There is distention of the colon down to the level of the rectum as well as multiple mildly dilated small bowel loops with air-fluid levels. Ileus should BE ruled out. Findings within the axial skeleton and keep with known multiple myeloma as described. There is also evidence of destruction of the sacrum. Electronically Signed: Donavon Lopez MD at 15:18 EDT , Service support , Rhythm Strip Rhythm Strip: Sinus Rhythm Rate: 96 Ectopy: None Physical Exam Const no apparent distress General Appearance: cooperative Orientation / Consciousness: oriented to person and lethargic HEENT normocephalic and head/scalp atraumatic Eyes conjunctivae normal and no scleral icterus Eyes Narrative: no icterus Neck supple and no JVD Neck Narrative: no meningismus General: trachea midline Resp normal respiratory effort, normal air movement and clear to auscultation bilaterally Auscultation: diminished lung sounds Cardio regular rate, regular rhythm, S1 normal heart sound and S2 normal heart sound Rate: tachycardic Peripheral Pulses: pulses 2+ throughout GI soft to palpation GI Narrative: Distended. Taut. Nontender. Hypoactive bowel sounds. Inspection: abdominal distention Auscultation: hypoactive bowel sounds Extremity normal capillary refill and no clubbing, cyanosis or edema General Extremity: no tenderness to palpation of joints or extremities Skin General Skin Exam: no breakdown and turgor normal Lesions: no lesions Rashes: no rashes Neuro no focal motor deficits and no sensory deficits noted Speech: speech normal and speech abnormal Motor Exam: general weakness Psych cooperative, affect normal and speech normal Appearance: appropriate Thought Process: confused Assessment & Plan Assessment/Plan (1) Neutropenic fever: (2) Neutropenia: QUALIFIERS: Neutropenia type: other drug-induced Qualified Code(s): D70.2 - Other drug-induced agranulocytosis (3) DANIEL (acute kidney injury): (4) Ileus: PLAN: 1. Neutropenic sepsis -Patient continues to have neutropenia with white cell count of 0 -Neutropenic precautions ordered -Continue Neulasta -Continue vancomycin and ceftriaxone -Infectious disease following -PICC line unable to be placed due to low platelet count however PICC nurse placed peripheral IV 20-gauge in left AC. Will reevaluate for PICC placement if needed 2. Ileus -KUB obtained due to increased abdominal distention, demonstrates moderate colonic distention. -Kidney ultrasound normal -NPO ordered -Barium enema ordered, unable to be completed due to location of colonic distention. Concern for volvulus vs. angelica. patient is poor surgical candidate due to pancytopenia. 3. Pancytopenia -Will continue Neulasta -Oncology following, platelet transfusion for less than 20,000/evidence of bleeding. -Platelets down to 11,000 today, 2 units platelets ordered -Hemoglobin 6.6, 1 unit packed red blood cells ordered -CBC daily 4. Hypokalemia -Potassium 2.5, Potassium chloride 60 mEq IV ordered -CMP ordered for a.m. 5. Acute encephalopathy -Due to thrombocytopenia we will continue to treat empirically with Rocephin, vancomycin due to inability to perform lumbar puncture. -Patient continued confusion and lethargy today 6. Multiple myeloma -Patient currently undergoing chemotherapy -Oncology following, recommends blood transfusion for hgb less than 7 and to continue neupogen until neutropenia resolves. DVT prophylaxis-SCDs This patient was seen by Shannon Stewart NP-C under the supervision of Dr. Morales Documented by User: Dr. Clarence Morales, DO 03/09/21 16:59 Subjective Subjective Increased abdominal distention. Patient had a heart rate that dipped down into the 20s but then went back into normal sinus rhythm. No intervention was needed. Objective Data Lab / Micro Data Result Diagrams: 03/09/21 06:45 03/09/21 06:45 Physical Exam Const Constitutional Narrative: Confused. Afebrile. Eyes Eyes Narrative: No icterus Neck supple Resp normal respiratory effort, normal air movement and clear to auscultation bilaterally Cardio regular rate, regular rhythm, S1 normal heart sound and S2 normal heart sound GI GI Narrative: Distended and taut. High-pitched bowel sounds. Diffusely mildly tender. Extremity no calf tenderness Skin General Skin Exam: turgor normal Rashes: no rashes Neuro no sensory deficits noted Speech: speech abnormal Motor Exam: general weakness Assessment & Plan Assessment/Plan (1) Neutropenic fever: (2) DANIEL (acute kidney injury): (3) Ileus: (4) Neutropenic sepsis: (5) Acute encephalopathy: (6) Pancytopenia: PLAN: 1. Neutropenic fever No clear etiology Doubt any meningitis but patient is on ceftriaxone and vancomycin and acyclovir Follow-up cultures. UCx showing S. epidermidis Infectious disease on consultation 2. Pancytopenia 2/2 chemotherapy Started on Neulasta transfuse for Hg <7, plt < 10k Monitor labs Oncology following 03/09: transfuse platelets again. goal greater than 20k. 4. Ileus Barium enema attempted today but could not get past the rectum. CT scan was ordered CT scan showed distention of colon down to the level of the rectum as well as multiple mildly dilated small bowel loops with air-fluid levels. Concern for volvulus v Angelica v large bowel ileus v toxic megacolon. Non- surgical candidate given pancytopenia. Poor candidate for NG given thrombocytopenia. 3. Urinary retention cabrera placed 4. Hypokalemia replace 5. Multiple myeloma follow up with oncology for resumption of chemotherapy 6. Bradycardia transient and resolved spontanesouly 7. Prognosis: poor DW pt's explained his overall poor prognosis and my concern that he may not survive this hospitalization. She expressed understanding but wishes to defer to Dr. Soto if he feels that any further intervention would be futile before committing to hospice. She expresses that she is not against hospice but she wants Dr. Soto's blessing before proceeding with such. Charges/Coding Visit Charges Inpatient E&M: 58939 Subs Hosp L3
[2021-03-09 13:28] LABS: Pathologist Review Reviewed
--- NOTE | 2021-03-09 15:29 | EKG12_ITS ---
Test Reason : CP Blood Pressure : / mmHG Vent. Rate : 094 BPM Atrial Rate : 094 BPM P-R Int : 126 ms QRS Dur : 090 ms QT Int : 428 ms P-R-T Axes : 033 -10 125 degrees QTc Int : 535 ms Normal sinus rhythm [address] & T wave abnormality, consider lateral ischemia Abnormal ECG When compared with ECG of 07-MAR-2021 03:23, T wave inversion less evident in Anterior leads Confirmed by LAST VALDES, BALDOMERO ([id number]), supervising editor trailer SEJAL FLOWERS ([id number]) on 03/11/2021 1:51:49 PM Referred By: HOMA Confirmed By:BALDOMERO NI MD
[2021-03-09] MEDS: Ondansetron 4 MG/2 ML Vial IV (17:43)
[2021-03-09] MEDS: proCHLORPERazine 10 MG/2 ML Vial 5 MG IM (23:42)
[2021-03-10 02:05] VITALS: PULSE 37
[2021-03-10 02:11] VITALS: BP 83/56; PULSE 69; RESP 28; TEMP 36.4; O2SAT 100
--- NOTE | 2021-03-10 02:20 | NURSING ---
This RN called patient's spouse to update patient's condition. Patient has been less responsive, increased agonal breathing. Spouse said she will come in to see patient after getting grandson on the bus. Advised spouse we will update her with other change in patient condition.
[2021-03-10] MEDS: morphine (oral solution) 10MG/0.5ML Syringe 5 MG SL/PO ×2 (03:59→10:34)
[2021-03-10] MEDS: Atropine Sulfate 1% 2 ml Bottle 4 DRP SL (04:02)
--- NOTE | 2021-03-10 04:36 | NURSING ---
VSA not followed for VS per MD order. See nursing care for VS daily.
[2021-03-10] MEDS: LORazepam 2 MG/ML Bottle 0.5 MG SL (04:48)
--- NOTE | 2021-03-10 05:26 | PCM.HOSP.N ---
Hospitalist Note Patient with significant agitation, clinically worsening status. Patient with palliative following. present and requesting comfort medications be initiated. Patient currently DNR CCA no intubation however family is awaiting discussions with Dr. Soto and likely will transition to DNRCC. Comfort order sets instituted per patient request.
[2021-03-10] MEDS: LORazepam 2 MG/ML Syringe 1 MG IV ×2 (05:48→11:23)
[2021-03-10 07:00] VITALS: PULSE 85
[2021-03-10] MEDS: 0.9% Normal Saline 1,000 ML 125 ML IV (07:19)
[2021-03-10 07:55] VITALS: O2SAT 95
--- NOTE | 2021-03-10 08:03 | PN.ONC_ITS ---
Subjective Subjective Agitated and bradycardic earlier this morning. More comfortable now. Hypotensive. No recovery of counts. Ileus persists. Prognosis very poor and best to institute comfort measures/inpatient hospice. agrees. Code status updated. Vital Signs Temperature 97.5 F L 03/10/21 02:11 Temperature Source Temporal 03/10/21 02:11 Pulse Rate 69 03/10/21 02:11 Pulse Strength Weak (1+) 03/06/21 10:00 Respiratory Rate 28 H 03/10/21 02:11 Respiratory Effort Agonal 03/10/21 02:25 Respiratory Depth Normal 03/09/21 20:08 Respiratory Pattern Tachypnea 03/10/21 02:25 Blood Pressure 83/56 L 03/10/21 02:11 Blood Pressure Mean 65 03/10/21 02:11 Blood Pressure Source Monitor 03/10/21 02:11 Blood Pressure Position Semi-Fowlers 03/10/21 02:11 Blood Pressure Location Right Arm 03/10/21 02:11 Pulse Ox 100 03/10/21 02:11 Oxygen Delivery Method Room Air 03/10/21 02:25 Oxygen Flow Rate (L/min) 2 03/09/21 22:30 Laboratory Results - last 24 hr 03/07/21 08:12: Blood Type Cancelled, A1 Antigen Typing Cancelled, Rho(D) Type Cancelled, Antibody Screen NEGATIVE, Crossmatch See Detail 03/09/21 06:45: Diff Path Review Reviewed 03/09/21 06:45: Sodium 154 H, Potassium 2.5 L*, Chloride 124 H, Carbon Dioxide 20.0 L, Anion Gap 10, BUN 50 H, Creatinine 1.36 H, Estim Creat Clear Calc 53.19, Est GFR (MDRD) Af Amer 69, Est GFR (MDRD) Non-Af 57 L, BUN/Creatinine Ratio 36.8 H, Glucose 121 H, Calcium 7.8 L, Total Bilirubin 1.10 H, AST 13 L, ALT 20, Al kaline Phosphatase 81, Total Protein 5.4 L, Albumin 1.9 L, Globulin 3.5, Albumin/Globulin Ratio 0.5 L 03/09/21 06:45: Magnesium 1.6 03/09/21 10:05: Vancomycin Trough 17.2 H Microbiology 03/03/21 15:50 Blood Culture (Wb) - Arm Left Blood Culture - Final No growth in 5 days. 03/03/21 19:20 Blood Culture (Wb) - Anticubital Left Blood Culture - Final No growth in 5 days. Diagnostic Data Chest X-Ray 03/03/21 14:05 IMPRESSION: Findings suggestive of early right basilar infiltrate with blunting of the right costophrenic angle. Electronically Signed: Donavon Lopez MD at 14:42 EDT , Service support , Brain CT 03/03/21 16:30 IMPRESSION: Chronic involutional changes of the brain. No acute hemorrhage Lytic and lucent calvarial lesions consistent with patient''s history of multiple myeloma Electronically Signed: Juan A Crawford MD at 17:08 EDT , Service support , Renal Ultrasound 03/06/21 11:34 IMPRESSION: Left extrarenal pelvis. Electronically Signed: Ray Ackerman MD at 15:55 EDT , Service support , KUB X-Ray 03/07/21 07:47 IMPRESSION: Moderate colonic distention. Electronically Signed: Joseph Waite MD at 12:42 EDT Tel , Service support , Abdomen/Pelvis CT 03/08/21 14:34 IMPRESSION: There is distention of the colon down to the level of the rectum as well as multiple mildly dilated small bowel loops with air-fluid levels. Ileus should BE ruled out. Findings within the axial skeleton and keep with known multiple myeloma as described. There is also evidence of destruction of the sacrum. Electronically Signed: Donavon Lopez MD at 15:18 EDT , Service support ,
--- NOTE | 2021-03-10 10:46 | PCM.PROGNOTE ---
Subjective Subjective Seen and examined. Patient lying in bed resting comfortably at this time. Patient at bedside. Discussed with possible initiation of hospice to which patient agreeable. Objective Data Objective Data Vital Signs: Vital Signs Temp Pulse Resp BP Pulse Ox 97.5 F L 69 28 H 83/56 L 95 03/10/21 02:11 03/10/21 02:11 03/10/21 02:11 03/10/21 02:11 03/10/21 07:55 Oxygen Flow Rate (L/min) 2 Oxygen Delivery Method Room Air Weight: 143 lb 8.335 oz Body Mass Index (BMI) 21.8 Intake & Output: Intake and Output for Last 24 Hours 03/08/21 03/09/21 03/10/21 23:59 23:59 23:59 Intake Total 3620 / 3620 2850.42 / 2850.42 1000 / 1000 Output Total 1400 / 1675 825 / 825 Balance 2220 / 1945 2025.42 / 2025.42 1000 / 1000 Lab / Micro Data Result Diagrams: 03/09/21 06:45 03/09/21 06:45 Labs: Laboratory Results - last 24 hr 03/07/21 08:12: Blood Type Cancelled, A1 Antigen Typing Cancelled, Rho(D) Type Cancelled, Antibody Screen NEGATIVE, Crossmatch See Detail 03/09/21 06:45: Diff Path Review Reviewed 03/09/21 10:05: Vancomycin Trough 17.2 H Micro: Microbiology 03/03/21 15:50 Blood Culture (Wb) - Arm Left Blood Culture - Final No growth in 5 days. 03/03/21 19:20 Blood Culture (Wb) - Anticubital Left Blood Culture - Final No growth in 5 days. 03/03/21 17:47 Urine, Clean Catch Urine Culture - Final Staphylococcus epidermidis 03/04/21 09:02 Stool Enteric Bacteriology - Final 03/04/21 09:02 Stool C. difficile DNA Amplification - Final 03/03/21 16:50 Nasal Secretion SARS-CoV-2 Antigen (Rapid) - Final Rhythm Strip Rhythm Strip: Sinus Rhythm Rate: 96 Ectopy: None Physical Exam Const no apparent distress Orientation / Consciousness: oriented to person, confused and lethargic HEENT normocephalic and head/scalp atraumatic Eyes conjunctivae normal and no scleral icterus Eyes Narrative: No icterus Neck supple and no JVD Neck Narrative: no meningismus General: trachea midline Resp normal respiratory effort and normal air movement Effort and Inspection: tachypneic Auscultation: diminished lung sounds Cardio regular rate, regular rhythm, S1 normal heart sound and S2 normal heart sound Peripheral Pulses: pulses 2+ throughout GI Inspection: abdominal distention Auscultation: hypoactive bowel sounds Extremity normal capillary refill, no clubbing, cyanosis or edema and no calf tenderness General Extremity: no tenderness to palpation of joints or extremities Skin General Skin Exam: no breakdown and turgor normal Lesions: no lesions Rashes: no rashes Neuro no focal motor deficits and no sensory deficits noted Speech: speech abnormal Motor Exam: general weakness Psych speech normal Speech: incoherent Thought Process: confused Assessment & Plan Assessment/Plan (1) Debility: (2) Neutropenic sepsis: PLAN: 1. Multiple myeloma -Unable to obtain labs this a.m. likely secondary to patient's decreased blood pressure -After discussion with Dr. Soto and patient's hospice will be consulted due to patient's continued declining state and onset of complications including ileus -Dr. Jeremy Kelly Completed with Dr. Cole at [facility] who is willing to accept patient to inpatient unit. -Comfort care medications ordered, patient has received multiple doses of Ativan for increased restlessness This patient was seen by GATITO Mike under the supervision of Dr. Nick.
--- NOTE | 2021-03-10 11:33 | PCM.DC ---
Discharge Instructions Diet Discharge Diet: No restrictions Follow Up Care Test Results: Test results from this visit will be discussed in further detail at your follow-up appointment, if applicable. Discharge Plan Admission Admit Date/Time: 03/03/21 18:45 Primary Reason for Your Visit: Neutropenic sepsis Attending Provider: Jeanna Nick Primary Care Provider: Gerard Sena Consulting Providers: Og Velazquez ; João Licea ; Christine Paula ; Tyron Mayes ; Carlos Willoughby ; Leonel Soto Discharge Orders/Prescriptions Prescriptions: New lorazepam 2 mg/mL Solution 1 mg IV Q4H PRN PRN (Reason: severe agitation) Qty: 0 RF: 0 atropine 1 % Drops 4 drp sublingual Q1H PRN PRN (Reason: Secretions) Qty: 0 RF: 0 haloperidol lactate 2 mg/mL Concentrate 0.5 mg PO/SL Q3H PRN PRN (Reason: NAUSEA/VOMITING) Qty: 0 RF: 0 lorazepam 2 mg/mL Concentrate 0.5 mg sublingual Q4H PRN PRN (Reason: Agitation) Qty: 0 RF: 0 morphine concentrate 10 mg/0.5 mL Syringe 5 mg PO/SL Q2H PRN PRN (Reason: PAIN 1-10) Qty: 0 RF: 0 Discontinued oxycodone-acetaminophen 1 EACH tablet 2 tab PO Q4H PRN PRN (Reason: Pain) RF: 0 potassium chloride 20 MEQ tablet,ER particles/crystals 20 meq PO BID RF: 0 gabapentin 300 MG capsule 300 mg PO DAILY RF: 0 ondansetron 8 mg tablet,disintegrating 8 mg PO PRN PRN (Reason: Nausea) RF: 0 acyclovir 200 mg capsule 400 mg PO BID RF: 0 levofloxacin 500 mg tablet 500 mg PO DAILY RF: 0 pantoprazole 40 mg tablet,delayed release (DR/EC) 40 mg PO DAILY RF: 0 oxycodone 10 mg tablet 10 mg PO Q6H PRN PRN (Reason: Pain) RF: 0 Vitamin B-12 1 tab PO/SL DAILY RF: 0 Referrals / Follow Up: Gerard Sena MD [Primary Care Provider] - Disposition Disposition (needs filled in before D/C Order can be placed): Hospice in Medical Facility
--- NOTE | 2021-03-10 11:37 | PCM.DC.SUM ---
Documented by User: GATITO Mike 03/10/21 11:47 Providers Date of Admission: 03/03/21 Primary Care Physician: Dr. 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 Comment: Reason for Consult:: gluteal decubitus 03/03/21 19:00 Consult: Infectious Disease Routine Consulting Provider: Og Velazquez Reason for Consult: neutropenic sepsis r/o meningitis EMERGENT Consult: No Notified: Yes Date Notified: 03/04/21 Time Notified: 06:45 Method of Notification: Text Consult: Oncology/Hematology Routine Consulting Provider: [facility]ia Reason for Consult: multiple myeloma, profound neutropenia EMERGENT Consult: No Notified: Yes Date Notified: 03/04/21 Time Notified: 07:35 Method of Notification: telephone Reason For Visit: NEUTROPENIC SEPSIS Diagnosis Discharge Diagnosis (1) Debility: Status: Acute Code(s): R53.81 - Other malaise (2) Neutropenic sepsis: Status: Acute Code(s): A41.9 - Sepsis, unspecified organism; D70.9 - Neutropenia, unspecified Medications at Discharge Home Medications atropine 4 drp SUBLINGUAL Q1H PRN PRN #0 ml 03/10/21 haloperidol lactate 0.5 mg PO/SL Q3H PRN PRN #0 ml 03/10/21 lorazepam 0.5 mg SUBLINGUAL Q4H PRN PRN #0 ml 03/10/21 lorazepam 1 mg IV Q4H PRN PRN #0 ml 03/10/21 morphine concentrate 5 mg PO/SL Q2H PRN PRN #0 ea 03/10/21 Hospital Course Operations None Procedures Blood transfusion and EKG Summary of Care Provided Minutes Spent on Discharge: 35 Hospital Course: Patient is a 60-year-old male who originally presented to the ER on 03/03/2021 for sepsis work-up. Patient has a history of multiple myeloma and had received chemotherapy approximately 1 month prior. Patient was seen by oncology and had abnormal labs and was hypotensive so he was sent to the ER for evaluation. Patient was diagnosed with a right lower lobe pneumonia as well as neutropenic sepsis. Patient underwent a course of antibiotics with vancomycin and ceftriaxone. Patient also received Neupogen throughout his stay. Dr. Soto/Dr. Lopez following patient throughout stay. On 03/08/2021 patient was noted to have increased abdominal distention and a CT was obtained. Barium enema had been ordered however due to severe distention at the rectal level patient was unable to have barium enema mild. CT showed moderate colonic distention at that time. Due to patient's pancytopenia patient was not a candidate for surgery. Patient was on also unable to have NG placement due to continued thrombocytopenia. Patient was made n.p.o. at that time. Over the next 48 hours patient continued to deteriorate and abdominal distention increased. Patient was noted to be hypotensive overnight 03/09/2021 to 03/10/2021. On the a.m. of 03/10/2021 following discussion with patient's and Dr. Soto patient was deemed suitable for hospice due to multiple complications and patient failure to improve. Dr. Luna doctor was performed with Dr. Cole at [facility] who was agreeable to accepting patient to the inpatient unit. Patient will be discharged with comfort care meds only. Physical Exam Const Orientation / Consciousness: disoriented and lethargic HEENT normocephalic and head/scalp atraumatic Eyes conjunctivae normal and no scleral icterus Neck General: trachea midline Resp Effort and Inspection: tachypneic Auscultation: diminished lung sounds Cardio regular rate, regular rhythm, S1 normal heart sound and S2 normal heart sound Rate: bradycardia GI Inspection: abdominal distention Auscultation: hypoactive bowel sounds Extremity General Extremity: no tenderness to palpation of joints or extremities Skin General Skin Exam: no breakdown Lesions: no lesions Rashes: no rashes Neuro Speech: speech abnormal Details: Positive for garbled and slurred Motor Exam: general weakness Psych Activity / Motor Behavior: restless Weight / BMI Weight Weight: 143 lb 8.335 oz Body Mass Index (BMI) 21.8 ABG / Lab / Microbiology Data Result Diagrams: 03/09/21 06:45 03/09/21 06:45 Laboratory: Laboratory Results - last 24 hr 03/07/21 08:12: Blood Type Cancelled, A1 Antigen Typing Cancelled, Rho(D) Type Cancelled, Antibody Screen NEGATIVE, Crossmatch See Detail 03/09/21 06:45: Diff Path Review Reviewed Microbiology: Microbiology 03/03/21 15:50 Blood Culture (Wb) - Arm Left Blood Culture - Final No growth in 5 days. 03/03/21 19:20 Blood Culture (Wb) - Anticubital Left Blood Culture - Final No growth in 5 days. 03/03/21 17:47 Urine, Clean Catch Urine Culture - Final Staphylococcus epidermidis 03/04/21 09:02 Stool Enteric Bacteriology - Final 03/04/21 09:02 Stool C. difficile DNA Amplification - Final 03/03/21 16:50 Nasal Secretion SARS-CoV-2 Antigen (Rapid) - Final D/C Instructions Discharge Diet: No restrictions Meaningful Use Info Meaningful Use Diagnoses (Choose all that apply): None applicable Discharge Plan Admission Admit Date/Time: 03/03/21 18:45 Primary Reason for Your Visit: Neutropenic sepsis Attending Provider: Jeanna Nick Primary Care Provider: Gerard Sena Consulting Providers: Og Velazquez ; João Licea ; Christine Paula ; Tyron Mayes ; Carlos Willoughby ; Leonel Soto Discharge Orders/Prescriptions Prescriptions: New lorazepam 2 mg/mL Solution 1 mg IV Q4H PRN PRN (Reason: severe agitation) Qty: 0 RF: 0 atropine 1 % Drops 4 drp sublingual Q1H PRN PRN (Reason: Secretions) Qty: 0 RF: 0 haloperidol lactate 2 mg/mL Concentrate 0.5 mg PO/SL Q3H PRN PRN (Reason: NAUSEA/VOMITING) Qty: 0 RF: 0 lorazepam 2 mg/mL Concentrate 0.5 mg sublingual Q4H PRN PRN (Reason: Agitation) Qty: 0 RF: 0 morphine concentrate 10 mg/0.5 mL Syringe 5 mg PO/SL Q2H PRN PRN (Reason: PAIN 1-10) Qty: 0 RF: 0 Discontinued oxycodone-acetaminophen 1 EACH tablet 2 tab PO Q4H PRN PRN (Reason: Pain) RF: 0 potassium chloride 20 MEQ tablet,ER particles/crystals 20 meq PO BID RF: 0 gabapentin 300 MG capsule 300 mg PO DAILY RF: 0 ondansetron 8 mg tablet,disintegrating 8 mg PO PRN PRN (Reason: Nausea) RF: 0 acyclovir 200 mg capsule 400 mg PO BID RF: 0 levofloxacin 500 mg tablet 500 mg PO DAILY RF: 0 pantoprazole 40 mg tablet,delayed release (DR/EC) 40 mg PO DAILY RF: 0 oxycodone 10 mg tablet 10 mg PO Q6H PRN PRN (Reason: Pain) RF: 0 Vitamin B-12 1 tab PO/SL DAILY RF: 0 Referrals / Follow Up: Gerard Sena MD [Primary Care Provider] - Disposition Disposition (needs filled in before D/C Order can be placed): Hospice in Medical Facility Documented by User: Dr. Jeanna Nick MD 03/11/21 07:43 Providers Date of Admission: 03/03/21 Reason For Visit: NEUTROPENIC SEPSIS Medications at Discharge Home Medications atropine 4 drp SUBLINGUAL Q1H PRN PRN #0 ml 03/10/21 haloperidol lactate 0.5 mg PO/SL Q3H PRN PRN #0 ml 03/10/21 lorazepam 0.5 mg SUBLINGUAL Q4H PRN PRN #0 ml 03/10/21 lorazepam 1 mg IV Q4H PRN PRN #0 ml 03/10/21 morphine concentrate 5 mg PO/SL Q2H PRN PRN #0 ea 03/10/21 ABG / Lab / Microbiology Data Result Diagrams: 03/09/21 06:45 03/09/21 06:45 Discharge Plan Admission Admit Date/Time: 03/03/21 18:45 Primary Reason for Your Visit: Neutropenic sepsis Attending Provider: Jeanna Nick Primary Care Provider: Gerard Sena Consulting Providers: Og Velazquez ; João Licea ; Christine Paula ; Tyron Mayes ; Carlos Willoughby ; Leonel Soto Discharge Orders/Prescriptions Prescriptions: New lorazepam 2 mg/mL Solution 1 mg IV Q4H PRN PRN (Reason: severe agitation) Qty: 0 RF: 0 atropine 1 % Drops 4 drp sublingual Q1H PRN PRN (Reason: Secretions) Qty: 0 RF: 0 haloperidol lactate 2 mg/mL Concentrate 0.5 mg PO/SL Q3H PRN PRN (Reason: NAUSEA/VOMITING) Qty: 0 RF: 0 lorazepam 2 mg/mL Concentrate 0.5 mg sublingual Q4H PRN PRN (Reason: Agitation) Qty: 0 RF: 0 morphine concentrate 10 mg/0.5 mL Syringe 5 mg PO/SL Q2H PRN PRN (Reason: PAIN 1-10) Qty: 0 RF: 0 Discontinued oxycodone-acetaminophen 1 EACH tablet 2 tab PO Q4H PRN PRN (Reason: Pain) RF: 0 potassium chloride 20 MEQ tablet,ER particles/crystals 20 meq PO BID RF: 0 gabapentin 300 MG capsule 300 mg PO DAILY RF: 0 ondansetron 8 mg tablet,disintegrating 8 mg PO PRN PRN (Reason: Nausea) RF: 0 acyclovir 200 mg capsule 400 mg PO BID RF: 0 levofloxacin 500 mg tablet 500 mg PO DAILY RF: 0 pantoprazole 40 mg tablet,delayed release (DR/EC) 40 mg PO DAILY RF: 0 oxycodone 10 mg tablet 10 mg PO Q6H PRN PRN (Reason: Pain) RF: 0 Vitamin B-12 1 tab PO/SL DAILY RF: 0 Referrals / Follow Up: Gerard Sena MD [Primary Care Provider] - Disposition Disposition (needs filled in before D/C Order can be placed): Hospice in Medical Facility Charges/Coding Addendum Addendum: This patient was seen in conjunction with Shannon Stewart NP. I have independently interviewed and examined the patient and reviewed pertinent historical, laboratory, and other data. I have reviewed her note and concur with her documentation 60-year-old male with past medical history of multiple myeloma, on chemotherapy, follows with oncology who presented with abnormal labs and hypotension. Patient was found to have right lower lobe pneumonia as well as to be in neutropenic sepsis. Had on IV vancomycin and ceftriaxone. Oncology followed with the patient throughout his hospital stay. Patient was noted to have abdominal distention and CT of the abdomen and pelvis shows moderate colonic distention. Patient was not a candidate for surgery. He was also not able to have an NG tube placed. Patient was noted to be deteriorating with resultant hypotension. Patient was switched to hospice. He was discharged to the inpatient hospice facility. Visit Charges Inpatient E&M: 25423 Disch Hosp
--- NOTE | 2021-03-10 11:42 | PHA.DC.MR ---
Pharmacy Service has performed discharge medication reconciliation for this patient. The patient's discharge medication list was reviewed for discrepancies and discrepancies were resolved. Home Medications atropine 4 drp SUBLINGUAL Q1H PRN PRN #0 ml 03/10/21 haloperidol lactate 0.5 mg PO/SL Q3H PRN PRN #0 ml 03/10/21 lorazepam 0.5 mg SUBLINGUAL Q4H PRN PRN #0 ml 03/10/21 lorazepam 1 mg IV Q4H PRN PRN #0 ml 03/10/21 morphine concentrate 5 mg PO/SL Q2H PRN PRN #0 ea 03/10/21
== END 2021-03-10 12:15 | disposition hospice, inpatient (51) | DRG 871 ==
LOC: ED 18:06 → PCU 18:28
PROVIDERS: Hospitalist; Internal Medicine Infectious Disease; Nurse Practitioner Family; Admitting Provider Internal Medicine; Emergency Provider Emergency Medicine; PCP Family Medicine; Visit Provider Internal Medicine
DX: A41.9 Sepsis, unspecified organism (principal); J18.9 Pneumonia, unspecified organism; D61.810 Antineoplastic chemotherapy induced pancytopenia; G93.41 Metabolic encephalopathy; C90.00 Multiple myeloma not having achieved remission; K56.7 Ileus, unspecified; N17.9 Acute kidney failure, unspecified; D70.1 Agranulocytosis secondary to cancer chemotherapy; T45.1X5A Adverse effect of antineoplastic and immunosuppressive drugs, initial encounter; I95.9 Hypotension, unspecified; E87.6 Hypokalemia; R33.9 Retention of urine, unspecified; R50.81 Fever presenting with conditions classified elsewhere; R19.7 Diarrhea, unspecified; Z66 Do not resuscitate; Z74.01 Bed confinement status; Z79.899 Other long term (current) drug therapy
CPT/HCPCS: 36415; 36430; 70450; 71045; 74018; 74176; 76770; 80053; 80202; 81001; 83605; 83735; 84100; 84484; 85025; 85049; 85610; 85730; 86644; 86850; 86900; 86901; 86920; 86921; 86922; 86965; 87040; 87077; 87086; 87088; 87186; 87426; 87493; 87506; 93005; 97110; 97150; 97163; 97167; 97530; 97802; 99284; 99285; J7030; J7040; J7050; P9016; P9035; P9037; A4216; J0696; J1447; J2405